=== PATIENT | male | born 1930 | race Caucasian/White ===

== ENCOUNTER 2017-02-13 11:40 | Inpatient (IN) | payer MEDICARE ==
[2017-02-13] MEDS ORDERED: Sodium Chloride 0.9% 1,000 ML IV SCH (13:00)
[2017-02-13] MEDS ORDERED: Furosemide 40 MG/4 ML VIAL IVPUSH ONE (13:12)
--- NOTE | 2017-02-13 13:20 | EDM.PDOC ---
ED HPI GENERAL MEDICAL PROBLEM - General Chief Complaint: General Stated Complaint: TURNED AND FELL Time Seen by Provider: 02/13/17 11:55 Source of Information: Reports: Patient History Limitations: Reports: No Limitations - History of Present Illness INITIAL COMMENTS - FREE TEXT/NARRATIVE: pt arrived with pain in the left hip. He was at [employer] getting books and he turned and fell. He was not able to bear wt on the left leg. He does not take any meds. He did have a coronay bypass about 5-6 years ago. He has not been having further chest pain. He states he has not been short of breath but he is not usually very active. He has had chronic swelling in the ankle area. He states his appetite has been good and he has been having bms. Onset: Today Duration: Minutes:, Other ( Pt fell at [employer]. ) Location: Reports: Lower Extremity, Left Associated Symptoms: Reports: Shortness of Breath, Other (pain in left hip. ) Left Hip Pain Score (Numeric/FACES): 7 - Related Data Allergies Allergy/AdvReac Type Severity Reaction Status Date / Time No Known Allergies Allergy Verified 02/13/17 12:21 Home Meds: Home Meds NK [No Known Home Meds] 02/13/17 [History] Past Medical History Cardiovascular History: Reports: Hypertension - Infectious Disease History Infectious Disease History: Reports: Chicken Pox, Measles, Mumps - Past Surgical History HEENT Surgical History: Reports: Cataract Surgery Cardiovascular Surgical History: Reports: Coronary Artery Bypass Social & Family History - Tobacco Use Smoking Status *Q: Never Smoker - Caffeine Use Caffeine Use: Reports: Soda - Recreational Drug Use Recreational Drug Use: No ED ROS GENERAL - Review of Systems Review Of Systems: See Below Constitutional: Reports: No Symptoms HEENT: Reports: No Symptoms Respiratory: Reports: Shortness of Breath Cardiovascular: Reports: Edema Endocrine: Reports: No Symptoms GI/Abdominal: Reports: No Symptoms : Reports: No Symptoms Musculoskeletal: Reports: Other (pain in the left hip) Skin: Reports: No Symptoms ED EXAM, GENERAL - Physical Exam Exam: See Below Free Text/Narrative:: pt fell at [employer] where he was buying books. He is having pain in the left hip. He has had chronic swelling in the legs. Exam Limited By: No Limitations General Appearance: Alert, Moderate Distress Ears: Normal TMs Nose: Normal Inspection Throat/Mouth: Normal Inspection Head: Atraumatic Neck: Normal Inspection Respiratory/Chest: No Respiratory Distress, Decreased Breath Sounds, Rales Cardiovascular: Regular Rate, Rhythm GI/Abdominal: Soft, Non-Tender (Male) Exam: Deferred Rectal (Males) Exam: Deferred Back Exam: Normal Inspection Extremities: Pedal Edema, Redness, Other ( some open areas on the legs. ) Neurological: Alert, Oriented, Normal Cognition Psychiatric: Normal Affect Course - Vital Signs Last Recorded V/S: Last Vital Signs Temp 36.6 C 02/13/17 11:51 Pulse 69 02/13/17 11:51 Resp 20 02/13/17 11:51 BP 206/127 H 02/13/17 11:51 Pulse Ox 95 02/13/17 11:51 - Orders/Labs/Meds Orders: Active Orders 24 hr Category Date Time Status EKG Documentation Completion [RC] ASDIRECTED Care 02/13/17 13:13 Ordered De Guzman Catheter Insertion [Insert Urinary Catheter] [OM. Care 02/13/17 13:15 Ordered PC] Q24H Urinary Catheter Assessment [RC] ASDIRECTED Care 02/13/17 13:13 Ordered Chest 1V Frontal [CR] Stat Exams 02/13/17 12:18 Taken Echo Ltd [US] Stat Exams 02/13/17 13:21 Ordered Hip Min 2V or 3V w Pelvis Lt [CR] Stat Exams 02/13/17 12:17 Taken CULTURE URINE [RM] Stat Lab 02/13/17 13:14 Uncollected Sodium Chloride 0.9% [Normal Saline] 1,000 ml Med 02/13/17 13:00 Active IV ASDIRECTED EKG 12 Lead [EK] Routine Ther 02/13/17 13:13 Ordered Medication Orders Sodium Chloride (Normal Saline) 1,000 mls @ 100 mls/hr IV ASDIRECTED CECY Labs: Laboratory Tests 02/13/17 02/13/17 02/13/17 Range/Units 12:15 12:15 12:15 WBC 8.2 (4.5-11.0) K/uL RBC 4.57 (4.30-5.90) M/uL Hgb 12.6 (12.0-15.0) g/dL Hct 41.0 (40.0-54.0) % MCV 90 (80-98) fL MCH 28 (27-31) pg MCHC 31 L (32-36) % Plt Count 237 (150-400) K/uL Neut % (Auto) 73 H (36-66) % Lymph % (Auto) 17 L (24-44) % Clare % (Auto) 8 H (2-6) % Eos % (Auto) 1 L (2-4) % Baso % (Auto) 1 (0-1) % Sodium 141 (140-148) mmol/L Potassium 3.2 L (3.6-5.2) mmol/L Chloride 104 (100-108) mmol/L Carbon Dioxide 37 H (21-32) mmol/L Anion Gap 3.2 L (5.0-14.0) mmol/L BUN 11 (7-18) mg/dL Creatinine 1.0 (0.8-1.3) mg/dL Est Cr Clr Drug Dosing 55.43 mL/min Estimated GFR (MDRD) > 60 (>60) Glucose 113 H (74-106) mg/dL Calcium 8.4 L (8.5-10.1) mg/dL Total Bilirubin 0.6 (0.2-1.0) mg/dL AST 9 L (15-37) U/L ALT 7 L (12-78) U/L Alkaline Phosphatase 87 (46-116) U/L Plv-W-Lsljzqrrubb Pept 2455 H (5-450) pg/mL Total Protein 6.9 (6.4-8.2) g/dL Albumin 2.5 L (3.4-5.0) g/dL Globulin 4.4 H (2.3-3.5) g/dL Albumin/Globulin Ratio 0.6 L (1.2-2.2) Urine Color Urine Appearance Urine pH (4.5-8.0) Ur Specific [place] (1.008-1.030) Urine Protein (NEGATIVE) mg/dL Urine Glucose (UA) (NEGATIVE) mg/dL Urine Ketones (NEGATIVE) mg/dL Urine Occult Blood (NEGATIVE) Urine Nitrite (NEGAITVE) Urine Bilirubin (NEGATIVE) Urine Urobilinogen (NORMAL) mg/dL Ur Leukocyte Esterase (NEGATIVE) Urine RBC (0-5) Urine WBC (0-5) Ur Epithelial Cells Amorphous Sediment Urine Bacteria Urine Mucus 02/13/17 Range/Units 12:56 WBC (4.5-11.0) K/uL RBC (4.30-5.90) M/uL Hgb (12.0-15.0) g/dL Hct (40.0-54.0) % MCV (80-98) fL MCH (27-31) pg MCHC (32-36) % Plt Count (150-400) K/uL Neut % (Auto) (36-66) % Lymph % (Auto) (24-44) % Clare % (Auto) (2-6) % Eos % (Auto) (2-4) % Baso % (Auto) (0-1) % Sodium (140-148) mmol/L Potassium (3.6-5.2) mmol/L Chloride (100-108) mmol/L Carbon Dioxide (21-32) mmol/L Anion Gap (5.0-14.0) mmol/L BUN (7-18) mg/dL Creatinine (0.8-1.3) mg/dL Est Cr Clr Drug Dosing mL/min Estimated GFR (MDRD) (>60) Glucose (74-106) mg/dL Calcium (8.5-10.1) mg/dL Total Bilirubin (0.2-1.0) mg/dL AST (15-37) U/L ALT (12-78) U/L Alkaline Phosphatase (46-116) U/L Lta-J-Wbokvfmccmp Pept (5-450) pg/mL Total Protein (6.4-8.2) g/dL Albumin (3.4-5.0) g/dL Globulin (2.3-3.5) g/dL Albumin/Globulin Ratio (1.2-2.2) Urine Color Yellow Urine Appearance Cloudy Urine pH 7.0 (4.5-8.0) Ur Specific [place] 1.005 L (1.008-1.030) Urine Protein 30 H (NEGATIVE) mg/dL Urine Glucose (UA) Normal (NEGATIVE) mg/dL Urine Ketones Negative (NEGATIVE) mg/dL Urine Occult Blood Large (NEGATIVE) Urine Nitrite Negative (NEGAITVE) Urine Bilirubin Negative (NEGATIVE) Urine Urobilinogen Normal (NORMAL) mg/dL Ur Leukocyte Esterase Large (NEGATIVE) Urine RBC 40-50 H (0-5) Urine WBC 75-100 H (0-5) Ur Epithelial Cells Occasional Amorphous Sediment Rare Urine Bacteria Moderate Urine Mucus Rare Meds: Medications Generic Name Dose Route Start Last Admin Trade Name Freq PRN Reason Stop Dose Admin Sodium Chloride 1,000 mls @ 100 mls/hr 02/13/17 13:00 Normal Saline IV ASDIRECTED CECY Discontinued Medications Generic Name Dose Route Start Last Admin Trade Name Freq PRN Reason Stop Dose Admin Furosemide 60 mg 02/13/17 13:12 Lasix IVPUSH 02/13/17 13:13 ONETIME ONE - Re-Assessments/Exams Free Text/Narrative Re-Assessment/Exam: 02/13/17 13:31 pt has evidence of chf on the chest xray, His k is 3.2. His ekg showed a sinus rhythm with pacs. An xray of the hip shows a communted fracture of the hip intratrochateric Departure - Departure Time of Disposition: 13:32 Disposition: Admitted As Inpatient 66 Condition: Fair Clinical Impression: Hip fracture, left, CHF (congestive heart failure), Stasis dermatitis of both legs - Discharge Information Forms: ED Department Discharge Care Plan Goals: admit to Dr Nielson. - My Orders Last 24 Hours: My Active Orders 02/13/17 12:17 Hip Min 2V or 3V w Pelvis Lt [CR] Stat 02/13/17 12:18 Chest 1V Frontal [CR] Stat 02/13/17 13:00 Sodium Chloride 0.9% [Normal Saline] 1,000 ml IV ASDIRECTED 02/13/17 13:13 EKG Documentation Completion [RC] ASDIRECTED Urinary Catheter Assessment [RC] ASDIRECTED EKG 12 Lead [EK] Routine 02/13/17 13:14 CULTURE URINE [RM] Stat 02/13/17 13:15 De Guzman Catheter Insertion [Insert Urinary Catheter] [OM.PC] Q24H 02/13/17 13:21 Echo Ltd [US] Stat - Assessment/Plan Last 24 Hours: My Active Orders 02/13/17 12:17 Hip Min 2V or 3V w Pelvis Lt [CR] Stat 02/13/17 12:18 Chest 1V Frontal [CR] Stat 02/13/17 13:00 Sodium Chloride 0.9% [Normal Saline] 1,000 ml IV ASDIRECTED 02/13/17 13:13 EKG Documentation Completion [RC] ASDIRECTED Urinary Catheter Assessment [RC] ASDIRECTED EKG 12 Lead [EK] Routine 02/13/17 13:14 CULTURE URINE [RM] Stat 02/13/17 13:15 De Guzman Catheter Insertion [Insert Urinary Catheter] [OM.PC] Q24H 02/13/17 13:21 Echo Ltd [US] Stat
--- NOTE | 2017-02-13 13:28 | CR ---
Moderate cardiomegaly. Multiple posterior rib fractures on the right which may be remote. Correlate clinically. Mild interstitial densities within both lungs which may indicate mild vascular congestio n.
--- NOTE | 2017-02-13 13:52 | CR ---
Intertrochanteric fracture left hip with lesser trochanteric fracture fragment. Moderate degenerativ e changes right hip.
--- NOTE | 2017-02-13 14:32 | PCM.HP ---
H&P History of Present Illness - General Date of Service: 02/13/17 Admit Problem/Dx: Admission Diagnosis/Problem Admission Diagnosis/Problem Hip fracture requiring operative repair Source of Information: Patient, Provider History Limitations: Reports: No Limitations - History of Present Illness Initial Comments - Free Text/Narative: Axel returns to the emergency room today with left hip pain and inability to move his left hip. he was at a local store looking at books when he tripped and fell landing on his own excision left side. He reported sharp severe sudden pain in his left hip area. He tried to get up off the floor but was unable to move his leg. The pain does not radiate. He has not taken anything for the pain. Moving makes the pain more severe. He has not had recent difficulties with fevers but has noticed increased urinary frequency. Appetite and energy have been at baseline. He becomes short of breath after approximately one block of ambulation. This is chronic and stable for him. Lower extremity edema has been present for years and is stable. No recent difficulties with chest pain or exertional chest pain. Workup in the emergency room revealed evidence for mild congestive heart failure and a left hip fracture. He'll be admitted for medical management and surgical intervention. Left Hip Pain Score (Numeric/FACES): 7 - Related Data Allergies/Adverse Reactions: Allergies Allergy/AdvReac Type Severity Reaction Status Date / Time No Known Allergies Allergy Verified 02/13/17 12:21 Home Medications: Home Meds NK [No Known Home Meds] 02/13/17 [History] Past Medical History Cardiovascular History: Reports: Hypertension - Infectious Disease History Infectious Disease History: Reports: Chicken Pox, Measles, Mumps - Past Surgical History HEENT Surgical History: Reports: Cataract Surgery Cardiovascular Surgical History: Reports: Coronary Artery Bypass Social & Family History - Family History Cardiac: Denies: CAD - Tobacco Use Smoking Status *Q: Never Smoker - Caffeine Use Caffeine Use: Reports: Soda - Alcohol Use Alcohol Use History: No - Recreational Drug Use Recreational Drug Use: No H&P Review of Systems - Review of Systems: Review Of Systems: See Below Free Text/Narrative: A complete 12 point review of systems was obtained. Pertinent positives and negatives are noted in the history of present illness. All other systems were reviewed and were negative except as noted. Exam - Exam Exam: See Below - Vital Signs Vital Signs: Last Vital Signs Temp 36.6 C 02/13/17 11:51 Pulse 69 02/13/17 11:51 Resp 20 02/13/17 11:51 BP 206/127 H 02/13/17 11:51 Pulse Ox 95 02/13/17 11:51 Weight: 90.718 kg - Exam Quality Assessment: No: Supplemental Oxygen General: Alert, Oriented, Cooperative. No: Mild Distress HEENT: Conjunctiva Clear, Mucosa Moist & [place], Other (hard of hearing). No: Scleral Icterus Neck: Supple, Trachea Midline. No: Lymphadenopathy, Thyromegaly Lungs: Normal Respiratory Effort, Decreased Breath Sounds (mild at bases), Rales (few at bases) Cardiovascular: Regular Rate, Irregular Rhythm, Systolic Murmur GI/Abdominal Exam: Normal Bowel Sounds, Soft, Non-Tender, No Distention, No Mass Back Exam: No: Muscle Spasm, Paraspinal Tenderness Extremities: Pedal Edema (pitting edema with venous stasis changes on lower 2/3 of both legs), Other (left leg shortened and externally rotated) Skin: Warm, Dry. No: Ecchymosis Neuro Extensive - Mental Status: Alert, Oriented x3, Nl Response to Commands Neuro Extensive - Motor, Sensory, Reflexes: CN II-XII Intact. No: Dysarthria, Abnormal Motor, Tremor Psychiatric: Alert, Normal Affect - Patient Data Lab Results Last 24 hrs: Laboratory Results - last 24 hr 02/13/17 02/13/17 02/13/17 Range/Units 12:15 12:15 12:15 WBC 8.2 (4.5-11.0) K/uL RBC 4.57 (4.30-5.90) M/uL Hgb 12.6 (12.0-15.0) g/dL Hct 41.0 (40.0-54.0) % MCV 90 (80-98) fL MCH 28 (27-31) pg MCHC 31 L (32-36) % Plt Count 237 (150-400) K/uL Neut % (Auto) 73 H (36-66) % Lymph % (Auto) 17 L (24-44) % Eddy % (Auto) 8 H (2-6) % Eos % (Auto) 1 L (2-4) % Baso % (Auto) 1 (0-1) % Sodium 141 (140-148) mmol/L Potassium 3.2 L (3.6-5.2) mmol/L Chloride 104 (100-108) mmol/L Carbon Dioxide 37 H (21-32) mmol/L Anion Gap 3.2 L (5.0-14.0) mmol/L BUN 11 (7-18) mg/dL Creatinine 1.0 (0.8-1.3) mg/dL Est Cr Clr Drug Dosing 55.43 mL/min Estimated GFR (MDRD) > 60 (>60) Glucose 113 H (74-106) mg/dL Calcium 8.4 L (8.5-10.1) mg/dL Total Bilirubin 0.6 (0.2-1.0) mg/dL AST 9 L (15-37) U/L ALT 7 L (12-78) U/L Alkaline Phosphatase 87 (46-116) U/L Ppe-M-Uuuyurnlfws Pept 2455 H (5-450) pg/mL Total Protein 6.9 (6.4-8.2) g/dL Albumin 2.5 L (3.4-5.0) g/dL Globulin 4.4 H (2.3-3.5) g/dL Albumin/Globulin Ratio 0.6 L (1.2-2.2) Urine Color Urine Appearance Urine pH (4.5-8.0) Ur Specific [place] (1.008-1.030) Urine Protein (NEGATIVE) mg/dL Urine Glucose (UA) (NEGATIVE) mg/dL Urine Ketones (NEGATIVE) mg/dL Urine Occult Blood (NEGATIVE) Urine Nitrite (NEGAITVE) Urine Bilirubin (NEGATIVE) Urine Urobilinogen (NORMAL) mg/dL Ur Leukocyte Esterase (NEGATIVE) Urine RBC (0-5) Urine WBC (0-5) Ur Epithelial Cells Amorphous Sediment Urine Bacteria Urine Mucus 02/13/17 Range/Units 12:56 WBC (4.5-11.0) K/uL RBC (4.30-5.90) M/uL Hgb (12.0-15.0) g/dL Hct (40.0-54.0) % MCV (80-98) fL MCH (27-31) pg MCHC (32-36) % Plt Count (150-400) K/uL Neut % (Auto) (36-66) % Lymph % (Auto) (24-44) % Eddy % (Auto) (2-6) % Eos % (Auto) (2-4) % Baso % (Auto) (0-1) % Sodium (140-148) mmol/L Potassium (3.6-5.2) mmol/L Chloride (100-108) mmol/L Carbon Dioxide (21-32) mmol/L Anion Gap (5.0-14.0) mmol/L BUN (7-18) mg/dL Creatinine (0.8-1.3) mg/dL Est Cr Clr Drug Dosing mL/min Estimated GFR (MDRD) (>60) Glucose (74-106) mg/dL Calcium (8.5-10.1) mg/dL Total Bilirubin (0.2-1.0) mg/dL AST (15-37) U/L ALT (12-78) U/L Alkaline Phosphatase (46-116) U/L Pfd-O-Andhfgxpkno Pept (5-450) pg/mL Total Protein (6.4-8.2) g/dL Albumin (3.4-5.0) g/dL Globulin (2.3-3.5) g/dL Albumin/Globulin Ratio (1.2-2.2) Urine Color Yellow Urine Appearance Cloudy Urine pH 7.0 (4.5-8.0) Ur Specific [place] 1.005 L (1.008-1.030) Urine Protein 30 H (NEGATIVE) mg/dL Urine Glucose (UA) Normal (NEGATIVE) mg/dL Urine Ketones Negative (NEGATIVE) mg/dL Urine Occult Blood Large (NEGATIVE) Urine Nitrite Negative (NEGAITVE) Urine Bilirubin Negative (NEGATIVE) Urine Urobilinogen Normal (NORMAL) mg/dL Ur Leukocyte Esterase Large (NEGATIVE) Urine RBC 40-50 H (0-5) Urine WBC 75-100 H (0-5) Ur Epithelial Cells Occasional Amorphous Sediment Rare Urine Bacteria Moderate Urine Mucus Rare Result Diagrams: 02/13/17 12:15 02/13/17 12:15 Imaging Impressions Last 24 hrs: CXR - images personally reviewed - mild diffuse interstial changes concerning for CHF. No mass. Heart size is enlarged. Previous sternotomy XR right hip - images also personally reviewed - comminuted subtrochanteric left hip fracure EKG INTERPRETATION EKG Date: 02/13/17 Rhythm: NSR Rate (Beats/Min): 65 [place]: Normal P-Wave: Variable (PAC's) QRS: Normal ST-T: Normal QT: Normal *Q Meaningful Use (ADM) - VTE *Q VTE Criteria *Q: VTE Pharmacological Contraindications *Q: Patient Scheduled Surgery - VTE Risk Assess *Q Each Risk Factor Represents 1 Point: Swollen Legs, Current, Congestive Heart Failure, Less than 1 Month Total Score 1 Point Risk Factors: 2 Each Risk Factor Represents 2 Points: None Total Score 2 Point Risk Factors: 0 Each Risk Factor Represents 3 Points: Age 75 Years or Greater Total Score 3 Point Risk Factors: 3 Each Risk Factor Represents 5 Points: Hip, Pelvis or Leg Fracture, Less than 1 month Total Score 5 Point Risk Factors: 5 Venous Thromboembolism Risk Factor Score *Q: 10 - Stroke *Q Stroke Criteria *Q: - AMI *Q AMI Criteria *Q: - Problem List (1) Hip fracture, left SNOMED Code(s): 976322672 ICD Code: S72.002A - FRACTURE OF UNSP PART OF NECK OF LEFT FEMUR, INIT Status: Acute Current Visit: Yes Qualifiers: Encounter type: initial encounter Fracture type: closed Qualified Code(s) : S72.002A - Fracture of unspecified part of neck of left femur, initial encounter for closed fracture (2) CHF (congestive heart failure) SNOMED Code(s): 48012896 ICD Code: I50.9 - HEART FAILURE, UNSPECIFIED Status: Acute Current Visit : Yes Qualifiers: Congestive heart failure type: combined Congestive heart failure chronicity : chronic Qualified Code(s): I50.42 - Chronic combined systolic (congestive) and diastolic (congestive) heart failure (3) Hypokalemia SNOMED Code(s): 38402086 ICD Code: E87.6 - HYPOKALEMIA Status: Acute Current Visit: Yes Problem List Initiated/Reviewed/Updated: Yes Orders Last 24hrs: Active Orders 24 hr Category Date Time Status Patient Status Manage Transfer [TRANSFER] Routine ADT 02/13/17 14:11 Ordered EKG Documentation Completion [RC] ASDIRECTED Care 02/13/17 13:13 Active De Guzman Catheter Insertion [Insert Urinary Catheter] [OM. Care 02/13/17 13:15 Ordered PC] Q24H Urinary Catheter Assessment [RC] ASDIRECTED Care 02/13/17 13:13 Active Echo Comp wo Cont [US] Routine Exams 02/13/17 13:24 Taken CULTURE URINE [RM] Stat Lab 02/13/17 13:17 Received Sodium Chloride 0.9% [Normal Saline] 1,000 ml Med 02/13/17 13:00 Active IV ASDIRECTED cefTRIAXone [Rocephin] 2 gm Med 02/13/17 14:30 Active Sodium Chloride 0.9% [Normal Saline] 50 ml IV Q24H Resuscitation Status Routine Resus Stat 02/13/17 14:12 Ordered EKG 12 Lead [EK] Routine Ther 02/13/17 13:13 Ordered Medication Orders Sodium Chloride (Normal Saline) 1,000 mls @ 100 mls/hr IV ASDIRECTED CECY Ceftriaxone Sodium 2 gm/ (Sodium Chloride) 50 mls @ 100 mls/hr IV Q24H CECY Assessment/Plan Comment:: Assessment and plan - Closed left hip fracture - traumatic injury with resulting fracture. He will need operative intervention that needs some medical management prior to intervention. Once his blood pressure control has improved and he's had some diuresis he should be medically optimized for surgery. Physical activity is limited but he has not had recent difficulties with chest pain and clinical status has been stable since his coronary artery bypass several years ago. -Consult Dr. Archibald for surgical intervention, anticipate surgery on Monday -Medical management as below -Mechanical DVT prophylaxis -Nonweightbearing left leg Combined systolic and diastolic congestive heart failure - clinically he sounds fairly well compensated but does have some evidence for volume overload and would benefit from at least some diuresis and medication management. Formal echocardiogram read is pending but he appears to have mildly reduced LV function and mild mitral regurgitation. He has received furosemide in the emergency room. -intake and output monitoring -Initiating VIVIENNE inhibitor and beta jannette -Reassess volume status tomorrow -REJI stockings Accelerated hypertension - not on medications at home but has not been doctoring regularly. He has stage II hypertension and will require at least 2 medications. -Start lisinopril 20 mg daily -start low-dose metoprolol -monitor blood pressures and adjust as needed Coronary artery disease - history of 5 vessel bypass approximately 10 years ago. No recent symptoms to suggest ischemic heart disease is active. -Management as above Maintenance issues - - DVT prophylaxis - mechanical - GI prophylaxis - not indicated - Nutrition - low sodium diet - De Guzman catheter - placed in the emergency room with hip fracture and for intake and output monitoring CODE STATUS - full treatment without intubation and without ACLS Admission justification - This patient will be admitted for inpatient services and is medically appropriate meeting medical necessity for inpatient admission as outlined in my documentation. I reasonably expect the patient will require inpatient services that span a period time over 2 midnights. I reasonably expect this patient to be discharged or transferred within 96 hours after admission to the [facility]. Disposition - [facility] [place] [facility] after the hospital stay Primary care physician - none Miguel A Nielson M.D.
[2017-02-13] MEDS: cefTRIAXone 2 GM in Sodium Chloride 0.9% 50 ML IV SCH (15:08)
[2017-02-13] MEDS ORDERED: Ondansetron 4 MG/2 ML SDV IV PRN (16:36)
[2017-02-13] MEDS ORDERED: Ondansetron 4 MG Tab.DIS PO PRN (16:36)
[2017-02-13] MEDS ORDERED: Polyethylene Glycol 3350 Powder 17 GM Packet PO PRN (16:36)
[2017-02-13] MEDS ORDERED: Morphine 2 MG/ML Syringe IVPUSH PRN (16:36)
[2017-02-13] MEDS ORDERED: Potassium Chloride 20 MEQ Tab.ER PO ONE (17:30)
[2017-02-13] MEDS: Lisinopril 20 MG Tab PO SCH (17:35)
[2017-02-13] MEDS: oxyCODONE 5 MG Tab PO PRN (17:38)
[2017-02-13] MEDS: Metoprolol Tartrate 25 MG Tab PO SCH (20:34)
[2017-02-14] MEDS: oxyCODONE 5 MG Tab PO PRN ×4 (00:25→23:06)
[2017-02-14] MEDS: Metoprolol Tartrate 25 MG Tab PO SCH ×2 (08:57→21:50)
[2017-02-14] MEDS: Lisinopril 20 MG Tab PO SCH (08:57)
[2017-02-14] MEDS: Acetaminophen 325 MG Tab PO PRN ×2 (09:01→13:24)
--- NOTE | 2017-02-14 11:33 | PCM.PN ---
- General Info Date of Service: 02/14/17 Functional Status: Reports: Pain Controlled, Tolerating Diet - Review of Systems General: Denies: Fever Pulmonary: Denies: Shortness of Breath Cardiovascular: Denies: Chest Pain Musculoskeletal: Reports: Leg Pain (left hip) Systems Review Comment:: no acute events overnight. Blood pressures have improved with the addition of lisinopril and metoprolol. Hip pain is well controlled as long as he is sitting still but he has moderate pain with activity. No complaints of abdominal pain or nausea. Urine culture is pending at this time. Excellent diuresis yesterday with a single dose of furosemide and he appears to be well compensated today. - Patient Data Vitals - Most Recent: Last Vital Signs Temp 37.3 C 02/14/17 10:40 Pulse 66 02/14/17 10:40 Resp 16 02/14/17 10:40 BP 132/60 02/14/17 10:40 Pulse Ox 92 L 02/14/17 10:40 Weight - Most Recent: 88.6 kg I&O - Last 24 Hours: Intake & Output 02/13/17 02/14/17 02/14/17 22:59 06:59 14:59 Intake Total 1222 738 2232 Output Total 1375 1000 Balance -335 -400 1160 Lab Results Last 24 Hours: Laboratory Results - last 24 hr 02/14/17 02/14/17 Range/Units 04:45 04:45 WBC 11.8 H (4.5-11.0) K/uL RBC 4.22 L (4.30-5.90) M/uL Hgb 12.1 (12.0-15.0) g/dL Hct 37.2 L (40.0-54.0) % MCV 88 (80-98) fL MCH 29 (27-31) pg MCHC 33 (32-36) % Plt Count 238 (150-400) K/uL Sodium 138 L (140-148) mmol/L Potassium 4.8 (3.6-5.2) mmol/L Chloride 101 (100-108) mmol/L Carbon Dioxide 32 (21-32) mmol/L Anion Gap 9.8 (5.0-14.0) mmol/L BUN 13 (7-18) mg/dL Creatinine 1.1 (0.8-1.3) mg/dL Est Cr Clr Drug Dosing 48.85 mL/min Estimated GFR (MDRD) > 60 (>60) Glucose 122 H (74-106) mg/dL Calcium 8.1 L (8.5-10.1) mg/dL Med Orders - Current: Current Medications Acetaminophen (Tylenol) 650 mg PO Q4H PRN PRN Reason: Pain (Mild 1-3)/fever Last Admin: 02/14/17 09:01 Dose: 650 mg Ceftriaxone Sodium 2 gm/ (Sodium Chloride) 50 mls @ 100 mls/hr IV Q24H [facility] Last Admin: 02/13/17 15:08 Dose: 100 mls/hr Lisinopril (Prinivil) 20 mg PO DAILY [facility] Last Admin: 02/14/17 08:57 Dose: 20 mg Metoprolol Tartrate (Lopressor) 12.5 mg PO BID [facility] Last Admin: 02/14/17 08:57 Dose: 12.5 mg Morphine Sulfate (Morphine) 2 - 4 mg IVPUSH Q2H PRN PRN Reason: Pain (severe 7-10) Ondansetron HCl (Zofran Odt) 4 mg PO Q6H PRN PRN Reason: Nausea able to take PO Ondansetron HCl (Zofran) 4 mg IV Q6H PRN PRN Reason: Nausea/Vomiting Oxycodone HCl (Oxycodone) 5 - 10 mg PO Q4H PRN PRN Reason: Pain (moderate 4-6) Last Admin: 02/14/17 09:01 Dose: 10 mg Pneumococcal Polyvalent Vaccine (Pneumovax 23) 0.5 ml IM .ONCE ONE Stop: 02/18/17 09:01 Polyethylene Glycol (Miralax) 17 gm PO DAILY PRN PRN Reason: Constipation Senna/Docusate Sodium (Senna Plus) 1 tab PO BID PRN PRN Reason: Constipation Discontinued Medications Furosemide (Lasix) 60 mg IVPUSH ONETIME ONE Stop: 02/13/17 13:13 Last Admin: 02/13/17 15:06 Dose: 60 mg Sodium Chloride (Normal Saline) 1,000 mls @ 100 mls/hr IV ASDIRECTED [facility] Last Admin: 02/13/17 15:06 Dose: 100 mls/hr Potassium Chloride (Klor-Con M20) 40 meq PO ONETIME ONE Stop: 02/13/17 17:31 Last Admin: 02/13/17 17:35 Dose: 40 meq - Exam Quality Assessment: No: Supplemental Oxygen General: Alert, Oriented, Cooperative, No Acute Distress HEENT: Pupils Equal Neck: Supple Lungs: Clear to Auscultation, Normal Respiratory Effort Cardiovascular: Regular Rate, Irregular Rhythm. No: Murmurs GI/Abdominal Exam: Soft, No Distention Extremities: Pedal Edema (mild bilateral ankle edema) Skin: Warm, Dry Psy/Mental Status: Alert, Normal Affect - Problem List & Annotations (1) Hip fracture, left SNOMED Code(s): 415163739 Code(s): S72.002A - FRACTURE OF UNSP PART OF NECK OF LEFT FEMUR, INIT Status: Acute Current Visit: Yes Qualifiers: Encounter type: initial encounter Fracture type: closed Qualified Code(s) : S72.002A - Fracture of unspecified part of neck of left femur, initial encounter for closed fracture (2) CHF (congestive heart failure) SNOMED Code(s): 35745066 Code(s): I50.9 - HEART FAILURE, UNSPECIFIED Status: Acute Current Visit: Yes Qualifiers: Congestive heart failure type: combined Congestive heart failure chronicity : chronic Qualified Code(s): I50.42 - Chronic combined systolic (congestive) and diastolic (congestive) heart failure (3) Hypokalemia SNOMED Code(s): 15932735 Code(s): E87.6 - HYPOKALEMIA Status: Acute Current Visit: Yes - Problem List Review Problem List Initiated/Reviewed/Updated: Yes - My Orders Last 24 Hours: My Active Orders 02/18/17 09:00 Pneumococcal Polyvalent-23 Vac [Pneumovax 23] 0.5 ml IM .ONCE ONE - Plan Plan:: Assessment and plan - Closed left hip fracture - traumatic injury with resulting fracture. I believe he is medically optimized at this time and is safe for surgery tomorrow with the benefits of surgery outweigh the risks at this point. blood pressure levels have been acceptable and heart failure is well compensated. Left ventricular ejection fraction is only very mildly reduced. -anticipate surgery with Dr. 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 He is not hypoxic. Lower extremity edema has essentially resolved. -intake and output monitoring -continue VIVIENNE inhibitor and beta jannette -Reassess volume status daily -REJI stockings Accelerated hypertension - blood pressure much better after medications initiated yesterday. -continue lisinopril and metoprolol -monitor blood pressures and adjust as needed Coronary artery disease - history of 5 vessel bypass approximately 10 years ago. No recent symptoms to suggest ischemic heart disease is active. -Management as above Maintenance issues - - DVT prophylaxis - mechanical - GI prophylaxis - not indicated - Nutrition - low sodium diet - De Guzman catheter - placed in the emergency room with hip fracture and for intake and output monitoring Disposition - anticipate discharge to the [facility] after the hospital stay Primary care physician - [facility] (formerly [facility]) Miguel A Nielson M.D.
[2017-02-14] MEDS ORDERED: Nystatin Topical Powder 15 GM Bottle TOP SCH (11:45)
[2017-02-14] MEDS: Nystatin Topical Powder 15 GM Bottle TOP SCH ×2 (13:20→21:50)
[2017-02-14] MEDS: cefTRIAXone 2 GM in Sodium Chloride 0.9% 50 ML IV SCH (14:56)
[2017-02-15] MEDS: oxyCODONE 5 MG Tab PO PRN (03:03)
[2017-02-15] MEDS ORDERED: ceFAZolin 2 GM in Premix Bag 1 BAG IV ONE (07:00)
[2017-02-15] MEDS ORDERED: Sodium Chloride 0.9% 300 ML IV ONE (07:00)
[2017-02-15] MEDS: Metoprolol Tartrate 25 MG Tab PO SCH ×3 (07:50→21:14)
[2017-02-15] MEDS ORDERED: Bupivacaine 0.5%/EPINEPHrine 1:200,000 50 ML MDV ONE (08:51)
[2017-02-15] MEDS ORDERED: Povidone-Iodine 10% Soln 118.25 ML Bottle ONE (08:51)
[2017-02-15] MEDS: Nystatin Topical Powder 15 GM Bottle TOP SCH ×2 (09:02→21:14)
[2017-02-15] MEDS ORDERED: Propofol 200 MG/20 ML SDV ONE (09:10)
[2017-02-15] MEDS ORDERED: fentaNYL 100 MCG/2 ML SDV ONE (09:10)
[2017-02-15] MEDS ORDERED: Midazolam 1 MG/ML 2 ML SDV ONE (09:10)
[2017-02-15] MEDS ORDERED: Docusate Sodium 100 MG Cap PO PRN (11:29)
[2017-02-15] MEDS ORDERED: diphenhydrAMINE 50 MG/ML SDV IVPUSH PRN (11:29)
[2017-02-15] MEDS ORDERED: Bisacodyl 5 MG Tab PO PRN (11:29)
[2017-02-15] MEDS ORDERED: Acetaminophen/oxyCODONE 325-5 MG Tab PO PRN (11:29)
[2017-02-15] MEDS ORDERED: Sennosides 8.6 MG Tab PO PRN (11:29)
[2017-02-15] MEDS ORDERED: Zolpidem 5 MG Tab PO PRN (11:29)
[2017-02-15] MEDS ORDERED: Aluminum Hydroxide/Magnesium Hydroxide/Simethicone Susp 30 ML Cup PO PRN (11:29)
[2017-02-15] MEDS ORDERED: Naloxone 0.4 MG/ML SDV IVPUSH PRN (11:29)
[2017-02-15] MEDS ORDERED: Magnesium Hydroxide 400 MG/5 ML Susp 30 ML Cup PO PRN (11:29)
[2017-02-15] MEDS ORDERED: fentaNYL 100 MCG/2 ML SDV IVPUSH ONE (11:51)
[2017-02-15] MEDS: Lisinopril 20 MG Tab PO SCH (12:38)
[2017-02-15] MEDS: Potassium Chloride 20 MEQ, Lidocaine 1% 2 ML in Sodium Chloride 0.9% 100 ML IV SCH ×2 (12:38→14:32)
[2017-02-15] MEDS: Ketorolac 30 MG/ML SDV IVPUSH PRN (12:59)
[2017-02-15] MEDS: Lactated Ringers 1,000 ML IV SCH (14:45)
[2017-02-15] MEDS: ceFAZolin 2 GM in Sodium Chloride 0.9% 50 ML IV SCH (15:56)
--- NOTE | 2017-02-15 16:29 | PCM.PN ---
- General Info Date of Service: 02/15/17 Functional Status: Reports: Pain Controlled, Tolerating Diet - Review of Systems General: Reports: Other Pulmonary: Denies: Shortness of Breath Musculoskeletal: Reports: Leg Pain Systems Review Comment:: No acute events overnight. Blood pressure fairly well controlled yesterday but better this morning. Pain has been well-controlled. He is not having any fevers. Urine culture is growing no bacteria at this time and antibiotics will be discontinued. Surgical intervention plan to complete this morning. - Patient Data Vitals - Most Recent: Last Vital Signs Temp 36.7 C 02/15/17 15:57 Pulse 68 02/15/17 15:57 Resp 16 02/15/17 15:57 BP 104/56 L 02/15/17 15:57 Pulse Ox 99 02/15/17 15:07 Weight - Most Recent: 88.6 kg I&O - Last 24 Hours: Intake & Output 02/15/17 02/15/17 02/15/17 06:59 14:59 22:59 Intake Total 700 712 Output Total 1400 Balance -700 712 Lab Results Last 24 Hours: Laboratory Results - last 24 hr 02/15/17 02/15/17 Range/Units 06:00 06:00 WBC 12.0 H (4.5-11.0) K/uL RBC 3.95 L (4.30-5.90) M/uL Hgb 11.0 L (12.0-15.0) g/dL Hct 34.6 L (40.0-54.0) % MCV 88 (80-98) fL MCH 28 (27-31) pg MCHC 32 (32-36) % Plt Count 241 (150-400) K/uL Sodium 138 L (140-148) mmol/L Potassium 3.4 L (3.6-5.2) mmol/L Chloride 100 (100-108) mmol/L Carbon Dioxide 35 H (21-32) mmol/L Anion Gap 6.4 (5.0-14.0) mmol/L BUN 15 (7-18) mg/dL Creatinine 1.0 (0.8-1.3) mg/dL Est Cr Clr Drug Dosing 53.87 mL/min Estimated GFR (MDRD) > 60 (>60) Glucose 124 H (74-106) mg/dL Calcium 8.1 L (8.5-10.1) mg/dL Med Orders - Current: Current Medications Al Hydroxide/Mg Hydroxide (Mag-Al Plus) 30 ml PO Q4H PRN PRN Reason: Constipation Aspirin (Ecotrin) 325 mg PO BID [facility] Bisacodyl (Dulcolax) 10 mg PO DAILY PRN PRN Reason: Constipation Diazepam (Valium) 5 mg IVPUSH Q6H PRN PRN Reason: Spasms Diphenhydramine HCl (Benadryl) 25 mg IVPUSH Q4H PRN PRN Reason: Itching Docusate Sodium (Colace) 100 mg PO BID PRN PRN Reason: Constipation Lactated Ringer's (Ringers, Lactated) 1,000 mls @ 100 mls/hr IV ASDIRECTED [facility] Last Admin: 02/15/17 14:45 Dose: 100 mls/hr Cefazolin Sodium 2 gm/ Sodium (Chloride) 50 mls @ 100 mls/hr IV Q8H [facility] Stop: 02/16/17 08:29 Last Admin: 02/15/17 15:56 Dose: 100 mls/hr Ketorolac Tromethamine (Toradol) 15 mg IVPUSH Q8H PRN PRN Reason: Pain Stop: 02/20/17 11:29 Last Admin: 02/15/17 12:59 Dose: 15 mg Lisinopril (Prinivil) 20 mg PO DAILY [facility] Last Admin: 02/15/17 12:38 Dose: 20 mg Magnesium Hydroxide (Milk Of Magnesia) 30 ml PO BID PRN PRN Reason: Constipation Metoprolol Tartrate (Lopressor) 12.5 mg PO BID [facility] Last Admin: 02/15/17 08:41 Dose: Not Given Morphine Sulfate (Morphine) 2 - 4 mg IVPUSH Q2H PRN PRN Reason: Pain (severe 7-10) Last Admin: 02/15/17 13:00 Dose: 2 mg Nystatin (Nystop) 0 gm TOP BID [facility] Last Admin: 02/15/17 09:02 Dose: 1 applic Ondansetron HCl (Zofran Odt) 4 mg PO Q6H PRN PRN Reason: Nausea able to take PO Ondansetron HCl (Zofran) 4 mg IV Q6H PRN PRN Reason: Nausea/Vomiting Oxycodone/Acetaminophen (Percocet 325-5 Mg) 2 tab PO Q4H PRN PRN Reason: Pain Last Admin: 02/15/17 14:24 Dose: 2 tab Pneumococcal Polyvalent Vaccine (Pneumovax 23) 0.5 ml IM .ONCE ONE Stop: 02/18/17 09:01 Polyethylene Glycol (Miralax) 17 gm PO DAILY PRN PRN Reason: Constipation Senna (Senna) 8.6 mg PO BID PRN PRN Reason: Constipation Senna/Docusate Sodium (Senna Plus) 1 tab PO BID PRN PRN Reason: Constipation Sodium Chloride (Saline Flush) 10 ml FLUSH DAILY [facility] Tramadol HCl (Ultram) 100 mg PO Q6H PRN PRN Reason: Pain Zolpidem Tartrate (Ambien) 5 mg PO BEDTIME PRN PRN Reason: Sleep Discontinued Medications Acetaminophen (Tylenol) 650 mg PO Q4H PRN PRN Reason: Pain (Mild 1-3)/fever Last Admin: 02/14/17 13:24 Dose: 650 mg Bupivacaine HCl/Epinephrine Bitart (Marcaine 0.5%/Epinephrine 1:200,000) Confirm Administered Dose 50 ml .ROUTE .STK-MED ONE Stop: 02/15/17 08:52 Last Admin: 02/15/17 11:20 Dose: 20 ml Fentanyl (Sublimaze) Confirm Administered Dose 100 mcg .ROUTE .STK-MED ONE Stop: 02/15/17 09:11 Fentanyl (Sublimaze) 50 mcg IVPUSH ONETIME ONE Stop: 02/15/17 11:52 Last Admin: 02/15/17 11:57 Dose: 50 mcg Furosemide (Lasix) 60 mg IVPUSH ONETIME ONE Stop: 02/13/17 13:13 Last Admin: 02/13/17 15:06 Dose: 60 mg Sodium Chloride (Normal Saline) 1,000 mls @ 100 mls/hr IV ASDIRECTED [facility] Last Admin: 02/13/17 15:06 Dose: 100 mls/hr Ceftriaxone Sodium 2 gm/ (Sodium Chloride) 50 mls @ 100 mls/hr IV Q24H [facility] Last Admin: 02/14/17 14:56 Dose: 100 mls/hr Sodium Chloride (Normal Saline) 300 mls @ 999 mls/hr IV .BOLUS ONE Stop: 02/15/17 07:18 Last Admin: 02/15/17 09:01 Dose: 999 mls/hr Cefazolin Sodium/Dextrose 2 gm (/ Premix) 50 mls @ 100 mls/hr IV ONETIME ONE Stop: 02/15/17 07:29 Last Admin: 02/15/17 09:02 Dose: 100 mls/hr Potassium Chloride 20 meq/Lidocaine HCl 2 ml/ Sodium Chloride 112 mls @ 56 mls/ hr IV Q2H [facility] Stop: 02/15/17 13:59 Last Admin: 02/15/17 14:32 Dose: 56 mls/hr Midazolam HCl (Versed 1 Mg/Ml) Confirm Administered Dose 2 mg .ROUTE .STK-MED ONE Stop: 02/15/17 09:11 Naloxone HCl (Narcan) 0.1 mg IVPUSH ONETIME PRN PRN Reason: Oversedation Stop: 02/15/17 11:30 Oxycodone HCl (Oxycodone) 5 - 10 mg PO Q4H PRN PRN Reason: Pain (moderate 4-6) Last Admin: 02/15/17 03:03 Dose: 10 mg Potassium Chloride (Klor-Con M20) 40 meq PO ONETIME ONE Stop: 02/13/17 17:31 Last Admin: 02/13/17 17:35 Dose: 40 meq Povidone Iodine (Betadine 10% Soln) Confirm Administered Dose 1 ml .ROUTE .STK- MED ONE Stop: 02/15/17 08:52 Last Admin: 02/15/17 11:15 Dose: 30 ml Propofol (Diprivan 20 Ml) Confirm Administered Dose 200 mg .ROUTE .STK-MED ONE Stop: 02/15/17 09:11 - Exam Quality Assessment: Supplemental Oxygen General: Alert, Oriented, Cooperative, No Acute Distress Neck: Supple Lungs: Clear to Auscultation, Normal Respiratory Effort Cardiovascular: Regular Rate, Regular Rhythm GI/Abdominal Exam: Soft, No Distention Extremities: No Pedal Edema Skin: Warm, Dry Wound/Incisions: Dressing Dry and Intact Psy/Mental Status: Alert, Normal Affect - Problem List & Annotations (1) Hip fracture, left SNOMED Code(s): 493811880 Code(s): S72.002A - FRACTURE OF UNSP PART OF NECK OF LEFT FEMUR, INIT Status: Acute Current Visit: Yes Qualifiers: Encounter type: initial encounter Fracture type: closed Qualified Code(s) : S72.002A - Fracture of unspecified part of neck of left femur, initial encounter for closed fracture (2) CHF (congestive heart failure) SNOMED Code(s): 46576538 Code(s): I50.9 - HEART FAILURE, UNSPECIFIED Status: Acute Current Visit: Yes Qualifiers: Congestive heart failure type: combined Congestive heart failure chronicity : chronic Qualified Code(s): I50.42 - Chronic combined systolic (congestive) and diastolic (congestive) heart failure (3) Hypokalemia SNOMED Code(s): 75359591 Code(s): E87.6 - HYPOKALEMIA Status: Acute Current Visit: Yes - Problem List Review Problem List Initiated/Reviewed/Updated: Yes - My Orders Last 24 Hours: My Active Orders 02/18/17 09:00 Pneumococcal Polyvalent-23 Vac [Pneumovax 23] 0.5 ml IM .ONCE ONE - Plan Plan:: Assessment and plan - Closed left hip fracture - traumatic injury with resulting fracture. Status post surgical intervention 02/15. Clinically stable since surgery. 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 Only mildly reduced left ventricular function. -intake and output monitoring -continue VIVIENNE inhibitor and beta jannette -Reassess volume status daily -REJI stockings Accelerated hypertension - blood pressure control has improved with medications as below. -continue lisinopril and metoprolol -monitor blood pressures and adjust as needed Coronary artery disease - history of 5 vessel bypass approximately 10 years ago. No recent symptoms to suggest ischemic heart disease is active. -Management as above Maintenance issues - - DVT prophylaxis - mechanical - GI prophylaxis - not indicated - Nutrition - low sodium diet - De Guzman catheter - placed in the emergency room with hip fracture and for intake and output monitoring, hopefully this can be removed tomorrow Disposition - anticipate discharge to the intermediate after the hospital stay Primary care physician - [facility] Miguel A Nielson M.D.
--- NOTE | 2017-02-15 18:01 | OR ---
DATE OF PROCEDURE: 02/15/2017 PREOPERATIVE DIAGNOSIS: Left hip subtrochanteric fracture. POSTOPERATIVE DIAGNOSIS: Left hip subtrochanteric fracture. PROCEDURE: Left hip cephalomedullary nailing. STATION TENDER: FERNANDA Alvarez. ANESTHESIA: Spinal plus conscious sedation. FLUID: Lactated Ringer solution. ESTIMATED BLOOD LOSS: 200 mL. COMPLICATIONS: None. SPECIMEN: None. DISCHARGE DISPOSITION: Stable to PACU. INDICATIONS: Risks and benefits of the procedure were explained to the patient. Informed consent was obtained. DETAILS OF PROCEDURE: The patient was seen by myself and the Anesthesia staff in his hospital room where the operative site was marked. He was brought to the operative suite by the Anesthesia staff where spinal sedation and conscious sedation was administered. He was then placed into a trauma table and stirrups. All extremities were found to be well padded. The traction stirrups were then used for slight reduction of the fracture and under fluoroscopy, the left lower extremity was then prepped and draped in a sterile manner. Time- out was called identifying the correct patient, correct procedure, the correct site, and antibiotics had been in with appropriate period of time. AP fluoroscopy was used to identify a starting point which was just on the posterior third of the greater trochanter. An awl was used to start. I did have to open up the fracture site and then used AP and lateral fluoro in order to pass the guidewire down to the distal femur. We measured a 360 mm nail, so we used a 16 mm entry reamer followed by sequential reaming up to 13.5 mm. We then inserted our nail and then using the same incision that was used for the fracture reduction, we placed our guidewire for the screw into the femoral head. This took a few times to do, but we got the tip apex distance definitely under 2.5 cm on AP and lateral fluoro. We measured a 105 screw. I reamed and then placed the screw, which was 10 mm x 105. We then locked this in place, and then removed our outrigger or guidewires and took proximal final films, AP and lateral. We then focused our attention on the perfect [place] technique to place the distal and oblong screws which were 48 and 44 mm in length. The AP and lateral final films were then taken. We then copiously irrigated with saline. We closed our deep fascia with 0 Vicryl in a running manner followed by 2-0 subcutaneous sutures, followed by skin kaleb, followed by sterile dressing. The patient was then transferred to the hospital bed in the supine position and taken to the PACU in good condition. Mark Archibald DO /[id number]
[2017-02-15] MEDS: Aspirin 325 MG Tab.EC PO SCH (21:14)
[2017-02-16] MEDS: ceFAZolin 2 GM in Sodium Chloride 0.9% 50 ML IV SCH ×2 (00:07→08:28)
[2017-02-16] MEDS ORDERED: Sodium Chloride 0.9% 500 ML IV ONE (00:35)
[2017-02-16] MEDS: Lactated Ringers 1,000 ML IV SCH (01:47)
[2017-02-16] MEDS: Ketorolac 30 MG/ML SDV IVPUSH PRN ×2 (01:51→14:12)
[2017-02-16] MEDS: traMADol 50 MG Tab PO PRN ×3 (06:29→20:56)
--- NOTE | 2017-02-16 06:53 | PCM.SN ---
- Free Text/Narrative Note: time 0100; call from [address] [place] [address]; Mr. Ohara is having low urine output a; decrease urine output p; given IV Normal Saline 500ml over one hour. continue to monitor closely.
[2017-02-16] MEDS: Aspirin 325 MG Tab.EC PO SCH ×2 (08:30→20:42)
[2017-02-16] MEDS: Metoprolol Tartrate 25 MG Tab PO SCH ×2 (08:30→20:51)
[2017-02-16] MEDS: Lisinopril 20 MG Tab PO SCH (08:30)
[2017-02-16] MEDS: Sodium Chloride 0.9% 10 ML Syringe FLUSH SCH (08:31)
[2017-02-16] MEDS: Nystatin Topical Powder 15 GM Bottle TOP SCH ×2 (08:31→20:42)
[2017-02-16] MEDS ORDERED: oxyCODONE 5 MG Tab PO PRN (15:58)
--- NOTE | 2017-02-16 16:00 | PCM.PN ---
- General Info Date of Service: 02/16/17 Functional Status: Reports: Pain Controlled, Tolerating Diet - Review of Systems General: Reports: Weakness Pulmonary: Reports: Shortness of Breath Musculoskeletal: Reports: Leg Pain Systems Review Comment:: No acute events overnight but he did have some mild difficulty with low urine output. This responded well to a single bolus of normal saline. Blood pressures and heart rate have remained stable. No complaints of shortness of breath. Minimal lower extremity edema at this time. Leg pain has been very well controlled unless he is ambulating/moving. He has not had any fevers. Blood pressure has been well-controlled. - Patient Data Vitals - Most Recent: Last Vital Signs Temp 36.2 C 02/16/17 11:40 Pulse 70 02/16/17 11:40 Resp 16 02/16/17 11:40 BP 120/58 L 02/16/17 11:40 Pulse Ox 93 L 02/16/17 12:30 Weight - Most Recent: 94.3 kg I&O - Last 24 Hours: Intake & Output 02/16/17 02/16/17 02/16/17 06:59 14:59 22:59 Intake Total 2350 500 Output Total 244 Balance 2106 500 Lab Results Last 24 Hours: Laboratory Results - last 24 hr 02/16/17 02/16/17 Range/Units 05:40 05:40 WBC 8.4 (4.5-11.0) K/uL RBC 3.30 L (4.30-5.90) M/uL Hgb 9.5 L (12.0-15.0) g/dL Hct 29.9 L (40.0-54.0) % MCV 91 (80-98) fL MCH 29 (27-31) pg MCHC 32 (32-36) % Plt Count 184 (150-400) K/uL Sodium 139 L (140-148) mmol/L Potassium 3.9 (3.6-5.2) mmol/L Chloride 103 (100-108) mmol/L Carbon Dioxide 34 H (21-32) mmol/L Anion Gap 5.9 (5.0-14.0) mmol/L BUN 18 (7-18) mg/dL Creatinine 1.1 (0.8-1.3) mg/dL Est Cr Clr Drug Dosing 48.97 mL/min Estimated GFR (MDRD) > 60 (>60) Glucose 105 (74-106) mg/dL Calcium 7.9 L (8.5-10.1) mg/dL Med Orders - Current: Current Medications Al Hydroxide/Mg Hydroxide (Mag-Al Plus) 30 ml PO Q4H PRN PRN Reason: Constipation Aspirin (Ecotrin) 325 mg PO BID [facility] Last Admin: 02/16/17 08:30 Dose: 325 mg Bisacodyl (Dulcolax) 10 mg PO DAILY PRN PRN Reason: Constipation Diazepam (Valium) 5 mg IVPUSH Q6H PRN PRN Reason: Spasms Diphenhydramine HCl (Benadryl) 25 mg IVPUSH Q4H PRN PRN Reason: Itching Docusate Sodium (Colace) 100 mg PO BID PRN PRN Reason: Constipation Ketorolac Tromethamine (Toradol) 15 mg IVPUSH Q8H PRN PRN Reason: Pain Stop: 02/20/17 11:29 Last Admin: 02/16/17 14:12 Dose: 15 mg Lisinopril (Prinivil) 20 mg PO DAILY [facility] Last Admin: 02/16/17 08:30 Dose: 20 mg Magnesium Hydroxide (Milk Of Magnesia) 30 ml PO BID PRN PRN Reason: Constipation Metoprolol Tartrate (Lopressor) 12.5 mg PO BID [facility] Last Admin: 02/16/17 08:30 Dose: 12.5 mg Morphine Sulfate (Morphine) 2 - 4 mg IVPUSH Q2H PRN PRN Reason: Pain (severe 7-10) Last Admin: 02/15/17 13:00 Dose: 2 mg Nystatin (Nystop) 0 gm TOP BID [facility] Last Admin: 02/16/17 08:31 Dose: 1 applic Ondansetron HCl (Zofran Odt) 4 mg PO Q6H PRN PRN Reason: Nausea able to take PO Ondansetron HCl (Zofran) 4 mg IV Q6H PRN PRN Reason: Nausea/Vomiting Pneumococcal Polyvalent Vaccine (Pneumovax 23) 0.5 ml IM .ONCE ONE Stop: 02/18/17 09:01 Polyethylene Glycol (Miralax) 17 gm PO DAILY PRN PRN Reason: Constipation Senna (Senna) 8.6 mg PO BID PRN PRN Reason: Constipation Senna/Docusate Sodium (Senna Plus) 1 tab PO BID PRN PRN Reason: Constipation Sodium Chloride (Saline Flush) 10 ml FLUSH DAILY [facility] Last Admin: 02/16/17 08:31 Dose: Not Given Tramadol HCl (Ultram) 100 mg PO Q6H PRN PRN Reason: Pain Last Admin: 02/16/17 14:11 Dose: 100 mg Zolpidem Tartrate (Ambien) 5 mg PO BEDTIME PRN PRN Reason: Sleep Discontinued Medications Acetaminophen (Tylenol) 650 mg PO Q4H PRN PRN Reason: Pain (Mild 1-3)/fever Last Admin: 02/14/17 13:24 Dose: 650 mg Bupivacaine HCl/Epinephrine Bitart (Marcaine 0.5%/Epinephrine 1:200,000) Confirm Administered Dose 50 ml .ROUTE .STK-MED ONE Stop: 02/15/17 08:52 Last Admin: 02/15/17 11:20 Dose: 20 ml Fentanyl (Sublimaze) Confirm Administered Dose 100 mcg .ROUTE .STK-MED ONE Stop: 02/15/17 09:11 Fentanyl (Sublimaze) 50 mcg IVPUSH ONETIME ONE Stop: 02/15/17 11:52 Last Admin: 02/15/17 11:57 Dose: 50 mcg Furosemide (Lasix) 60 mg IVPUSH ONETIME ONE Stop: 02/13/17 13:13 Last Admin: 02/13/17 15:06 Dose: 60 mg Sodium Chloride (Normal Saline) 1,000 mls @ 100 mls/hr IV ASDIRECTED [facility] Last Admin: 02/13/17 15:06 Dose: 100 mls/hr Ceftriaxone Sodium 2 gm/ (Sodium Chloride) 50 mls @ 100 mls/hr IV Q24H [facility] Last Admin: 02/14/17 14:56 Dose: 100 mls/hr Sodium Chloride (Normal Saline) 300 mls @ 999 mls/hr IV .BOLUS ONE Stop: 02/15/17 07:18 Last Admin: 02/15/17 09:01 Dose: 999 mls/hr Cefazolin Sodium/Dextrose 2 gm (/ Premix) 50 mls @ 100 mls/hr IV ONETIME ONE Stop: 02/15/17 07:29 Last Admin: 02/15/17 09:02 Dose: 100 mls/hr Potassium Chloride 20 meq/Lidocaine HCl 2 ml/ Sodium Chloride 112 mls @ 56 mls/ hr IV Q2H [facility] Stop: 02/15/17 13:59 Last Admin: 02/15/17 14:32 Dose: 56 mls/hr Lactated Ringer's (Ringers, Lactated) 1,000 mls @ 100 mls/hr IV ASDIRECTED [facility] Last Admin: 02/16/17 01:47 Dose: 100 mls/hr Cefazolin Sodium 2 gm/ Sodium (Chloride) 50 mls @ 100 mls/hr IV Q8H [facility] Stop: 02/16/17 08:29 Last Admin: 02/16/17 08:28 Dose: 100 mls/hr Sodium Chloride (Normal Saline) 500 mls @ 500 mls/hr IV .BOLUS ONE Stop: 02/16/17 01:34 Last Admin: 02/16/17 00:45 Dose: 500 mls/hr Midazolam HCl (Versed 1 Mg/Ml) Confirm Administered Dose 2 mg .ROUTE .STK-MED ONE Stop: 02/15/17 09:11 Naloxone HCl (Narcan) 0.1 mg IVPUSH ONETIME PRN PRN Reason: Oversedation Stop: 02/15/17 11:30 Oxycodone HCl (Oxycodone) 5 - 10 mg PO Q4H PRN PRN Reason: Pain (moderate 4-6) Last Admin: 02/15/17 03:03 Dose: 10 mg Oxycodone/Acetaminophen (Percocet 325-5 Mg) 2 tab PO Q4H PRN PRN Reason: Pain Last Admin: 02/15/17 14:24 Dose: 2 tab Potassium Chloride (Klor-Con M20) 40 meq PO ONETIME ONE Stop: 02/13/17 17:31 Last Admin: 02/13/17 17:35 Dose: 40 meq Povidone Iodine (Betadine 10% Soln) Confirm Administered Dose 1 ml .ROUTE .STK- MED ONE Stop: 02/15/17 08:52 Last Admin: 02/15/17 11:15 Dose: 30 ml Propofol (Diprivan 20 Ml) Confirm Administered Dose 200 mg .ROUTE .STK-MED ONE Stop: 02/15/17 09:11 - Exam Quality Assessment: Supplemental Oxygen General: Alert, Oriented, Cooperative, No Acute Distress Neck: Supple Lungs: Clear to Auscultation, Normal Respiratory Effort Cardiovascular: Regular Rate, Regular Rhythm, Murmurs GI/Abdominal Exam: Soft, No Distention Extremities: Pedal Edema (mild bilateral ankle edema). No: Increased Warmth Skin: Warm, Dry Psy/Mental Status: Alert, Normal Affect - Problem List & Annotations (1) Hip fracture, left SNOMED Code(s): 202350489 Code(s): S72.002A - FRACTURE OF UNSP PART OF NECK OF LEFT FEMUR, INIT Status: Acute Current Visit: Yes Qualifiers: Encounter type: initial encounter Fracture type: closed Qualified Code(s) : S72.002A - Fracture of unspecified part of neck of left femur, initial encounter for closed fracture (2) CHF (congestive heart failure) SNOMED Code(s): 77101923 Code(s): I50.9 - HEART FAILURE, UNSPECIFIED Status: Acute Current Visit: Yes Qualifiers: Congestive heart failure type: combined Congestive heart failure chronicity : chronic Qualified Code(s): I50.42 - Chronic combined systolic (congestive) and diastolic (congestive) heart failure (3) Hypokalemia SNOMED Code(s): 96348399 Code(s): E87.6 - HYPOKALEMIA Status: Acute Current Visit: Yes - Problem List Review Problem List Initiated/Reviewed/Updated: Yes - My Orders Last 24 Hours: My Active Orders 02/16/17 05:04 Air Mattress [Pressure Reduction Mattress] [OM.PC] Routine 02/16/17 14:01 Convert IV to Saline Lock [OM.PC] Routine 02/16/17 15:56 Furosemide [Lasix] 20 mg IVPUSH ONETIME ONE 02/16/17 15:58 oxyCODONE 5 mg PO Q4H PRN 02/16/17 15:59 Acetaminophen [Tylenol] 650 mg PO Q4H PRN 02/18/17 09:00 Pneumococcal Polyvalent-23 Vac [Pneumovax 23] 0.5 ml IM .ONCE ONE - Plan Plan:: Assessment and plan - Closed left hip fracture - traumatic injury with resulting fracture. Status post surgical intervention 02/15. Clinically stable since surgery. 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 Echocardiogram showed mildly reduced left ventricular function. -intake and output monitoring -continue VIVIENNE inhibitor and beta jannette -Small dose of furosemide today -Reassess volume status tomorrow, I anticipate he will need a low dose maintenance diuretic -REJI stockings Accelerated hypertension - blood pressure control has been acceptable with medications as below -continue lisinopril and metoprolol -monitor blood pressures and adjust as needed Coronary artery disease - history of 5 vessel bypass approximately 10 years ago. No recent symptoms to suggest ischemic heart disease is active. -Management as above Maintenance issues - - DVT prophylaxis - twice daily aspirin - GI prophylaxis - not indicated - Nutrition - low sodium diet - De Guzman catheter - placed in the emergency room with hip fracture and for intake and output monitoring, removed today Disposition - anticipate discharge to the alf after the hospital stay Primary care physician - [facility] Miguel A Nielson M.D.
[2017-02-16] MEDS ORDERED: Furosemide 20 MG/2 ML VIAL IV ONE (16:15)
[2017-02-16] MEDS: Acetaminophen 325 MG Tab PO PRN (23:19)
[2017-02-17] MEDS: Acetaminophen 325 MG Tab PO PRN ×2 (08:20→15:07)
[2017-02-17] MEDS: traMADol 50 MG Tab PO PRN ×2 (08:31→15:08)
[2017-02-17] MEDS: Metoprolol Tartrate 25 MG Tab PO SCH (08:31)
[2017-02-17] MEDS: Aspirin 325 MG Tab.EC PO SCH (08:31)
[2017-02-17] MEDS: Lisinopril 20 MG Tab PO SCH (08:32)
[2017-02-17] MEDS: Nystatin Topical Powder 15 GM Bottle TOP SCH (08:33)
--- NOTE | 2017-02-17 09:16 | PCM.PN ---
- General Info Date of Service: 02/16/17 Functional Status: Reports: Pain Controlled, Tolerating Diet - Patient Data Vitals - Most Recent: Last Vital Signs Temp 35.7 C 02/17/17 06:51 Pulse 71 02/17/17 08:31 Resp 16 02/17/17 06:51 BP 120/62 02/17/17 08:32 Pulse Ox 93 L 02/17/17 06:51 Weight - Most Recent: 207 lb 14.334 oz I&O - Last 24 Hours: Intake & Output 02/16/17 02/17/17 02/17/17 22:59 06:59 14:59 Intake Total 620 400 Output Total 950 200 Balance -330 200 Lab Results Last 24 Hours: Laboratory Results - last 24 hr 02/17/17 02/17/17 Range/Units 05:11 05:11 WBC 8.0 (4.5-11.0) K/uL RBC 3.03 L (4.30-5.90) M/uL Hgb 9.0 L (12.0-15.0) g/dL Hct 26.9 L (40.0-54.0) % MCV 89 (80-98) fL MCH 30 (27-31) pg MCHC 34 (32-36) % Plt Count 199 (150-400) K/uL Sodium 137 L (140-148) mmol/L Potassium 3.5 L (3.6-5.2) mmol/L Chloride 102 (100-108) mmol/L Carbon Dioxide 34 H (21-32) mmol/L Anion Gap 4.5 L (5.0-14.0) mmol/L BUN 17 (7-18) mg/dL Creatinine 0.9 (0.8-1.3) mg/dL Est Cr Clr Drug Dosing 59.85 mL/min Estimated GFR (MDRD) > 60 (>60) Glucose 96 (74-106) mg/dL Calcium 7.7 L (8.5-10.1) mg/dL Med Orders - Current: Current Medications Acetaminophen (Tylenol) 650 mg PO Q4H PRN PRN Reason: Pain/Fever Last Admin: 02/17/17 08:20 Dose: 650 mg Al Hydroxide/Mg Hydroxide (Mag-Al Plus) 30 ml PO Q4H PRN PRN Reason: Constipation Aspirin (Ecotrin) 325 mg PO BID [facility] Last Admin: 02/17/17 08:31 Dose: 325 mg Bisacodyl (Dulcolax) 10 mg PO DAILY PRN PRN Reason: Constipation Diazepam (Valium) 5 mg IVPUSH Q6H PRN PRN Reason: Spasms Last Admin: 02/17/17 00:33 Dose: 5 mg Docusate Sodium (Colace) 100 mg PO BID PRN PRN Reason: Constipation Ketorolac Tromethamine (Toradol) 15 mg IVPUSH Q8H PRN PRN Reason: Pain Stop: 02/20/17 11:29 Last Admin: 02/16/17 14:12 Dose: 15 mg Lisinopril (Prinivil) 20 mg PO DAILY [facility] Last Admin: 02/17/17 08:32 Dose: 20 mg Magnesium Hydroxide (Milk Of Magnesia) 30 ml PO BID PRN PRN Reason: Constipation Metoprolol Tartrate (Lopressor) 12.5 mg PO BID [facility] Last Admin: 02/17/17 08:31 Dose: 12.5 mg Morphine Sulfate (Morphine) 2 - 4 mg IVPUSH Q2H PRN PRN Reason: Pain (severe 7-10) Last Admin: 02/15/17 13:00 Dose: 2 mg Nystatin (Nystop) 0 gm TOP BID [facility] Last Admin: 02/17/17 08:33 Dose: 1 applic Ondansetron HCl (Zofran Odt) 4 mg PO Q6H PRN PRN Reason: Nausea able to take PO Ondansetron HCl (Zofran) 4 mg IV Q6H PRN PRN Reason: Nausea/Vomiting Oxycodone HCl (Oxycodone) 5 mg PO Q4H PRN PRN Reason: Pain Last Admin: 02/16/17 23:20 Dose: 5 mg Pneumococcal Polyvalent Vaccine (Pneumovax 23) 0.5 ml IM .ONCE ONE Stop: 02/18/17 09:01 Polyethylene Glycol (Miralax) 17 gm PO DAILY PRN PRN Reason: Constipation Senna (Senna) 8.6 mg PO BID PRN PRN Reason: Constipation Senna/Docusate Sodium (Senna Plus) 1 tab PO BID PRN PRN Reason: Constipation Sodium Chloride (Saline Flush) 10 ml FLUSH DAILY [facility] Last Admin: 02/16/17 08:31 Dose: Not Given Tramadol HCl (Ultram) 100 mg PO Q6H PRN PRN Reason: Pain Last Admin: 02/17/17 08:31 Dose: 100 mg Zolpidem Tartrate (Ambien) 5 mg PO BEDTIME PRN PRN Reason: Sleep Discontinued Medications Acetaminophen (Tylenol) 650 mg PO Q4H PRN PRN Reason: Pain (Mild 1-3)/fever Last Admin: 02/14/17 13:24 Dose: 650 mg Bupivacaine HCl/Epinephrine Bitart (Marcaine 0.5%/Epinephrine 1:200,000) Confirm Administered Dose 50 ml .ROUTE .STK-MED ONE Stop: 02/15/17 08:52 Last Admin: 02/15/17 11:20 Dose: 20 ml Diphenhydramine HCl (Benadryl) 25 mg IVPUSH Q4H PRN PRN Reason: Itching Fentanyl (Sublimaze) Confirm Administered Dose 100 mcg .ROUTE .STK-MED ONE Stop: 02/15/17 09:11 Fentanyl (Sublimaze) 50 mcg IVPUSH ONETIME ONE Stop: 02/15/17 11:52 Last Admin: 02/15/17 11:57 Dose: 50 mcg Furosemide (Lasix) 60 mg IVPUSH ONETIME ONE Stop: 02/13/17 13:13 Last Admin: 02/13/17 15:06 Dose: 60 mg Furosemide (Lasix) 20 mg IV ONETIME ONE Stop: 02/16/17 16:16 Last Admin: 02/16/17 16:20 Dose: 20 mg Sodium Chloride (Normal Saline) 1,000 mls @ 100 mls/hr IV ASDIRECTED [facility] Last Admin: 02/13/17 15:06 Dose: 100 mls/hr Ceftriaxone Sodium 2 gm/ (Sodium Chloride) 50 mls @ 100 mls/hr IV Q24H [facility] Last Admin: 02/14/17 14:56 Dose: 100 mls/hr Sodium Chloride (Normal Saline) 300 mls @ 999 mls/hr IV .BOLUS ONE Stop: 02/15/17 07:18 Last Admin: 02/15/17 09:01 Dose: 999 mls/hr Cefazolin Sodium/Dextrose 2 gm (/ Premix) 50 mls @ 100 mls/hr IV ONETIME ONE Stop: 02/15/17 07:29 Last Admin: 02/15/17 09:02 Dose: 100 mls/hr Potassium Chloride 20 meq/Lidocaine HCl 2 ml/ Sodium Chloride 112 mls @ 56 mls/ hr IV Q2H [facility] Stop: 02/15/17 13:59 Last Admin: 02/15/17 14:32 Dose: 56 mls/hr Lactated Ringer's (Ringers, Lactated) 1,000 mls @ 100 mls/hr IV ASDIRECTED [facility] Last Admin: 02/16/17 01:47 Dose: 100 mls/hr Cefazolin Sodium 2 gm/ Sodium (Chloride) 50 mls @ 100 mls/hr IV Q8H [facility] Stop: 02/16/17 08:29 Last Admin: 02/16/17 08:28 Dose: 100 mls/hr Sodium Chloride (Normal Saline) 500 mls @ 500 mls/hr IV .BOLUS ONE Stop: 02/16/17 01:34 Last Admin: 02/16/17 00:45 Dose: 500 mls/hr Midazolam HCl (Versed 1 Mg/Ml) Confirm Administered Dose 2 mg .ROUTE .STK-MED ONE Stop: 02/15/17 09:11 Naloxone HCl (Narcan) 0.1 mg IVPUSH ONETIME PRN PRN Reason: Oversedation Stop: 02/15/17 11:30 Oxycodone HCl (Oxycodone) 5 - 10 mg PO Q4H PRN PRN Reason: Pain (moderate 4-6) Last Admin: 02/15/17 03:03 Dose: 10 mg Oxycodone/Acetaminophen (Percocet 325-5 Mg) 2 tab PO Q4H PRN PRN Reason: Pain Last Admin: 02/15/17 14:24 Dose: 2 tab Potassium Chloride (Klor-Con M20) 40 meq PO ONETIME ONE Stop: 02/13/17 17:31 Last Admin: 02/13/17 17:35 Dose: 40 meq Povidone Iodine (Betadine 10% Soln) Confirm Administered Dose 1 ml .ROUTE .STK- MED ONE Stop: 02/15/17 08:52 Last Admin: 02/15/17 11:15 Dose: 30 ml Propofol (Diprivan 20 Ml) Confirm Administered Dose 200 mg .ROUTE .STK-MED ONE Stop: 02/15/17 09:11 - Exam General: Alert, Oriented Extremities: Normal Inspection, No Pedal Edema, Normal Capillary Refill Skin: Warm, Dry, Intact Wound/Incisions: Healing Well, Dressing Dry and Intact Neurological: No New Focal Deficit Psy/Mental Status: Alert - Problem List & Annotations (1) Hip fracture, left SNOMED Code(s): 822790661 Code(s): S72.002A - FRACTURE OF UNSP PART OF NECK OF LEFT FEMUR, INIT Status: Acute Current Visit: Yes Qualifiers: Encounter type: initial encounter Fracture type: closed Qualified Code(s) : S72.002A - Fracture of unspecified part of neck of left femur, initial encounter for closed fracture - Problem List Review Problem List Initiated/Reviewed/Updated: Yes - My Orders Last 24 Hours: My Active Orders 02/16/17 09:00 Sodium Chloride 0.9% [Saline Flush] 10 ml FLUSH DAILY - Plan Plan:: Assessment and plan - Closed left hip fracture - traumatic injury with resulting fracture. Patient is status pod 1 and is doing well. Dressing is clean, dry, and intact. We will continue with pain management He will continue with PT/OT.
--- NOTE | 2017-02-17 09:17 | PCM.PN ---
- General Info Date of Service: 02/17/17 Functional Status: Reports: Pain Controlled, Tolerating Diet - Review of Systems General: Reports: No Symptoms - Patient Data Vitals - Most Recent: Last Vital Signs Temp 35.7 C 02/17/17 06:51 Pulse 71 02/17/17 08:31 Resp 16 02/17/17 06:51 BP 120/62 02/17/17 08:32 Pulse Ox 93 L 02/17/17 06:51 Weight - Most Recent: 207 lb 14.334 oz I&O - Last 24 Hours: Intake & Output 02/16/17 02/17/17 02/17/17 22:59 06:59 14:59 Intake Total 620 400 Output Total 950 200 Balance -330 200 Lab Results Last 24 Hours: Laboratory Results - last 24 hr 02/17/17 02/17/17 Range/Units 05:11 05:11 WBC 8.0 (4.5-11.0) K/uL RBC 3.03 L (4.30-5.90) M/uL Hgb 9.0 L (12.0-15.0) g/dL Hct 26.9 L (40.0-54.0) % MCV 89 (80-98) fL MCH 30 (27-31) pg MCHC 34 (32-36) % Plt Count 199 (150-400) K/uL Sodium 137 L (140-148) mmol/L Potassium 3.5 L (3.6-5.2) mmol/L Chloride 102 (100-108) mmol/L Carbon Dioxide 34 H (21-32) mmol/L Anion Gap 4.5 L (5.0-14.0) mmol/L BUN 17 (7-18) mg/dL Creatinine 0.9 (0.8-1.3) mg/dL Est Cr Clr Drug Dosing 59.85 mL/min Estimated GFR (MDRD) > 60 (>60) Glucose 96 (74-106) mg/dL Calcium 7.7 L (8.5-10.1) mg/dL Med Orders - Current: Current Medications Acetaminophen (Tylenol) 650 mg PO Q4H PRN PRN Reason: Pain/Fever Last Admin: 02/17/17 08:20 Dose: 650 mg Al Hydroxide/Mg Hydroxide (Mag-Al Plus) 30 ml PO Q4H PRN PRN Reason: Constipation Aspirin (Ecotrin) 325 mg PO BID [facility] Last Admin: 02/17/17 08:31 Dose: 325 mg Bisacodyl (Dulcolax) 10 mg PO DAILY PRN PRN Reason: Constipation Diazepam (Valium) 5 mg IVPUSH Q6H PRN PRN Reason: Spasms Last Admin: 02/17/17 00:33 Dose: 5 mg Docusate Sodium (Colace) 100 mg PO BID PRN PRN Reason: Constipation Ketorolac Tromethamine (Toradol) 15 mg IVPUSH Q8H PRN PRN Reason: Pain Stop: 02/20/17 11:29 Last Admin: 02/16/17 14:12 Dose: 15 mg Lisinopril (Prinivil) 20 mg PO DAILY [facility] Last Admin: 02/17/17 08:32 Dose: 20 mg Magnesium Hydroxide (Milk Of Magnesia) 30 ml PO BID PRN PRN Reason: Constipation Metoprolol Tartrate (Lopressor) 12.5 mg PO BID [facility] Last Admin: 02/17/17 08:31 Dose: 12.5 mg Morphine Sulfate (Morphine) 2 - 4 mg IVPUSH Q2H PRN PRN Reason: Pain (severe 7-10) Last Admin: 02/15/17 13:00 Dose: 2 mg Nystatin (Nystop) 0 gm TOP BID [facility] Last Admin: 02/17/17 08:33 Dose: 1 applic Ondansetron HCl (Zofran Odt) 4 mg PO Q6H PRN PRN Reason: Nausea able to take PO Ondansetron HCl (Zofran) 4 mg IV Q6H PRN PRN Reason: Nausea/Vomiting Oxycodone HCl (Oxycodone) 5 mg PO Q4H PRN PRN Reason: Pain Last Admin: 02/16/17 23:20 Dose: 5 mg Pneumococcal Polyvalent Vaccine (Pneumovax 23) 0.5 ml IM .ONCE ONE Stop: 02/18/17 09:01 Polyethylene Glycol (Miralax) 17 gm PO DAILY PRN PRN Reason: Constipation Senna (Senna) 8.6 mg PO BID PRN PRN Reason: Constipation Senna/Docusate Sodium (Senna Plus) 1 tab PO BID PRN PRN Reason: Constipation Sodium Chloride (Saline Flush) 10 ml FLUSH DAILY [facility] Last Admin: 02/16/17 08:31 Dose: Not Given Tramadol HCl (Ultram) 100 mg PO Q6H PRN PRN Reason: Pain Last Admin: 02/17/17 08:31 Dose: 100 mg Zolpidem Tartrate (Ambien) 5 mg PO BEDTIME PRN PRN Reason: Sleep Discontinued Medications Acetaminophen (Tylenol) 650 mg PO Q4H PRN PRN Reason: Pain (Mild 1-3)/fever Last Admin: 02/14/17 13:24 Dose: 650 mg Bupivacaine HCl/Epinephrine Bitart (Marcaine 0.5%/Epinephrine 1:200,000) Confirm Administered Dose 50 ml .ROUTE .STK-MED ONE Stop: 02/15/17 08:52 Last Admin: 02/15/17 11:20 Dose: 20 ml Diphenhydramine HCl (Benadryl) 25 mg IVPUSH Q4H PRN PRN Reason: Itching Fentanyl (Sublimaze) Confirm Administered Dose 100 mcg .ROUTE .STK-MED ONE Stop: 02/15/17 09:11 Fentanyl (Sublimaze) 50 mcg IVPUSH ONETIME ONE Stop: 02/15/17 11:52 Last Admin: 02/15/17 11:57 Dose: 50 mcg Furosemide (Lasix) 60 mg IVPUSH ONETIME ONE Stop: 02/13/17 13:13 Last Admin: 02/13/17 15:06 Dose: 60 mg Furosemide (Lasix) 20 mg IV ONETIME ONE Stop: 02/16/17 16:16 Last Admin: 02/16/17 16:20 Dose: 20 mg Sodium Chloride (Normal Saline) 1,000 mls @ 100 mls/hr IV ASDIRECTED [facility] Last Admin: 02/13/17 15:06 Dose: 100 mls/hr Ceftriaxone Sodium 2 gm/ (Sodium Chloride) 50 mls @ 100 mls/hr IV Q24H [facility] Last Admin: 02/14/17 14:56 Dose: 100 mls/hr Sodium Chloride (Normal Saline) 300 mls @ 999 mls/hr IV .BOLUS ONE Stop: 02/15/17 07:18 Last Admin: 02/15/17 09:01 Dose: 999 mls/hr Cefazolin Sodium/Dextrose 2 gm (/ Premix) 50 mls @ 100 mls/hr IV ONETIME ONE Stop: 02/15/17 07:29 Last Admin: 02/15/17 09:02 Dose: 100 mls/hr Potassium Chloride 20 meq/Lidocaine HCl 2 ml/ Sodium Chloride 112 mls @ 56 mls/ hr IV Q2H [facility] Stop: 02/15/17 13:59 Last Admin: 02/15/17 14:32 Dose: 56 mls/hr Lactated Ringer's (Ringers, Lactated) 1,000 mls @ 100 mls/hr IV ASDIRECTED [facility] Last Admin: 02/16/17 01:47 Dose: 100 mls/hr Cefazolin Sodium 2 gm/ Sodium (Chloride) 50 mls @ 100 mls/hr IV Q8H [facility] Stop: 02/16/17 08:29 Last Admin: 02/16/17 08:28 Dose: 100 mls/hr Sodium Chloride (Normal Saline) 500 mls @ 500 mls/hr IV .BOLUS ONE Stop: 02/16/17 01:34 Last Admin: 02/16/17 00:45 Dose: 500 mls/hr Midazolam HCl (Versed 1 Mg/Ml) Confirm Administered Dose 2 mg .ROUTE .STK-MED ONE Stop: 02/15/17 09:11 Naloxone HCl (Narcan) 0.1 mg IVPUSH ONETIME PRN PRN Reason: Oversedation Stop: 02/15/17 11:30 Oxycodone HCl (Oxycodone) 5 - 10 mg PO Q4H PRN PRN Reason: Pain (moderate 4-6) Last Admin: 02/15/17 03:03 Dose: 10 mg Oxycodone/Acetaminophen (Percocet 325-5 Mg) 2 tab PO Q4H PRN PRN Reason: Pain Last Admin: 02/15/17 14:24 Dose: 2 tab Potassium Chloride (Klor-Con M20) 40 meq PO ONETIME ONE Stop: 02/13/17 17:31 Last Admin: 02/13/17 17:35 Dose: 40 meq Povidone Iodine (Betadine 10% Soln) Confirm Administered Dose 1 ml .ROUTE .STK- MED ONE Stop: 02/15/17 08:52 Last Admin: 02/15/17 11:15 Dose: 30 ml Propofol (Diprivan 20 Ml) Confirm Administered Dose 200 mg .ROUTE .STK-MED ONE Stop: 02/15/17 09:11 - Exam General: Alert, Oriented Extremities: Normal Inspection, No Pedal Edema, Normal Capillary Refill Skin: Warm, Dry, Intact Wound/Incisions: Healing Well, Dressing Dry and Intact, No Drainage Neurological: No New Focal Deficit Psy/Mental Status: Alert - Problem List & Annotations (1) Hip fracture, left SNOMED Code(s): 710702011 Code(s): S72.002A - FRACTURE OF UNSP PART OF NECK OF LEFT FEMUR, INIT Status: Acute Current Visit: Yes Qualifiers: Encounter type: initial encounter Fracture type: closed Qualified Code(s) : S72.002A - Fracture of unspecified part of neck of left femur, initial encounter for closed fracture - Problem List Review Problem List Initiated/Reviewed/Updated: Yes - My Orders Last 24 Hours: My Active Orders 02/16/17 09:00 Sodium Chloride 0.9% [Saline Flush] 10 ml FLUSH DAILY - Plan Plan:: Assessment and plan - Closed left hip fracture - traumatic injury with resulting fracture. Patient is status pod 2 and is doing well. Dressing is clean, dry, and intact. We will continue with pain management He will continue with PT/OT.
[2017-02-17 10:32] VITALS: BP 119/57
[2017-02-17] MEDS: Sodium Chloride 0.9% 10 ML Syringe FLUSH SCH (11:50)
--- NOTE | 2017-02-17 12:25 | PCM.DCSUM1 ---
Discharge Summary - Hospital Course Brief History: 87-year-old male with history of coronary artery disease who presented after a fall and was admitted for management of a left hip fracture. - Discharge Data Discharge Date: 02/17/17 Discharge Disposition: DC/Tfer to SNF 03 Condition: Fair - Discharge Diagnosis/Problem(s) (1) Hip fracture, left SNOMED Code(s): 351223709 ICD Code: S72.002A - FRACTURE OF UNSP PART OF NECK OF LEFT FEMUR, INIT Status: Acute Qualifiers: Encounter type: initial encounter Fracture type: closed Qualified Code(s) : S72.002A - Fracture of unspecified part of neck of left femur, initial encounter for closed fracture (2) CHF (congestive heart failure) SNOMED Code(s): 92021881 ICD Code: I50.9 - HEART FAILURE, UNSPECIFIED Status: Acute Qualifiers: Congestive heart failure type: combined Congestive heart failure chronicity : chronic Qualified Code(s): I50.42 - Chronic combined systolic (congestive) and diastolic (congestive) heart failure (3) Hypokalemia SNOMED Code(s): 25097268 ICD Code: E87.6 - HYPOKALEMIA Status: Acute - Patient Summary/Data Operative Procedure(s) Performed: Left hip cephalomedulary nailing with Dr Archibald Consults: Consultations 02/15/17 11:29 OT Evaluation and Treatment [CONS] Routine Please Evaluate and Treat. OT Reason for Consult: Strengthening This query below is only for informational purposes and is not editable. Admission Diagnosis/Problem: Hip fracture requiring operative repair PT Evaluation and Treatment [CONS] Routine Please Evaluate and Treat. PT Reason for Consult: Strengthening This query below is only for informational purposes and is not editable. Admission Diagnosis/Problem: Hip fracture requiring operative repair Hospital Course: Axel presented to the emergency room with left hip pain after he fell while shopping for books. He was evaluated in the emergency room and there was evidence for a left hip fracture with a sub-trochanteric fracture on the left. He was also noted to be significantly hypertensive and there was evidence for congestive heart failure with mild pulmonary edema and significant lower extremity edema. He was given a dose of furosemide and admitted to the hospital for a medical tuneup prior to surgical intervention. An echocardiogram was completed in the emergency room and revealed mildly reduced left ventricular function as well as some mild valvular abnormalities but overall showed good left ventricular function. For his hypertension he was started on a low dose of metoprolol as well as lisinopril. After his initial dose of furosemide he had an excellent diuresis with resolution of his lower extremity edema. Pulmonary edema also resolved and he did not require supplemental oxygen after his initial dose of furosemide. The day after admission we did not have to further titrate medications and had good blood pressure control. On the second day after admission he had an uneventful cephalo-medullary nailing of his left hip fracture. Postoperatively he had some mild difficulty with low urine output and received fluid challenges. Otherwise he has been stable with well- controlled blood pressures. He did develop some mild edema and received 1 additional dose of furosemide postoperatively but has not required a maintenance dosing. he has done well with physical therapy and his vital signs have been stable. I believe he is safe for outpatient management. He would benefit from [facility]acute [facility] a [facility] with his home situation and living alone. I think that he will improve fairly quickly with subacute rehabilitation. He is going home with lisinopril and metoprolol to help manage his blood pressure and he should be good medications with his mild congestive heart failure and history of coronary artery disease. He will be on a twice daily aspirin for the next month for DVT prophylaxis. I placed referrals for both physical and occupational therapy. He'll be [facility] today. - Patient Instructions Diet: Heart Healthy Diet Activity: As Tolerated Driving: Do Not Drive Showering/Bathing: May Shower Notify Provider of: Fever, Increased Pain, Nausea and/or Vomiting Other/Special Instructions: 1. You were in the hospital for management of a left hip fracture that resulted after a fall. Your hip has been surgically repaired by Dr. Archibald. You can bear weight on your leg as tolerated. I recommend scheduled Tylenol as well as as needed oxycodone for pain control. 2. At the time of admission you had a significant elevation of your blood pressure. This has improved with the use of lisinopril and metoprolol and I recommend that we continue these after hospital discharge. There was also some evidence for congestive heart failure. This has responded very well to a single dose of furosemide. At this point I don't believe that you need a maintenance diuretic. Your echocardiogram showed that your ejection fraction is mildly reduced. 3. CODE STATUS - DO NOT RESUSCITATE and DO NOT INTUBATE. 4. Heart healthy diet. 5. Referral to physical therapy and occupational therapy for strengthening. 6. Please seek medical attention if you develops fever greater than 101, have worsening of your hip pain or you develop sudden shortness of breath or chest pain. - Discharge Plan Prescriptions/Med Rec: Acetaminophen 1,000 mg PO TID #90 tablet Aspirin [Ecotrin] 325 mg PO BID #60 tab.ec Carbamide Peroxide [Debrox 6.5% Otic Soln] 4 drop EARLF DAILY #1 bottle Docusate Sodium/Sennosides [Senna Plus] 1 tab PO BID PRN #60 tablet PRN Reason: Constipation Lisinopril [Prinivil] 20 mg PO DAILY #30 tablet Melatonin 5 mg PO BEDTIME #30 tablet Metoprolol Succinate 25 mg PO DAILY #30 tab.er.24h oxyCODONE 5 mg PO Q4H PRN #60 tablet PRN Reason: Pain Home Medications: Home Meds Acetaminophen 1,000 mg PO TID #90 tablet 02/17/17 [Rx] Aspirin [Ecotrin] 325 mg PO BID #60 tab.ec 02/17/17 [Rx] Carbamide Peroxide [Debrox 6.5% Otic Soln] 4 drop EARLF DAILY #1 bottle [Rx] Docusate Sodium/Sennosides [Senna Plus] 1 tab PO BID PRN #60 tablet 02/17/17 [Rx ] Lisinopril [Prinivil] 20 mg PO DAILY #30 tablet 02/17/17 [Rx] Melatonin 5 mg PO BEDTIME #30 tablet 02/17/17 [Rx] Metoprolol Succinate 25 mg PO DAILY #30 tab.er.24h 02/17/17 [Rx] oxyCODONE 5 mg PO Q4H PRN #60 tablet 02/17/17 [Rx] Patient Handouts: Open Reduction and Internal Fixation for Hip Fracture, Care After, Lisinopril tablets, Metoprolol extended-release tablets Forms: ED Department Discharge Referrals: PCP,None [Primary Care Provider] - (f/u with your regular doctor after you are released from the [facility]) - Discharge Summary/Plan Comment DC Time >30 min.: Yes (45 - new penitentiary discharge) - Patient Data Vitals - Most Recent: Last Vital Signs Temp 35.6 C 02/17/17 10:30 Pulse 71 02/17/17 08:31 Resp 16 02/17/17 10:30 BP 119/57 L 02/17/17 10:30 Pulse Ox 97 02/17/17 10:30 Weight - Most Recent: 94.3 kg I&O - Last 24 hours: Intake & Output 02/16/17 02/17/17 02/17/17 22:59 06:59 14:59 Intake Total 620 400 360 Output Total 950 200 500 Balance -330 200 -140 Lab Results - Last 24 hrs: Laboratory Results - last 24 hr 02/17/17 02/17/17 Range/Units 05:11 05:11 WBC 8.0 (4.5-11.0) K/uL RBC 3.03 L (4.30-5.90) M/uL Hgb 9.0 L (12.0-15.0) g/dL Hct 26.9 L (40.0-54.0) % MCV 89 (80-98) fL MCH 30 (27-31) pg MCHC 34 (32-36) % Plt Count 199 (150-400) K/uL Sodium 137 L (140-148) mmol/L Potassium 3.5 L (3.6-5.2) mmol/L Chloride 102 (100-108) mmol/L Carbon Dioxide 34 H (21-32) mmol/L Anion Gap 4.5 L (5.0-14.0) mmol/L BUN 17 (7-18) mg/dL Creatinine 0.9 (0.8-1.3) mg/dL Est Cr Clr Drug Dosing 59.85 mL/min Estimated GFR (MDRD) > 60 (>60) Glucose 96 (74-106) mg/dL Calcium 7.7 L (8.5-10.1) mg/dL Med Orders - Current: Current Medications Acetaminophen (Tylenol) 650 mg PO Q4H PRN PRN Reason: Pain/Fever Last Admin: 02/17/17 08:20 Dose: 650 mg Al Hydroxide/Mg Hydroxide (Mag-Al Plus) 30 ml PO Q4H PRN PRN Reason: Constipation Aspirin (Ecotrin) 325 mg PO BID CECY Last Admin: 02/17/17 08:31 Dose: 325 mg Bisacodyl (Dulcolax) 10 mg PO DAILY PRN PRN Reason: Constipation Diazepam (Valium) 5 mg IVPUSH Q6H PRN PRN Reason: Spasms Last Admin: 02/17/17 00:33 Dose: 5 mg Docusate Sodium (Colace) 100 mg PO BID PRN PRN Reason: Constipation Ketorolac Tromethamine (Toradol) 15 mg IVPUSH Q8H PRN PRN Reason: Pain Stop: 02/20/17 11:29 Last Admin: 02/16/17 14:12 Dose: 15 mg Lisinopril (Prinivil) 20 mg PO DAILY [facility] Last Admin: 02/17/17 08:32 Dose: 20 mg Magnesium Hydroxide (Milk Of Magnesia) 30 ml PO BID PRN PRN Reason: Constipation Metoprolol Tartrate (Lopressor) 12.5 mg PO BID [facility] Last Admin: 02/17/17 08:31 Dose: 12.5 mg Morphine Sulfate (Morphine) 2 - 4 mg IVPUSH Q2H PRN PRN Reason: Pain (severe 7-10) Last Admin: 02/15/17 13:00 Dose: 2 mg Nystatin (Nystop) 0 gm TOP BID [facility] Last Admin: 02/17/17 08:33 Dose: 1 applic Ondansetron HCl (Zofran Odt) 4 mg PO Q6H PRN PRN Reason: Nausea able to take PO Ondansetron HCl (Zofran) 4 mg IV Q6H PRN PRN Reason: Nausea/Vomiting Oxycodone HCl (Oxycodone) 5 mg PO Q4H PRN PRN Reason: Pain Last Admin: 02/16/17 23:20 Dose: 5 mg Pneumococcal Polyvalent Vaccine (Pneumovax 23) 0.5 ml IM .ONCE ONE Stop: 02/18/17 09:01 Polyethylene Glycol (Miralax) 17 gm PO DAILY PRN PRN Reason: Constipation Senna (Senna) 8.6 mg PO BID PRN PRN Reason: Constipation Senna/Docusate Sodium (Senna Plus) 1 tab PO BID PRN PRN Reason: Constipation Sodium Chloride (Saline Flush) 10 ml FLUSH DAILY [facility] Last Admin: 02/17/17 11:50 Dose: 10 ml Tramadol HCl (Ultram) 100 mg PO Q6H PRN PRN Reason: Pain Last Admin: 02/17/17 08:31 Dose: 100 mg Discontinued Medications Acetaminophen (Tylenol) 650 mg PO Q4H PRN PRN Reason: Pain (Mild 1-3)/fever Last Admin: 02/14/17 13:24 Dose: 650 mg Bupivacaine HCl/Epinephrine Bitart (Marcaine 0.5%/Epinephrine 1:200,000) Confirm Administered Dose 50 ml .ROUTE .STK-MED ONE Stop: 02/15/17 08:52 Last Admin: 02/15/17 11:20 Dose: 20 ml Diphenhydramine HCl (Benadryl) 25 mg IVPUSH Q4H PRN PRN Reason: Itching Fentanyl (Sublimaze) Confirm Administered Dose 100 mcg .ROUTE .STK-MED ONE Stop: 02/15/17 09:11 Fentanyl (Sublimaze) 50 mcg IVPUSH ONETIME ONE Stop: 02/15/17 11:52 Last Admin: 02/15/17 11:57 Dose: 50 mcg Furosemide (Lasix) 60 mg IVPUSH ONETIME ONE Stop: 02/13/17 13:13 Last Admin: 02/13/17 15:06 Dose: 60 mg Furosemide (Lasix) 20 mg IV ONETIME ONE Stop: 02/16/17 16:16 Last Admin: 02/16/17 16:20 Dose: 20 mg Sodium Chloride (Normal Saline) 1,000 mls @ 100 mls/hr IV ASDIRECTED [facility] Last Admin: 02/13/17 15:06 Dose: 100 mls/hr Ceftriaxone Sodium 2 gm/ (Sodium Chloride) 50 mls @ 100 mls/hr IV Q24H [facility] Last Admin: 02/14/17 14:56 Dose: 100 mls/hr Sodium Chloride (Normal Saline) 300 mls @ 999 mls/hr IV .BOLUS ONE Stop: 02/15/17 07:18 Last Admin: 02/15/17 09:01 Dose: 999 mls/hr Cefazolin Sodium/Dextrose 2 gm (/ Premix) 50 mls @ 100 mls/hr IV ONETIME ONE Stop: 02/15/17 07:29 Last Admin: 02/15/17 09:02 Dose: 100 mls/hr Potassium Chloride 20 meq/Lidocaine HCl 2 ml/ Sodium Chloride 112 mls @ 56 mls/ hr IV Q2H [facility] Stop: 02/15/17 13:59 Last Admin: 02/15/17 14:32 Dose: 56 mls/hr Lactated Ringer's (Ringers, Lactated) 1,000 mls @ 100 mls/hr IV ASDIRECTED [facility] Last Admin: 02/16/17 01:47 Dose: 100 mls/hr Cefazolin Sodium 2 gm/ Sodium (Chloride) 50 mls @ 100 mls/hr IV Q8H [facility] Stop: 02/16/17 08:29 Last Admin: 02/16/17 08:28 Dose: 100 mls/hr Sodium Chloride (Normal Saline) 500 mls @ 500 mls/hr IV .BOLUS ONE Stop: 02/16/17 01:34 Last Admin: 02/16/17 00:45 Dose: 500 mls/hr Midazolam HCl (Versed 1 Mg/Ml) Confirm Administered Dose 2 mg .ROUTE .STK-MED ONE Stop: 02/15/17 09:11 Naloxone HCl (Narcan) 0.1 mg IVPUSH ONETIME PRN PRN Reason: Oversedation Stop: 02/15/17 11:30 Oxycodone HCl (Oxycodone) 5 - 10 mg PO Q4H PRN PRN Reason: Pain (moderate 4-6) Last Admin: 02/15/17 03:03 Dose: 10 mg Oxycodone/Acetaminophen (Percocet 325-5 Mg) 2 tab PO Q4H PRN PRN Reason: Pain Last Admin: 02/15/17 14:24 Dose: 2 tab Potassium Chloride (Klor-Con M20) 40 meq PO ONETIME ONE Stop: 02/13/17 17:31 Last Admin: 02/13/17 17:35 Dose: 40 meq Povidone Iodine (Betadine 10% Soln) Confirm Administered Dose 1 ml .ROUTE .STK- MED ONE Stop: 02/15/17 08:52 Last Admin: 02/15/17 11:15 Dose: 30 ml Propofol (Diprivan 20 Ml) Confirm Administered Dose 200 mg .ROUTE .STK-MED ONE Stop: 02/15/17 09:11 Zolpidem Tartrate (Ambien) 5 mg PO BEDTIME PRN PRN Reason: Sleep *Q Meaningful Use (DIS) - VTE *Q VTE Criteria *Q: VTE Pharmacological Contraindications *Q: Patient Scheduled Surgery - Stroke *Q Stroke Criteria *Q: - AMI *Q AMI Criteria *Q:
[2017-02-18] MEDS ORDERED: Pneumococcal Polyvalent-23 Vaccine 0.5 ML SDV IM ONE (09:00)
== END 2017-02-17 15:40 | DRG 481 ==
LOC: JP.ED 11:40 → JP.MS 16:07
PROVIDERS: ADMIT Internal Medicine; ATTEND Internal Medicine
PROC: 0QS706Z Reposition Left Upper Femur with Intramedullary Internal Fixation Device, Open Approach (ICD-10-PCS; principal; 2017-02-13)
DX: S72.145A Nondisplaced intertrochanteric fracture of left femur, initial encounter for closed fracture (principal); I50.42 Chronic combined systolic (congestive) and diastolic (congestive) heart failure; E87.6 Hypokalemia; W01.0XXA Fall on same level from slipping, tripping and stumbling without subsequent striking against object, initial encounter; Y92.512 Supermarket, store or market as the place of occurrence of the external cause; I25.10 Atherosclerotic heart disease of native coronary artery without angina pectoris; Z95.1 Presence of aortocoronary bypass graft; I11.0 Hypertensive heart disease with heart failure; R35.0 Frequency of micturition; Z66 Do not resuscitate
CPT/HCPCS: 36415; 51702; 71010 ×2; 73502 ×2; 80053; 81001; 83880; 85025; 87086; 93005; 93010; 93306; 96361; 96365; 96375; 99285; J0696; J1940; J7040; J7050; 76000; 80048; 85027; 94762; 97110-GP; 97162-GP; 97165-GO; 97530-GP; 99284; A9270-GY; C1713; J0690; J1885; J2250; J2270; J2704; J3010; J3360; J3480; J7030; J7120

== ENCOUNTER 2017-02-28 11:56 | Inpatient (IN) | payer MEDICARE ==
[2017-02-28] MEDS ORDERED: Naloxone 0.4 MG/ML SDV IVPUSH ONE (12:36)
[2017-02-28] MEDS ORDERED: Furosemide 40 MG/4 ML VIAL IVPUSH ONE ×2 (12:46→18:56)
--- NOTE | 2017-02-28 12:52 | EDM.PDOC ---
ED HPI GENERAL MEDICAL PROBLEM - General Chief Complaint: General Stated Complaint: SOB VIA AMBULANCE Time Seen by Provider: 02/28/17 12:47 Source of Information: Reports: Patient, EMS Notes Reviewed, [facility] Records History Limitations: Reports: No Limitations - History of Present Illness INITIAL COMMENTS - FREE TEXT/NARRATIVE: pt had become increasingly obtunded today. He has gained 7 lbs. He has alot of edema in both legs. He is on oxycodone/ Pt was not responding when he left the shelter. Onset: Today, Gradual Duration: Hour(s): Associated Symptoms: Reports: Cough, Shortness of Breath, Other ( increased leg edema. ) - Related Data Allergies Allergy/AdvReac Type Severity Reaction Status Date / Time No Known Allergies Allergy Verified 02/13/17 12:21 Home Meds: Home Meds Acetaminophen 1,000 mg PO TID #90 tablet 02/17/17 [Rx] Aspirin [Ecotrin] 325 mg PO BID #60 tab.ec 02/17/17 [Rx] Carbamide Peroxide [Debrox 6.5% Otic Soln] 4 drop EARLF DAILY #1 bottle [Rx] Docusate Sodium/Sennosides [Senna Plus] 1 tab PO BID PRN #60 tablet 02/17/17 [Rx ] Lisinopril [Prinivil] 20 mg PO DAILY #30 tablet 02/17/17 [Rx] Melatonin 5 mg PO BEDTIME #30 tablet 02/17/17 [Rx] Metoprolol Succinate 25 mg PO DAILY #30 tab.er.24h 02/17/17 [Rx] oxyCODONE 5 mg PO Q4H PRN #60 tablet 02/17/17 [Rx] Past Medical History HEENT History: Reports: Hard of Hearing Cardiovascular History: Reports: Bypass, Heart Failure, Hypertension Musculoskeletal History: Reports: Fracture Dermatologic History: Reports: Other (See Below) Other Dermatologic History: 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 - Infectious Disease History Infectious Disease History: Reports: Chicken Pox, Measles, Mumps - Past Surgical History HEENT Surgical History: Reports: Cataract Surgery Cardiovascular Surgical History: Reports: Coronary Artery Bypass Musculoskeletal Surgical History: Reports: Joint Replacement Dermatological Surgical History: Reports: None Social & Family History - Tobacco Use Smoking Status *Q: Never Smoker Second Hand Smoke Exposure: No - Caffeine Use Caffeine Use: Reports: Soda - Recreational Drug Use Recreational Drug Use: No ED ROS GENERAL - Review of Systems Review Of Systems: See Below Constitutional: Reports: No Symptoms HEENT: Reports: No Symptoms Respiratory: Reports: Shortness of Breath Cardiovascular: Reports: No Symptoms Endocrine: Reports: No Symptoms GI/Abdominal: Reports: No Symptoms : Reports: No Symptoms Musculoskeletal: Reports: No Symptoms Skin: Reports: No Symptoms ED EXAM, GENERAL - Physical Exam Exam: See Below Free Text/Narrative:: pt had become increasedly less reponsive. He seemed sob and his o2 sats were down. he has gained 7 lbs in the last few days. Exam Limited By: Altered Mental Status General Appearance: Alert, Obtunded, Mild Distress Ears: Normal TMs Nose: Normal Inspection Throat/Mouth: Normal Inspection Head: Atraumatic Neck: Normal Inspection Respiratory/Chest: Decreased Breath Sounds Cardiovascular: Regular Rate, Rhythm GI/Abdominal: Soft, Non-Tender (Male) Exam: Other ( bladder was markedly distended above the umbilus) Rectal (Males) Exam: Deferred Back Exam: Normal Inspection Extremities: Pedal Edema, Other (pt has marked bilateral edema. He has an incision on the left where he had his hip pinned. ) Psychiatric: Other (not responding well) Skin Exam: Pallor Course - Vital Signs Last Recorded V/S: Last Vital Signs Temp 36.5 C 02/28/17 12:21 Pulse 81 02/28/17 12:21 Resp 18 02/28/17 12:21 BP 151/78 H 02/28/17 12:59 Pulse Ox 98 02/28/17 12:21 - Orders/Labs/Meds Orders: Active Orders 24 hr Category Date Time Status EKG Documentation Completion [RC] ASDIRECTED Care 02/28/17 12:04 Active Polk Catheter Insertion [Insert Urinary Catheter] [OM. Care 02/28/17 12:15 Ordered PC] Q24H Urinary Catheter Assessment [RC] ASDIRECTED Care 02/28/17 12:05 Active Chest 1V Frontal [CR] Stat Exams 02/28/17 12:20 Ordered PATIENT RETYPE [BBK] Stat Lab 02/28/17 12:22 Results RED BLOOD CELLS LP [BBK] Stat Lab 02/28/17 12:22 Results TYPE AND SCREEN [BBK] Stat Lab 02/28/17 12:22 Results EKG 12 Lead [EK] Routine Ther 02/28/17 12:04 Ordered Labs: Laboratory Tests 02/28/17 02/28/17 02/28/17 Range/Units 12:03 12:04 12:04 WBC 12.6 H (4.5-11.0) K/uL RBC 2.16 L (4.30-5.90) M/uL Hgb 6.3 L* D (12.0-15.0) g/dL Hct 20.7 L (40.0-54.0) % MCV 96 (80-98) fL MCH 29 (27-31) pg MCHC 30 L (32-36) % Plt Count 557 H (150-400) K/uL Neut % (Auto) 85 H (36-66) % Lymph % (Auto) 10 L (24-44) % [place] % (Auto) 5 (2-6) % Eos % (Auto) 0 L (2-4) % Baso % (Auto) 0 (0-1) % Puncture Site Lt brachial ABG pH 7.407 (7.350-7.450) ABG pCO2 51.8 H (35.0-42.0) mmHg ABG pO2 110.0 H (75.0-100.0) mmHg ABG HCO3 32.0 H (22.0-26.0) mmol/L ABG Total CO2 31.1 H (23.0-27.0) mmol/L ABG O2 Saturation 98.7 H (95.0-98.0) % ABG O2 Content 8.6 L (15.0-23.0) %vol ABG Base Excess 7.1 mm/L ABG Hemoglobin 6.3 L (13.5-18.0) g/dL ABG Oxyhemoglobin 94.1 % ABG Carboxyhemoglobin 3.9 H (0.0-1.6) % ABG Methemoglobin 0.8 % Anastacio Test Not performed O2 Delivery Device Nasal cannula Oxygen Flow Rate 2 L Sodium (140-148) mmol/L Potassium (3.6-5.2) mmol/L Chloride (100-108) mmol/L Carbon Dioxide (21-32) mmol/L Anion Gap (5.0-14.0) mmol/L BUN (7-18) mg/dL Creatinine (0.8-1.3) mg/dL Est Cr Clr Drug Dosing mL/min Estimated GFR (MDRD) (>60) Glucose (74-106) mg/dL Calcium (8.5-10.1) mg/dL Total Bilirubin (0.2-1.0) mg/dL AST (15-37) U/L ALT (12-78) U/L Alkaline Phosphatase (46-116) U/L Troponin I 0.046 (0.000-0.056) ng/mL [id number]-[id number] Pept (5-450) pg/mL Total Protein (6.4-8.2) g/dL Albumin (3.4-5.0) g/dL Globulin (2.3-3.5) g/dL Albumin/Globulin Ratio (1.2-2.2) Urine Color Urine Appearance Urine pH (4.5-8.0) Ur Specific [place] (1.008-1.030) Urine Protein (NEGATIVE) mg/dL Urine Glucose (UA) (NEGATIVE) mg/dL Urine Ketones (NEGATIVE) mg/dL Urine Occult Blood (NEGATIVE) Urine Nitrite (NEGAITVE) Urine Bilirubin (NEGATIVE) Urine Urobilinogen (NORMAL) mg/dL Ur Leukocyte Esterase (NEGATIVE) Urine RBC (0-5) Urine WBC (0-5) Ur Epithelial Cells Amorphous Sediment Urine Bacteria Urine Mucus Blood Type Gel Antibody Screen Crossmatch 02/28/17 02/28/17 02/28/17 Range/Units 12:04 12:21 12:22 WBC (4.5-11.0) K/uL RBC (4.30-5.90) M/uL Hgb (12.0-15.0) g/dL Hct (40.0-54.0) % MCV (80-98) fL MCH (27-31) pg MCHC (32-36) % Plt Count (150-400) K/uL Neut % (Auto) (36-66) % Lymph % (Auto) (24-44) % [place] % (Auto) (2-6) % Eos % (Auto) (2-4) % Baso % (Auto) (0-1) % Puncture Site ABG pH (7.350-7.450) ABG pCO2 (35.0-42.0) mmHg ABG pO2 (75.0-100.0) mmHg ABG HCO3 (22.0-26.0) mmol/L ABG Total CO2 (23.0-27.0) mmol/L ABG O2 Saturation (95.0-98.0) % ABG O2 Content (15.0-23.0) %vol ABG Base Excess mm/L ABG Hemoglobin (13.5-18.0) g/dL ABG Oxyhemoglobin % ABG Carboxyhemoglobin (0.0-1.6) % ABG Methemoglobin % Anastacio Test O2 Delivery Device Oxygen Flow Rate L Sodium 144 (140-148) mmol/L Potassium 3.9 (3.6-5.2) mmol/L Chloride 108 (100-108) mmol/L Carbon Dioxide 36 H (21-32) mmol/L Anion Gap 3.9 L (5.0-14.0) mmol/L BUN 53 H D (7-18) mg/dL Creatinine 0.9 (0.8-1.3) mg/dL Est Cr Clr Drug Dosing 59.71 mL/min Estimated GFR (MDRD) > 60 (>60) Glucose 118 H (74-106) mg/dL Calcium 8.0 L (8.5-10.1) mg/dL Total Bilirubin 0.4 (0.2-1.0) mg/dL AST 15 (15-37) U/L ALT 12 (12-78) U/L Alkaline Phosphatase 82 (46-116) U/L Troponin I (0.000-0.056) ng/mL Ynm-R-Glyovbkwpwr Pept (5-450) pg/mL Total Protein 6.0 L (6.4-8.2) g/dL Albumin 2.2 L (3.4-5.0) g/dL Globulin 3.8 H (2.3-3.5) g/dL Albumin/Globulin Ratio 0.6 L (1.2-2.2) Urine Color Yellow Urine Appearance Clear Urine pH 6.0 (4.5-8.0) Ur Specific [place] 1.010 (1.008-1.030) Urine Protein Negative (NEGATIVE) mg/dL Urine Glucose (UA) Normal (NEGATIVE) mg/dL Urine Ketones Negative (NEGATIVE) mg/dL Urine Occult Blood Negative (NEGATIVE) Urine Nitrite Negative (NEGAITVE) Urine Bilirubin Negative (NEGATIVE) Urine Urobilinogen Normal (NORMAL) mg/dL Ur Leukocyte Esterase Negative (NEGATIVE) Urine RBC 0-5 (0-5) Urine WBC 0-5 (0-5) Ur Epithelial Cells Not seen Amorphous Sediment Not seen Urine Bacteria Not seen Urine Mucus Not seen Blood Type O POSITIVE Gel Antibody Screen Negative Crossmatch See Detail 02/28/17 Range/Units 12:23 WBC (4.5-11.0) K/uL RBC (4.30-5.90) M/uL Hgb (12.0-15.0) g/dL Hct (40.0-54.0) % MCV (80-98) fL MCH (27-31) pg MCHC (32-36) % Plt Count (150-400) K/uL Neut % (Auto) (36-66) % Lymph % (Auto) (24-44) % [place] % (Auto) (2-6) % Eos % (Auto) (2-4) % Baso % (Auto) (0-1) % Puncture Site ABG pH (7.350-7.450) ABG pCO2 (35.0-42.0) mmHg ABG pO2 (75.0-100.0) mmHg ABG HCO3 (22.0-26.0) mmol/L ABG Total CO2 (23.0-27.0) mmol/L ABG O2 Saturation (95.0-98.0) % ABG O2 Content (15.0-23.0) %vol ABG Base Excess mm/L ABG Hemoglobin (13.5-18.0) g/dL ABG Oxyhemoglobin % ABG Carboxyhemoglobin (0.0-1.6) % ABG Methemoglobin % Anastacio Test O2 Delivery Device Oxygen Flow Rate L Sodium (140-148) mmol/L Potassium (3.6-5.2) mmol/L Chloride (100-108) mmol/L Carbon Dioxide (21-32) mmol/L Anion Gap (5.0-14.0) mmol/L BUN (7-18) mg/dL Creatinine (0.8-1.3) mg/dL Est Cr Clr Drug Dosing mL/min Estimated GFR (MDRD) (>60) Glucose (74-106) mg/dL Calcium (8.5-10.1) mg/dL Total Bilirubin (0.2-1.0) mg/dL AST (15-37) U/L ALT (12-78) U/L Alkaline Phosphatase (46-116) U/L Troponin I (0.000-0.056) ng/mL Vsy-P-Hxbfmusadwb Pept 7297 H (5-450) pg/mL Total Protein (6.4-8.2) g/dL Albumin (3.4-5.0) g/dL Globulin (2.3-3.5) g/dL Albumin/Globulin Ratio (1.2-2.2) Urine Color Urine Appearance Urine pH (4.5-8.0) Ur Specific [place] (1.008-1.030) Urine Protein (NEGATIVE) mg/dL Urine Glucose (UA) (NEGATIVE) mg/dL Urine Ketones (NEGATIVE) mg/dL Urine Occult Blood (NEGATIVE) Urine Nitrite (NEGAITVE) Urine Bilirubin (NEGATIVE) Urine Urobilinogen (NORMAL) mg/dL Ur Leukocyte Esterase (NEGATIVE) Urine RBC (0-5) Urine WBC (0-5) Ur Epithelial Cells Amorphous Sediment Urine Bacteria Urine Mucus Blood Type Gel Antibody Screen Crossmatch Meds: Medications Discontinued Medications Generic Name Dose Route Start Last Admin Trade Name Freq PRN Reason Stop Dose Admin Furosemide 60 mg 02/28/17 12:46 02/28/17 12:59 Lasix IVPUSH 02/28/17 12:47 60 mg ONETIME ONE Administration Naloxone HCl 0.4 mg 02/28/17 12:36 02/28/17 12:56 Narcan IVPUSH 02/28/17 12:37 0.4 mg ONETIME ONE Administration - Re-Assessments/Exams Free Text/Narrative Re-Assessment/Exam: 02/28/17 12:59 hg was in the 6 range. His co2 on the blood gases was 51. His bladder was markedly distended and a polk was placed with over 2000 cc. His chest xray show some mild congestion. He does not have a fever. His wound looks good. Departure - Departure Time of Disposition: 13:01 Disposition: Admitted As Inpatient 66 Condition: Fair Clinical Impression: Fluid overload, Anemia, Opiates and related narcotics causing adverse effect in therapeutic use, Urinary retention - Discharge Information Referrals: PCP,None [Primary Care Provider] - Forms: ED Department Discharge Care Plan Goals: admit to Dr morales - My Orders Last 24 Hours: My Active Orders 02/28/17 12:04 EKG Documentation Completion [RC] ASDIRECTED EKG 12 Lead [EK] Routine 02/28/17 12:05 Urinary Catheter Assessment [RC] ASDIRECTED 02/28/17 12:15 Polk Catheter Insertion [Insert Urinary Catheter] [OM.PC] Q24H 02/28/17 12:20 Chest 1V Frontal [CR] Stat 02/28/17 12:22 PATIENT RETYPE [BBK] Stat RED BLOOD CELLS LP [BBK] Stat TYPE AND SCREEN [BBK] Stat - Assessment/Plan Last 24 Hours: My Active Orders 02/28/17 12:04 EKG Documentation Completion [RC] ASDIRECTED EKG 12 Lead [EK] Routine 02/28/17 12:05 Urinary Catheter Assessment [RC] ASDIRECTED 02/28/17 12:15 Polk Catheter Insertion [Insert Urinary Catheter] [OM.PC] Q24H 02/28/17 12:20 Chest 1V Frontal [CR] Stat 02/28/17 12:22 PATIENT RETYPE [BBK] Stat RED BLOOD CELLS LP [BBK] Stat TYPE AND SCREEN [BBK] Stat
--- NOTE | 2017-02-28 13:45 | PCM.HP ---
H&P History of Present Illness - General Date of Service: 02/28/17 Admit Problem/Dx: Admission Diagnosis/Problem Admission Diagnosis/Problem CHF, Congestive heart failure Source of Information: Provider. No: Patient History Limitations: Reports: Altered Mental Status (obtunded) - History of Present Illness Initial Comments - Free Text/Narative: Axel presents to the emergency room today from the [facility] in [place] after they noticed he was more lethargic and appeared to be short of breath. He is obtunded at this time and unable to provide any history. History is gathered from the emergency room team. They report that the penitentiary has noticed a progressive decline in his mental status and increase in his work of breathing over the past 24 hours. They have not noticed any fevers. They have noticed that his weight is up approximately 8 pounds. Since arrival to the emergency room testing has revealed arterial blood gases with a normal pH but elevated PCO2 at 51. Electrolytes and renal function are acceptable. He did require noninvasive ventilation to help maintain oxygen saturation. He seems to be tolerating this well but remains essentially unresponsive. He did have a traumatic hip fracture that required surgical intervention approximately 2 weeks ago and has been at the [facility]it[facility]iary for the past 10 days. Hemoglobin also noted to be 6.9. He had significant urinary retention and required a De Guzman catheter to be placed. - Related Data Allergies/Adverse Reactions: Allergies Allergy/AdvReac Type Severity Reaction Status Date / Time No Known Allergies Allergy Verified 02/28/17 13:22 Home Medications: Home Meds Aspirin [Ecotrin] 325 mg PO BID #60 tab.ec 02/17/17 [Rx] Carbamide Peroxide [Debrox 6.5% Otic Soln] 4 drop EARLF DAILY #1 bottle [Rx] Docusate Sodium/Sennosides [Senna Plus] 1 tab PO BID PRN #60 tablet 02/17/17 [Rx ] Lisinopril [Prinivil] 20 mg PO DAILY #30 tablet 02/17/17 [Rx] Melatonin 5 mg PO BEDTIME #30 tablet 02/17/17 [Rx] Metoprolol Succinate 25 mg PO DAILY #30 tab.er.24h 02/17/17 [Rx] oxyCODONE 5 mg PO Q4H PRN #60 tablet 02/17/17 [Rx] Acetaminophen 1,000 mg PO TID 02/28/17 [History] Furosemide [Lasix] 20 mg PO DAILY 02/28/17 [History] Past Medical History HEENT History: Reports: Hard of Hearing Cardiovascular History: Reports: Bypass, Heart Failure, Hypertension Musculoskeletal History: Reports: Fracture Dermatologic History: Reports: Other (See Below) Other Dermatologic History: 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 - Infectious Disease History Infectious Disease History: Reports: Chicken Pox, Measles, Mumps - Past Surgical History HEENT Surgical History: Reports: Cataract Surgery Cardiovascular Surgical History: Reports: Coronary Artery Bypass Musculoskeletal Surgical History: Reports: Joint Replacement Dermatological Surgical History: Reports: None Social & Family History - Family History Family Medical History: Unobtainable (Patient obtunded) - Tobacco Use Smoking Status *Q: Never Smoker Second Hand Smoke Exposure: No - Caffeine Use Caffeine Use: Reports: Soda - Alcohol Use Alcohol Use History: No - Recreational Drug Use Recreational Drug Use: No H&P Review of Systems - Review of Systems: Review Of Systems: Unable To Obtain (Patient obtunded) Exam - Exam Exam: See Below - Vital Signs Vital Signs: Last Vital Signs Temp 37.2 C 02/28/17 13:14 Pulse 72 02/28/17 13:14 Resp 18 02/28/17 13:14 BP 140/64 02/28/17 13:14 Pulse Ox 97 02/28/17 13:14 Weight: 97.522 kg - Exam Quality Assessment: Supplemental Oxygen, Urinary Catheter General: Obtunded. No: Alert, Oriented, Cooperative, Mild Distress HEENT: No: Mucosa Moist & [place] (dry), Scleral Icterus Neck: Supple, Trachea Midline Lungs: Normal Respiratory Effort, Decreased Breath Sounds (Both bases), Rales ( Left lung base and right midlung) Cardiovascular: Regular Rate, Regular Rhythm, Systolic Murmur GI/Abdominal Exam: Soft, Non-Tender, No Distention Back Exam: No: Full Range of Motion, Muscle Spasm Extremities: Other (Massive pitting edema of both lower legs, left greater than right.). No: Increased Warmth, Redness Skin: Warm, Dry, Cool, Ecchymosis (Large left posterior thigh down to below the knee) Neuro Extensive - Mental Status: Slow Response to Commands. No: Alert, Oriented x3 Neuro Extensive - Motor, Sensory, Reflexes: No: Facial Palsy (R), Facial palsy ( L), Tremor Psychiatric: Other (Lethargic). No: Alert - Patient Data Lab Results Last 24 hrs: Laboratory Results - last 24 hr 02/28/17 02/28/17 02/28/17 Range/Units 12:03 12:04 12:04 WBC 12.6 H (4.5-11.0) K/uL RBC 2.16 L (4.30-5.90) M/uL Hgb 6.3 L* D (12.0-15.0) g/dL Hct 20.7 L (40.0-54.0) % MCV 96 (80-98) fL MCH 29 (27-31) pg MCHC 30 L (32-36) % Plt Count 557 H (150-400) K/uL Neut % (Auto) 85 H (36-66) % Lymph % (Auto) 10 L (24-44) % [place] % (Auto) 5 (2-6) % Eos % (Auto) 0 L (2-4) % Baso % (Auto) 0 (0-1) % Puncture Site Lt brachial ABG pH 7.407 (7.350-7.450) ABG pCO2 51.8 H (35.0-42.0) mmHg ABG pO2 110.0 H (75.0-100.0) mmHg ABG HCO3 32.0 H (22.0-26.0) mmol/L ABG Total CO2 31.1 H (23.0-27.0) mmol/L ABG O2 Saturation 98.7 H (95.0-98.0) % ABG O2 Content 8.6 L (15.0-23.0) %vol ABG Base Excess 7.1 mm/L ABG Hemoglobin 6.3 L (13.5-18.0) g/dL ABG Oxyhemoglobin 94.1 % ABG Carboxyhemoglobin 3.9 H (0.0-1.6) % ABG Methemoglobin 0.8 % Anastacio Test Not performed O2 Delivery Device Nasal cannula Oxygen Flow Rate 2 L Sodium (140-148) mmol/L Potassium (3.6-5.2) mmol/L Chloride (100-108) mmol/L Carbon Dioxide (21-32) mmol/L Anion Gap (5.0-14.0) mmol/L BUN (7-18) mg/dL Creatinine (0.8-1.3) mg/dL Est Cr Clr Drug Dosing mL/min Estimated GFR (MDRD) (>60) Glucose (74-106) mg/dL Calcium (8.5-10.1) mg/dL Total Bilirubin (0.2-1.0) mg/dL AST (15-37) U/L ALT (12-78) U/L Alkaline Phosphatase (46-116) U/L Troponin I 0.046 (0.000-0.056) ng/mL Jle-L-Dwkqpnrhlcg Pept (5-450) pg/mL Total Protein (6.4-8.2) g/dL Albumin (3.4-5.0) g/dL Globulin (2.3-3.5) g/dL Albumin/Globulin Ratio (1.2-2.2) Urine Color Urine Appearance Urine pH (4.5-8.0) Ur Specific [place] (1.008-1.030) Urine Protein (NEGATIVE) mg/dL Urine Glucose (UA) (NEGATIVE) mg/dL Urine Ketones (NEGATIVE) mg/dL Urine Occult Blood (NEGATIVE) Urine Nitrite (NEGAITVE) Urine Bilirubin (NEGATIVE) Urine Urobilinogen (NORMAL) mg/dL Ur Leukocyte Esterase (NEGATIVE) Urine RBC (0-5) Urine WBC (0-5) Ur Epithelial Cells Amorphous Sediment Urine Bacteria Urine Mucus Blood Type Gel Antibody Screen Crossmatch 02/28/17 02/28/17 02/28/17 Range/Units 12:04 12:21 12:22 WBC (4.5-11.0) K/uL RBC (4.30-5.90) M/uL Hgb (12.0-15.0) g/dL Hct (40.0-54.0) % MCV (80-98) fL MCH (27-31) pg MCHC (32-36) % Plt Count (150-400) K/uL Neut % (Auto) (36-66) % Lymph % (Auto) (24-44) % [place] % (Auto) (2-6) % Eos % (Auto) (2-4) % Baso % (Auto) (0-1) % Puncture Site ABG pH (7.350-7.450) ABG pCO2 (35.0-42.0) mmHg ABG pO2 (75.0-100.0) mmHg ABG HCO3 (22.0-26.0) mmol/L ABG Total CO2 (23.0-27.0) mmol/L ABG O2 Saturation (95.0-98.0) % ABG O2 Content (15.0-23.0) %vol ABG Base Excess mm/L ABG Hemoglobin (13.5-18.0) g/dL ABG Oxyhemoglobin % ABG Carboxyhemoglobin (0.0-1.6) % ABG Methemoglobin % Anastacio Test O2 Delivery Device Oxygen Flow Rate L Sodium 144 (140-148) mmol/L Potassium 3.9 (3.6-5.2) mmol/L Chloride 108 (100-108) mmol/L Carbon Dioxide 36 H (21-32) mmol/L Anion Gap 3.9 L (5.0-14.0) mmol/L BUN 53 H D (7-18) mg/dL Creatinine 0.9 (0.8-1.3) mg/dL Est Cr Clr Drug Dosing 59.71 mL/min Estimated GFR (MDRD) > 60 (>60) Glucose 118 H (74-106) mg/dL Calcium 8.0 L (8.5-10.1) mg/dL Total Bilirubin 0.4 (0.2-1.0) mg/dL AST 15 (15-37) U/L ALT 12 (12-78) U/L Alkaline Phosphatase 82 (46-116) U/L Troponin I (0.000-0.056) ng/mL Vof-G-Ynavxkktboh Pept (5-450) pg/mL Total Protein 6.0 L (6.4-8.2) g/dL Albumin 2.2 L (3.4-5.0) g/dL Globulin 3.8 H (2.3-3.5) g/dL Albumin/Globulin Ratio 0.6 L (1.2-2.2) Urine Color Yellow Urine Appearance Clear Urine pH 6.0 (4.5-8.0) Ur Specific [place] 1.010 (1.008-1.030) Urine Protein Negative (NEGATIVE) mg/dL Urine Glucose (UA) Normal (NEGATIVE) mg/dL Urine Ketones Negative (NEGATIVE) mg/dL Urine Occult Blood Negative (NEGATIVE) Urine Nitrite Negative (NEGAITVE) Urine Bilirubin Negative (NEGATIVE) Urine Urobilinogen Normal (NORMAL) mg/dL Ur Leukocyte Esterase Negative (NEGATIVE) Urine RBC 0-5 (0-5) Urine WBC 0-5 (0-5) Ur Epithelial Cells Not seen Amorphous Sediment Not seen Urine Bacteria Not seen Urine Mucus Not seen Blood Type O POSITIVE Gel Antibody Screen Negative Crossmatch See Detail 02/28/17 Range/Units 12:23 WBC (4.5-11.0) K/uL RBC (4.30-5.90) M/uL Hgb (12.0-15.0) g/dL Hct (40.0-54.0) % MCV (80-98) fL MCH (27-31) pg MCHC (32-36) % Plt Count (150-400) K/uL Neut % (Auto) (36-66) % Lymph % (Auto) (24-44) % [place] % (Auto) (2-6) % Eos % (Auto) (2-4) % Baso % (Auto) (0-1) % Puncture Site ABG pH (7.350-7.450) ABG pCO2 (35.0-42.0) mmHg ABG pO2 (75.0-100.0) mmHg ABG HCO3 (22.0-26.0) mmol/L ABG Total CO2 (23.0-27.0) mmol/L ABG O2 Saturation (95.0-98.0) % ABG O2 Content (15.0-23.0) %vol ABG Base Excess mm/L ABG Hemoglobin (13.5-18.0) g/dL ABG Oxyhemoglobin % ABG Carboxyhemoglobin (0.0-1.6) % ABG Methemoglobin % Anastacio Test O2 Delivery Device Oxygen Flow Rate L Sodium (140-148) mmol/L Potassium (3.6-5.2) mmol/L Chloride (100-108) mmol/L Carbon Dioxide (21-32) mmol/L Anion Gap (5.0-14.0) mmol/L BUN (7-18) mg/dL Creatinine (0.8-1.3) mg/dL Est Cr Clr Drug Dosing mL/min Estimated GFR (MDRD) (>60) Glucose (74-106) mg/dL Calcium (8.5-10.1) mg/dL Total Bilirubin (0.2-1.0) mg/dL AST (15-37) U/L ALT (12-78) U/L Alkaline Phosphatase (46-116) U/L Troponin I (0.000-0.056) ng/mL Woa-X-Jgbgbzqelke Pept 7297 H (5-450) pg/mL Total Protein (6.4-8.2) g/dL Albumin (3.4-5.0) g/dL Globulin (2.3-3.5) g/dL Albumin/Globulin Ratio (1.2-2.2) Urine Color Urine Appearance Urine pH (4.5-8.0) Ur Specific [place] (1.008-1.030) Urine Protein (NEGATIVE) mg/dL Urine Glucose (UA) (NEGATIVE) mg/dL Urine Ketones (NEGATIVE) mg/dL Urine Occult Blood (NEGATIVE) Urine Nitrite (NEGAITVE) Urine Bilirubin (NEGATIVE) Urine Urobilinogen (NORMAL) mg/dL Ur Leukocyte Esterase (NEGATIVE) Urine RBC (0-5) Urine WBC (0-5) Ur Epithelial Cells Amorphous Sediment Urine Bacteria Urine Mucus Blood Type Gel Antibody Screen Crossmatch Result Diagrams: 02/28/17 12:04 02/28/17 12:04 Imaging Impressions Last 24 hrs: Chest x-ray - images personally reviewed - *Q Meaningful Use (ADM) - VTE *Q VTE Criteria *Q: VTE Pharmacological Contraindications *Q: Risk of Bleeding (Large left thigh hematoma) - VTE Risk Assess *Q Each Risk Factor Represents 1 Point: History of Prior Major Surgery, Swollen Legs, Current, Obesity (BMI greater than 30), Congestive Heart Failure, Less than 1 Month Total Score 1 Point Risk Factors: 4 Each Risk Factor Represents 2 Points: None Total Score 2 Point Risk Factors: 0 Each Risk Factor Represents 3 Points: Age 75 Years or Greater Total Score 3 Point Risk Factors: 3 Each Risk Factor Represents 5 Points: Hip, Pelvis or Leg Fracture, Less than 1 month Total Score 5 Point Risk Factors: 5 Venous Thromboembolism Risk Factor Score *Q: 12 - Stroke *Q Stroke Criteria *Q: - AMI *Q AMI Criteria *Q: - Problem List (1) Systolic congestive heart failure SNOMED Code(s): 870350099 ICD Code: I50.20 - UNSPECIFIED SYSTOLIC (CONGESTIVE) HEART FAILURE Status: Acute Current Visit: Yes Qualifiers: Congestive heart failure chronicity: acute Qualified Code(s): I50.21 - Acute systolic (congestive) heart failure (2) Acute respiratory failure with hypoxia and hypercapnia SNOMED Code(s): 67604984, 682991940 ICD Code: J96.01 - ACUTE RESPIRATORY FAILURE WITH HYPOXIA; J96.02 - ACUTE RESPIRATORY FAILURE WITH HYPERCAPNIA Status: Acute Current Visit: Yes (3) Acute blood loss anemia SNOMED Code(s): 749087826 ICD Code: D62 - ACUTE POSTHEMORRHAGIC ANEMIA Status: Acute Current Visit : Yes (4) Hematoma of left thigh SNOMED Code(s): 746002303 ICD Code: S70.12XA - CONTUSION OF LEFT THIGH, INITIAL ENCOUNTER Status: Acute Current Visit: Yes Qualifiers: Encounter type: initial encounter Qualified Code(s): S70.12XA - Contusion of left thigh, initial encounter Problem List Initiated/Reviewed/Updated: Yes Orders Last 24hrs: Active Orders 24 hr Category Date Time Status Patient Status Manage Transfer [TRANSFER] Routine ADT 02/28/17 13:33 Ordered EKG Documentation Completion [RC] ASDIRECTED Care 02/28/17 12:04 Active De Guzman Catheter Insertion [Insert Urinary Catheter] [OM. Care 02/28/17 12:15 Ordered PC] Q24H Urinary Catheter Assessment [RC] ASDIRECTED Care 02/28/17 12:05 Active Chest 1V Frontal [CR] Stat Exams 02/28/17 12:20 Ordered PATIENT RETYPE [BBK] Stat Lab 02/28/17 12:22 Results RED BLOOD CELLS LP [BBK] Stat Lab 02/28/17 12:22 Results TYPE AND SCREEN [BBK] Stat Lab 02/28/17 12:22 Results Resuscitation Status Routine Resus Stat 02/28/17 13:35 Ordered EKG 12 Lead [EK] Routine Ther 02/28/17 12:04 Ordered Assessment/Plan Comment:: Assessment and plan - Acute systolic congestive heart failure - no history of systolic heart failure with acute on subacute respiratory decline per report. Obvious evidence for heart failure on examination. He was not on a diuretic up until the past couple of days. He has received furosemide in the emergency room. Complicated by respiratory failure as below. -Reassess volume status this evening -Cardiac monitoring -Daily weights -Intake and output monitoring -Restart beta jannette and VIVIENNE inhibitor once he is awake able to take pills -IV beta jannette if he is unable to take pills later in the day Acute respiratory failure with hypoxia and hypercapnia - secondary to congestive heart failure. He is currently requiring noninvasive ventilation to maintain saturations. -Continue noninvasive ventilation -Diuresis as above -Nebulizers as needed Left thigh hematoma with acute blood loss anemia - status post surgical fixation for hip fracture about 2 weeks ago. Hemoglobin now less than 7 and very large hematoma. -Transfuse 2 units of packed red blood cells -Hold twice daily aspirin Acute urinary retention - significant bladder distention on arrival. No history of urinary retention but given advanced age most likely cause of the urinary retention would be BPH. -Continue De Guzman catheter -Start tamsulosin when he is able to take medications Coronary artery disease - remote history of coronary artery disease. No active symptoms. Initial troponin is normal. -Restart medical management as soon as possible Maintenance issues - - DVT prophylaxis - mechanical with large hematoma and anemia - GI prophylaxis - PPI - Nutrition - nothing by mouth for now - De Guzman catheter - placed in the emergency room CODE STATUS - DNR/DNI per POLST Admission justification - This patient will be admitted for inpatient services and is medically appropriate meeting medical necessity for inpatient admission as outlined in my documentation. I reasonably expect the patient will require inpatient services that span a period time over 2 midnights. I reasonably expect this patient to be discharged or transferred within 96 hours [facility]. Disposition - anticipate [facility] the [facility] after the hospital stay Primary care physician - [facility] ([facility] Miguel A Nielson M.D.
[2017-02-28] MEDS ORDERED: Acetaminophen 650 MG Supp RECTAL PRN (14:21)
[2017-02-28] MEDS ORDERED: Ondansetron 4 MG Tab.DIS PO PRN (14:21)
[2017-02-28] MEDS ORDERED: Albuterol 0.083% 2.5 MG/3 ML Neb Soln NEB PRN (14:21)
[2017-02-28] MEDS ORDERED: Ondansetron 4 MG/2 ML SDV IV PRN (14:21)
[2017-02-28] MEDS ORDERED: Pantoprazole 40 MG Vial IV ONE (15:00)
[2017-03-01] MEDS ORDERED: Potassium Chloride 20 MEQ Tab.ER PO ONE (08:07)
--- NOTE | 2017-03-01 08:39 | PCM.PN ---
- General Info Date of Service: 03/01/17 Functional Status: Reports: Pain Controlled. Denies: Tolerating Diet, Ambulating - Review of Systems General: Reports: Weakness Neurological: Reports: Confusion Systems Review Comment:: No acute events overnight. Patient was more alert and interactive and did have the noninvasive ventilation off for a while. This morning he is still very lethargic and able to answer short questions before falling right back to sleep. He does not report any pain such as chest pain or hip pain. Vital signs have been stable. He has not had any fevers. Excellent diuresis overnight. - Patient Data Vitals - Most Recent: Last Vital Signs Temp 37.4 C 03/01/17 03:37 Pulse 94 03/01/17 08:00 Resp 14 03/01/17 08:00 BP 146/54 H 03/01/17 08:00 Pulse Ox 97 03/01/17 08:00 Weight - Most Recent: 93.894 kg I&O - Last 24 Hours: Intake & Output 02/28/17 03/01/17 03/01/17 22:59 06:59 14:59 Intake Total 307 390 Output Total 2350 2800 450 Balance -2743 -1220 -450 Lab Results Last 24 Hours: Laboratory Results - last 24 hr 02/28/17 02/28/17 02/28/17 Range/Units 14:21 17:00 17:00 WBC (4.5-11.0) K/uL RBC (4.30-5.90) M/uL Hgb (12.0-15.0) g/dL Hct (40.0-54.0) % MCV (80-98) fL MCH (27-31) pg MCHC (32-36) % Plt Count (150-400) K/uL Puncture Site Lt brachial ABG pH 7.443 (7.350-7.450) ABG pCO2 49.0 H (35.0-42.0) mmHg ABG pO2 136.0 H (75.0-100.0) mmHg ABG HCO3 32.9 H (22.0-26.0) mmol/L ABG Total CO2 31.8 H (23.0-27.0) mmol/L ABG O2 Saturation 99.7 H (95.0-98.0) % ABG O2 Content 9.0 L (15.0-23.0) %vol ABG Base Excess 8.4 mm/L ABG Hemoglobin 6.5 L (13.5-18.0) g/dL ABG Oxyhemoglobin 94.8 % ABG Carboxyhemoglobin 4.5 H (0.0-1.6) % ABG Methemoglobin 0.4 % Anastacio Test Not performed O2 Delivery Device Bipap Oxygen Flow Rate L Sodium (140-148) mmol/L Potassium (3.6-5.2) mmol/L Chloride (100-108) mmol/L Carbon Dioxide (21-32) mmol/L Anion Gap (5.0-14.0) mmol/L BUN (7-18) mg/dL Creatinine (0.8-1.3) mg/dL Est Cr Clr Drug Dosing mL/min Estimated GFR (MDRD) (>60) Glucose (74-106) mg/dL Calcium (8.5-10.1) mg/dL Magnesium 2.1 (1.8-2.4) mg/dL Troponin I 0.051 (0.000-0.056) ng/mL 03/01/17 03/01/17 Range/Units 05:44 05:44 WBC 14.3 H (4.5-11.0) K/uL RBC 2.85 L (4.30-5.90) M/uL Hgb 8.3 L D (12.0-15.0) g/dL Hct 27.1 L (40.0-54.0) % MCV 95 (80-98) fL MCH 29 (27-31) pg MCHC 31 L (32-36) % Plt Count 477 H (150-400) K/uL Puncture Site ABG pH (7.350-7.450) ABG pCO2 (35.0-42.0) mmHg ABG pO2 (75.0-100.0) mmHg ABG HCO3 (22.0-26.0) mmol/L ABG Total CO2 (23.0-27.0) mmol/L ABG O2 Saturation (95.0-98.0) % ABG O2 Content (15.0-23.0) %vol ABG Base Excess mm/L ABG Hemoglobin (13.5-18.0) g/dL ABG Oxyhemoglobin % ABG Carboxyhemoglobin (0.0-1.6) % ABG Methemoglobin % Anastacio Test O2 Delivery Device Oxygen Flow Rate L Sodium 148 (140-148) mmol/L Potassium 3.4 L (3.6-5.2) mmol/L Chloride 107 (100-108) mmol/L Carbon Dioxide 41 H (21-32) mmol/L Anion Gap 3.4 L (5.0-14.0) mmol/L BUN 47 H (7-18) mg/dL Creatinine 1.1 (0.8-1.3) mg/dL Est Cr Clr Drug Dosing 48.85 mL/min Estimated GFR (MDRD) > 60 (>60) Glucose 113 H (74-106) mg/dL Calcium 7.8 L (8.5-10.1) mg/dL Magnesium (1.8-2.4) mg/dL Troponin I (0.000-0.056) ng/mL Med Orders - Current: Current Medications Acetaminophen (Tylenol) 650 mg PO Q4H PRN PRN Reason: Pain (Mild 1-3)/fever Acetaminophen (Tylenol) 650 mg RECTAL Q4H PRN PRN Reason: Mild pain/fever Albuterol (Proventil Neb Soln) 2.5 mg NEB Q4H PRN PRN Reason: Shortness Of Breath/wheezing Furosemide (Lasix) 40 mg IVPUSH ONETIME ONE Stop: 03/01/17 08:37 Ondansetron HCl (Zofran Odt) 4 mg PO Q6H PRN PRN Reason: Nausea able to take PO Ondansetron HCl (Zofran) 4 mg IV Q6H PRN PRN Reason: Nausea/Vomiting Discontinued Medications Furosemide (Lasix) 60 mg IVPUSH ONETIME ONE Stop: 02/28/17 12:47 Last Admin: 02/28/17 12:59 Dose: 60 mg Furosemide (Lasix) 60 mg IVPUSH ONETIME ONE Stop: 02/28/17 18:57 Last Admin: 02/28/17 19:14 Dose: 60 mg Naloxone HCl (Narcan) 0.4 mg IVPUSH ONETIME ONE Stop: 02/28/17 12:37 Last Admin: 02/28/17 12:56 Dose: 0.4 mg Pantoprazole Sodium (Protonix Iv) 40 mg IV ONETIME ONE Stop: 02/28/17 15:01 Last Admin: 02/28/17 16:05 Dose: 40 mg Potassium Chloride (Klor-Con M20) 40 meq PO ONETIME ONE Stop: 03/01/17 08:08 - Exam Quality Assessment: Supplemental Oxygen, Urine Catheter General: No Acute Distress, Lethargic. No: Alert HEENT: Pupils Equal Neck: Supple Lungs: Normal Respiratory Effort, Decreased Breath Sounds (both bases), Rales ( both bases) Cardiovascular: Regular Rate, Irregular Rhythm. No: Murmurs GI/Abdominal Exam: Soft, Non-Tender, No Distention Extremities: Pedal Edema (pitting edema both legs to the waist, L>R). No: Increased Warmth Skin: Warm, Dry Psy/Mental Status: Other (lethargic). No: Alert - Problem List & Annotations (1) Systolic congestive heart failure SNOMED Code(s): 325903567 Code(s): I50.20 - UNSPECIFIED SYSTOLIC (CONGESTIVE) HEART FAILURE Status: Acute Current Visit: Yes Qualifiers: Congestive heart failure chronicity: acute Qualified Code(s): I50.21 - Acute systolic (congestive) heart failure (2) Acute respiratory failure with hypoxia and hypercapnia SNOMED Code(s): 80751608, 251894412 Code(s): J96.01 - ACUTE RESPIRATORY FAILURE WITH HYPOXIA; J96.02 - ACUTE RESPIRATORY FAILURE WITH HYPERCAPNIA Status: Acute Current Visit: Yes (3) Acute blood loss anemia SNOMED Code(s): 908909675 Code(s): D62 - ACUTE POSTHEMORRHAGIC ANEMIA Status: Acute Current Visit: Yes (4) Hematoma of left thigh SNOMED Code(s): 794936562 Code(s): S70.12XA - CONTUSION OF LEFT THIGH, INITIAL ENCOUNTER Status: Acute Current Visit: Yes Qualifiers: Encounter type: initial encounter Qualified Code(s): S70.12XA - Contusion of left thigh, initial encounter - Problem List Review Problem List Initiated/Reviewed/Updated: Yes - My Orders Last 24 Hours: My Active Orders 02/28/17 13:35 Resuscitation Status Routine 02/28/17 14:21 Patient Status [ADT] Routine BIPAP Adult [RT BiPAP/CPAP] [RC] ASDIRECTED Bedrest Bedside Commode [RC] ASDIRECTED Cardiac Monitoring [RC] Q6H Height and Weight [RC] DAILY Intake and Output [RC] QSHIFT Notify Provider Vital Signs [RC] ASDIRECTED Oxygen Therapy [RC] PRN Pulse Oximetry [RC] CONTINUOUS RT Aerosol Therapy [RC] ASDIRECTED VTE/DVT Education [RC] Per Unit Routine Vital Signs [RC] Q2HR Acetaminophen [Tylenol] 650 mg PO Q4H PRN Acetaminophen [Tylenol] 650 mg RECTAL Q4H PRN Albuterol [Proventil Neb Soln] 2.5 mg NEB Q4H PRN Ondansetron [Zofran ODT] 4 mg PO Q6H PRN Ondansetron [Zofran] 4 mg IV Q6H PRN Antiembolic Hose [OM.PC] Per Unit Routine Transfuse Red Blood Cells [COMM] Routine VTE Pharmacological Contraindications [AST] Per Unit Routine 02/28/17 Lunch Nothing per Oral Now Diet [DIET] 03/01/17 08:36 Furosemide [Lasix] 40 mg IVPUSH ONETIME ONE 03/01/17 08:45 Potassium Chloride 20 MEQ,Lidocaine 1% 2 ML IN 100ML NS @ 50 MLS/HR Potassium Chloride 20 meq Lidocaine 1% [Xylocaine 1%] 2 ml Sodium Chloride 0.9% [Normal Saline] 100 ml IV Q2H 03/01/17 12:00 ABG [BLOOD GAS ARTERIAL] [BG] Timed 03/01/17 17:00 HEMOGLOBIN [HEME] Timed POTASSIUM,K [CHEM] Timed 03/02/17 05:00 BASIC METABOLIC PANEL,BMP [CHEM] Timed CBC W/O DIFF,HEMOGRAM [HEME] Timed (1) - Plan Plan:: Assessment and plan - Acute systolic congestive heart failure - history of systolic heart failure with acute on subacute respiratory decline per report. Excellent diuresis overnight and clinically is looking a little better today but still somnolent. Repeat blood gases later this morning revealed worsening CO2 retention. His weight is down about 6 pounds. -Furosemide this morning -Reassess volume status again this evening -Cardiac monitoring -Daily weights -Intake and output monitoring -Restart beta jannette and VIVIENNE inhibitor once he is awake able to take pills -IV beta jannette if he is unable to take pills and heart rate is rising Acute respiratory failure with hypoxia and hypercapnia - secondary to congestive heart failure. Clinically was a little bit better overnight and this morning but PCO2 did rise after he had been off of his noninvasive ventilation for a while. I still believe his somnolence is related to the hypercapnia but plan to rule out intracranial pathology as well. -Continue noninvasive ventilation -Diuresis as above -Nebulizers as needed -Head CT Left thigh hematoma with acute blood loss anemia - status post surgical fixation for hip fracture about 2 weeks ago. Hemoglobin has responded nicely to transfusion. -Hemoglobin in the morning -Hold twice daily aspirin Acute urinary retention - significant bladder distention on arrival. No history of urinary retention but given advanced age most likely cause of the urinary retention would be BPH. -Continue De Guzman catheter -Start tamsulosin when he is able to take medications Coronary artery disease - remote history of coronary artery disease. No active symptoms. Initial troponin is normal. -Restart medical management as soon as possible Maintenance issues - - DVT prophylaxis - mechanical with large hematoma and anemia - GI prophylaxis - PPI - Nutrition - nothing by mouth for now - De Guzman catheter - placed in the emergency room, needs to remain in place for strict intake and output monitoring Disposition - anticipate [facility] to [facility] after the hospital stay Miguel A Nielson M.D.
--- NOTE | 2017-03-01 08:45 | CR ---
Chest 1V Frontal INDICATION: sob COMPARISON: 02/13/2017 FINDINGS: Single AP chest. Cardiomegaly and sternotomy wires. Previous vascular congestion has improved. Small left pleural effusion or pleural thickening on the left unchanged. No new infiltrates. Old right clavicle fracture. IMPRESSION: Mild vascular congestion and probable mild CHF though improvement since 02/13/2017.
[2017-03-01] MEDS ORDERED: Furosemide 40 MG/4 ML VIAL IVPUSH ONE (09:00)
[2017-03-01] MEDS: Potassium Chloride 20 MEQ, Lidocaine 1% 2 ML in Sodium Chloride 0.9% 100 ML IV SCH ×2 (09:59→12:37)
--- NOTE | 2017-03-01 13:07 | CR ---
Hip Min 2V or 3V Lt INDICATION: hip pain and swelling COMPARISON: 02/13/2017 view of the pelvis FINDINGS: 4 views. Previous intertrochanteric comminuted fracture left hip now showing ORIF. Alignment anatomic. Skin s taples.
--- NOTE | 2017-03-01 13:41 | CT ---
Head wo Cont INDICATION: fall, confusion TECHNIQUE: CT images of the head obtained without IV contrast. DLP: 861 mGycm COMPARISON: None FINDINGS: No acute intracranial abnormality. No hemorrhage, edema or mass effect. Mild atrophy and chronic small vessel ischemic disease. The ventricles are normal size. Skull intact. Visualized paranasal sinuses clear. IMPRESSION: Nothing acute. Atrophy and chronic small vessel ischemic disease.
--- NOTE | 2017-03-02 09:15 | PCM.PN ---
- General Info Date of Service: 03/02/17 Functional Status: Reports: Pain Controlled, Urinating - Review of Systems General: Reports: Weakness Pulmonary: Reports: Shortness of Breath Musculoskeletal: Reports: Leg Pain (left hip) Neurological: Reports: Confusion Systems Review Comment:: no acute events overnight. He is more alert and interactive today and does not fall asleep immediately during our conversation. Oxygenation has been stable with continued supplemental oxygen requirement. He complains of some left thigh pain but no complaints of chest pain. He does not feel short of breath. He has been running low-grade fevers. Hemoglobin has dropped from yesterday with no obvious source of bleeding. Vital signs have otherwise been stable. - Patient Data Vitals - Most Recent: Last Vital Signs Temp 37.7 C 03/02/17 08:00 Pulse 95 03/02/17 05:46 Resp 23 H 03/02/17 08:00 BP 134/45 L 03/02/17 08:00 Pulse Ox 97 03/02/17 08:02 Weight - Most Recent: 93.894 kg I&O - Last 24 Hours: Intake & Output 03/01/17 03/02/17 03/02/17 22:59 06:59 14:59 Intake Total 780 700 Output Total 450 800 Balance 330 -100 Lab Results Last 24 Hours: Laboratory Results - last 24 hr 03/01/17 03/01/17 03/01/17 Range/Units 12:00 17:00 17:00 WBC (4.5-11.0) K/uL RBC (4.30-5.90) M/uL Hgb 8.3 L (12.0-15.0) g/dL Hct (40.0-54.0) % MCV (80-98) fL MCH (27-31) pg MCHC (32-36) % Plt Count (150-400) K/uL Puncture Site Lt brachial ABG pH 7.439 (7.350-7.450) ABG pCO2 57.1 H (35.0-42.0) mmHg ABG pO2 111.0 H (75.0-100.0) mmHg ABG HCO3 38.1 H (22.0-26.0) mmol/L ABG Total CO2 35.8 H (23.0-27.0) mmol/L ABG O2 Saturation 98.8 H (95.0-98.0) % ABG O2 Content 11.5 L (15.0-23.0) %vol ABG Base Excess 12.5 mm/L ABG Hemoglobin 8.5 L (13.5-18.0) g/dL ABG Oxyhemoglobin 95.0 % ABG Carboxyhemoglobin 3.2 H (0.0-1.6) % ABG Methemoglobin 0.6 % Anastacio Test Not performed O2 Delivery Device Nasal cannula Oxygen Flow Rate 2 L Sodium (140-148) mmol/L Potassium 3.6 (3.6-5.2) mmol/L Chloride (100-108) mmol/L Carbon Dioxide (21-32) mmol/L Anion Gap (5.0-14.0) mmol/L BUN (7-18) mg/dL Creatinine (0.8-1.3) mg/dL Est Cr Clr Drug Dosing mL/min Estimated GFR (MDRD) (>60) Glucose (74-106) mg/dL Calcium (8.5-10.1) mg/dL 03/02/17 03/02/17 Range/Units 04:38 04:38 WBC 12.9 H (4.5-11.0) K/uL RBC 2.59 L (4.30-5.90) M/uL Hgb 7.7 L (12.0-15.0) g/dL Hct 25.6 L (40.0-54.0) % MCV 99 H (80-98) fL MCH 30 (27-31) pg MCHC 30 L (32-36) % Plt Count 417 H (150-400) K/uL Puncture Site ABG pH (7.350-7.450) ABG pCO2 (35.0-42.0) mmHg ABG pO2 (75.0-100.0) mmHg ABG HCO3 (22.0-26.0) mmol/L ABG Total CO2 (23.0-27.0) mmol/L ABG O2 Saturation (95.0-98.0) % ABG O2 Content (15.0-23.0) %vol ABG Base Excess mm/L ABG Hemoglobin (13.5-18.0) g/dL ABG Oxyhemoglobin % ABG Carboxyhemoglobin (0.0-1.6) % ABG Methemoglobin % Anastacio Test O2 Delivery Device Oxygen Flow Rate L Sodium 147 (140-148) mmol/L Potassium 3.6 (3.6-5.2) mmol/L Chloride 107 (100-108) mmol/L Carbon Dioxide 41 H (21-32) mmol/L Anion Gap 2.6 L (5.0-14.0) mmol/L BUN 37 H (7-18) mg/dL Creatinine 1.1 (0.8-1.3) mg/dL Est Cr Clr Drug Dosing 48.97 mL/min Estimated GFR (MDRD) > 60 (>60) Glucose 98 (74-106) mg/dL Calcium 7.8 L (8.5-10.1) mg/dL Med Orders - Current: Current Medications Acetaminophen (Tylenol) 650 mg PO Q4H PRN PRN Reason: Pain (Mild 1-3)/fever Acetaminophen (Tylenol) 650 mg RECTAL Q4H PRN PRN Reason: Mild pain/fever Albuterol (Proventil Neb Soln) 2.5 mg NEB Q4H PRN PRN Reason: Shortness Of Breath/wheezing Ondansetron HCl (Zofran Odt) 4 mg PO Q6H PRN PRN Reason: Nausea able to take PO Ondansetron HCl (Zofran) 4 mg IV Q6H PRN PRN Reason: Nausea/Vomiting Discontinued Medications Furosemide (Lasix) 60 mg IVPUSH ONETIME ONE Stop: 02/28/17 12:47 Last Admin: 02/28/17 12:59 Dose: 60 mg Furosemide (Lasix) 60 mg IVPUSH ONETIME ONE Stop: 02/28/17 18:57 Last Admin: 02/28/17 19:14 Dose: 60 mg Furosemide (Lasix) 40 mg IVPUSH ONETIME ONE Stop: 03/01/17 09:01 Last Admin: 03/01/17 08:46 Dose: 40 mg Potassium Chloride 20 meq/Lidocaine HCl 2 ml/ Sodium Chloride 112 mls @ 55 mls/ hr IV Q2H CECY Stop: 03/01/17 13:29 Last Admin: 03/01/17 12:37 Dose: 55 mls/hr Naloxone HCl (Narcan) 0.4 mg IVPUSH ONETIME ONE Stop: 02/28/17 12:37 Last Admin: 02/28/17 12:56 Dose: 0.4 mg Pantoprazole Sodium (Protonix Iv) 40 mg IV ONETIME ONE Stop: 02/28/17 15:01 Last Admin: 02/28/17 16:05 Dose: 40 mg Potassium Chloride (Klor-Con M20) 40 meq PO ONETIME ONE Stop: 03/01/17 08:08 - Exam Quality Assessment: Supplemental Oxygen General: Alert, Oriented, Cooperative, No Acute Distress Neck: Supple Lungs: Clear to Auscultation, Normal Respiratory Effort, Decreased Breath Sounds (both bases, left more than right ) Cardiovascular: Regular Rate, Regular Rhythm, No Murmurs GI/Abdominal Exam: Normal Bowel Sounds, Soft, Non-Tender, No Distention Extremities: Pedal Edema (bilateral lower leg swelling but improving. significant swelling left thigh). No: Increased Warmth Skin: Warm, Moist, Ecchymosis (left thigh) Wound/Incisions: Healing Well, No Drainage Psy/Mental Status: Alert, Other (lethargic ) - Problem List & Annotations (1) Systolic congestive heart failure SNOMED Code(s): 649839841 Code(s): I50.20 - UNSPECIFIED SYSTOLIC (CONGESTIVE) HEART FAILURE Status: Acute Current Visit: Yes Qualifiers: Congestive heart failure chronicity: acute Qualified Code(s): I50.21 - Acute systolic (congestive) heart failure (2) Acute respiratory failure with hypoxia and hypercapnia SNOMED Code(s): 84072855, 837123889 Code(s): J96.01 - ACUTE RESPIRATORY FAILURE WITH HYPOXIA; J96.02 - ACUTE RESPIRATORY FAILURE WITH HYPERCAPNIA Status: Acute Current Visit: Yes (3) Acute blood loss anemia SNOMED Code(s): 912087582 Code(s): D62 - ACUTE POSTHEMORRHAGIC ANEMIA Status: Acute Current Visit: Yes (4) Hematoma of left thigh SNOMED Code(s): 568665834 Code(s): S70.12XA - CONTUSION OF LEFT THIGH, INITIAL ENCOUNTER Status: Acute Current Visit: Yes Qualifiers: Encounter type: initial encounter Qualified Code(s): S70.12XA - Contusion of left thigh, initial encounter - Problem List Review Problem List Initiated/Reviewed/Updated: Yes - My Orders Last 24 Hours: My Active Orders 03/02/17 09:10 CXR [Chest 1V Frontal] [CR] Routine UA W/MICROSCOPIC [URIN] Routine 03/02/17 09:11 RED BLOOD CELLS LP [BBK] Routine Furosemide [Lasix] 40 mg IVPUSH ONETIME ONE Transfuse Red Blood Cells [COMM] Routine 03/02/17 09:15 Potassium Chloride 20 MEQ,Lidocaine 1% 2 ML IN 100ML NS @ 50 MLS/HR Potassium Chloride 20 meq Lidocaine 1% [Xylocaine 1%] 2 ml Sodium Chloride 0.9% [Normal Saline] 100 ml IV Q2H 03/02/17 Lunch Clear Liquid Diet [DIET] 03/03/17 05:00 BASIC METABOLIC PANEL,BMP [CHEM] Timed BLOOD GAS ARTERIAL [BG] Timed CBC W/O DIFF,HEMOGRAM [HEME] Timed (1) - Plan Plan:: Assessment and plan - Acute systolic congestive heart failure - history of systolic heart failure with acute on subacute respiratory decline per report. diuresis has been excellent and edema is improving. Oxygenation seems a little better today and he is more alert and interactive. -Furosemide this morning -Reassess volume status again this afternoon after blood transfusion -Cardiac monitoring -Daily weights -Intake and output monitoring -Restart beta jannette tomorrow Acute respiratory failure with hypoxia and hypercapnia - secondary to congestive heart failure. he is more alert and interactive today and oxygenation seems to be slowly improving. -Continue noninvasive ventilation as needed -Diuresis as above -Nebulizers as needed Left thigh hematoma with acute blood loss anemia - status post surgical fixation for hip fracture about 2 weeks ago. Hemoglobin responded to transfusion but has dipped again and hemoglobin is less than 8. -Transfuse 1 unit today -Hemoglobin in the morning -restart aspirin once daily tomorrow Acute urinary retention - significant bladder distention on arrival. No history of urinary retention but given advanced age most likely cause of the urinary retention would be BPH. -Continue De Guzman catheter -Start tamsulosin in the morning Coronary artery disease - remote history of coronary artery disease. No active symptoms. -Restart medical management Maintenance issues - - DVT prophylaxis - mechanical with large hematoma and anemia - GI prophylaxis - PPI - Nutrition - clear liquids - De Guzman catheter - placed in the emergency room, needs to remain in place for strict intake and output monitoring Disposition - anticipate discharge back to the [facility] after the hospital stay Miguel A Nielson M.D.
[2017-03-02] MEDS ORDERED: Furosemide 40 MG/4 ML VIAL IVPUSH ONE (09:30)
--- NOTE | 2017-03-02 09:52 | CR ---
Chest 1V Frontal INDICATION: hypoxia COMPARISON: 02/28/2017 FINDINGS: Single AP chest. Mild cardiomegaly unchanged. Sternotomy wires. Haziness at the left bas e may represent pleural fluid layering posteriorly or possibly developing infiltrate. Continued impr ovement in mild CHF. Known rib fractures on the right and old right clavicle fracture. IMPRESSION: 1. Increasing left pleural effusion versus developing infiltrate at the left lung base. 2. Continued improvement in mild CHF.
[2017-03-02] MEDS: Potassium Chloride 20 MEQ, Lidocaine 1% 2 ML in Sodium Chloride 0.9% 100 ML IV SCH ×2 (12:22→14:38)
[2017-03-02] MEDS: cefTRIAXone 2 GM in Sodium Chloride 0.9% 50 ML IV SCH (16:54)
[2017-03-02] MEDS: Azithromycin 500 MG in Sodium Chloride 0.9% 250 ML IV SCH (17:40)
[2017-03-03] MEDS: Metoprolol Succinate 25 MG Tab.ER PO SCH (08:52)
[2017-03-03] MEDS: Tamsulosin 0.4 MG Cap.ER PO SCH (08:52)
[2017-03-03] MEDS ORDERED: Aspirin 325 MG Tab.EC PO SCH (09:00)
--- NOTE | 2017-03-03 10:13 | PCM.PN ---
- General Info Date of Service: 03/03/17 Functional Status: Reports: Pain Controlled - Review of Systems General: Reports: Weakness Pulmonary: Denies: Shortness of Breath Neurological: Reports: Confusion Systems Review Comment:: No acute events overnight. He did not use his noninvasive ventilation and he is sleepy this morning. He will answer some questions but quickly falls back to sleep. He says that he is not having pain. He says that he does not feel short of breath. He continues to have low-grade temperature elevations. Tolerating current antibiotics. Good diuresis again yesterday. PCO2 is more elevated today than it has been. - Patient Data Vitals - Most Recent: Last Vital Signs Temp 35.5 C 03/03/17 08:00 Pulse 87 03/03/17 08:52 Resp 28 H 03/03/17 08:00 BP 148/50 H 03/03/17 08:52 Pulse Ox 97 03/03/17 08:00 Weight - Most Recent: 93.894 kg I&O - Last 24 Hours: Intake & Output 03/02/17 03/03/17 03/03/17 22:59 06:59 14:59 Intake Total 1380 160 Output Total 1050 75 Balance 330 85 Lab Results Last 24 Hours: Laboratory Results - last 24 hr 03/03/17 03/03/17 03/03/17 Range/Units 05:00 05:26 05:26 WBC 10.4 (4.5-11.0) K/uL RBC 2.82 L (4.30-5.90) M/uL Hgb 8.3 L (12.0-15.0) g/dL Hct 27.7 L (40.0-54.0) % MCV 98 (80-98) fL MCH 29 (27-31) pg MCHC 30 L (32-36) % Plt Count 355 (150-400) K/uL Puncture Site Lt brachial ABG pH 7.405 (7.350-7.450) ABG pCO2 64.1 H (35.0-42.0) mmHg ABG pO2 130.0 H (75.0-100.0) mmHg ABG HCO3 39.4 H (22.0-26.0) mmol/L ABG Total CO2 37.3 H (23.0-27.0) mmol/L ABG O2 Saturation 99.4 H (95.0-98.0) % ABG O2 Content 11.5 L (15.0-23.0) %vol ABG Base Excess 13.2 mm/L ABG Hemoglobin 8.4 L (13.5-18.0) g/dL ABG Oxyhemoglobin 95.7 % ABG Carboxyhemoglobin 3.0 H (0.0-1.6) % ABG Methemoglobin 0.7 % Anastacio Test Not performed O2 Delivery Device Nasal cannula Oxygen Flow Rate 2 L Sodium 142 (140-148) mmol/L Potassium 3.8 (3.6-5.2) mmol/L Chloride 104 (100-108) mmol/L Carbon Dioxide 40 H (21-32) mmol/L Anion Gap 1.8 L (5.0-14.0) mmol/L BUN 27 H (7-18) mg/dL Creatinine 0.9 (0.8-1.3) mg/dL Est Cr Clr Drug Dosing 59.85 mL/min Estimated GFR (MDRD) > 60 (>60) Glucose 91 (74-106) mg/dL Calcium 8.0 L (8.5-10.1) mg/dL Med Orders - Current: Current Medications Acetaminophen (Tylenol) 650 mg PO Q4H PRN PRN Reason: Pain (Mild 1-3)/fever Acetaminophen (Tylenol) 650 mg RECTAL Q4H PRN PRN Reason: Mild pain/fever Albuterol (Proventil Neb Soln) 2.5 mg NEB Q4H PRN PRN Reason: Shortness Of Breath/wheezing Aspirin (Ecotrin) 325 mg PO DAILY [facility] Last Admin: 03/03/17 08:52 Dose: 325 mg Azithromycin 500 mg/ Sodium (Chloride) 250 mls @ 250 mls/hr IV Q24H [facility] Last Admin: 03/02/17 17:40 Dose: 250 mls/hr Ceftriaxone Sodium 2 gm/ (Sodium Chloride) 50 mls @ 100 mls/hr IV Q24H [facility] Last Admin: 03/02/17 16:54 Dose: 100 mls/hr Metoprolol Succinate (Toprol Xl) 25 mg PO DAILY [facility] Last Admin: 03/03/17 08:52 Dose: 25 mg Ondansetron HCl (Zofran Odt) 4 mg PO Q6H PRN PRN Reason: Nausea able to take PO Ondansetron HCl (Zofran) 4 mg IV Q6H PRN PRN Reason: Nausea/Vomiting Tamsulosin HCl (Flomax) 0.4 mg PO PCBREAKFAST [facility] Last Admin: 03/03/17 08:52 Dose: 0.4 mg Discontinued Medications Furosemide (Lasix) 60 mg IVPUSH ONETIME ONE Stop: 02/28/17 12:47 Last Admin: 02/28/17 12:59 Dose: 60 mg Furosemide (Lasix) 60 mg IVPUSH ONETIME ONE Stop: 02/28/17 18:57 Last Admin: 02/28/17 19:14 Dose: 60 mg Furosemide (Lasix) 40 mg IVPUSH ONETIME ONE Stop: 03/01/17 09:01 Last Admin: 03/01/17 08:46 Dose: 40 mg Furosemide (Lasix) 40 mg IVPUSH ONETIME ONE Stop: 03/02/17 09:31 Last Admin: 03/02/17 09:27 Dose: 40 mg Potassium Chloride 20 meq/Lidocaine HCl 2 ml/ Sodium Chloride 112 mls @ 55 mls/ hr IV Q2H [facility] Stop: 03/01/17 13:29 Last Admin: 03/01/17 12:37 Dose: 55 mls/hr Potassium Chloride 20 meq/Lidocaine HCl 2 ml/ Sodium Chloride 112 mls @ 56 mls/ hr IV Q2H [facility] Stop: 03/02/17 13:59 Last Admin: 03/02/17 14:38 Dose: 56 mls/hr Naloxone HCl (Narcan) 0.4 mg IVPUSH ONETIME ONE Stop: 02/28/17 12:37 Last Admin: 02/28/17 12:56 Dose: 0.4 mg Pantoprazole Sodium (Protonix Iv) 40 mg IV ONETIME ONE Stop: 02/28/17 15:01 Last Admin: 02/28/17 16:05 Dose: 40 mg Potassium Chloride (Klor-Con M20) 40 meq PO ONETIME ONE Stop: 03/01/17 08:08 Last Admin: 03/02/17 12:47 Dose: Not Given - Exam Quality Assessment: Supplemental Oxygen, Urine Catheter General: Alert, Cooperative, No Acute Distress, Lethargic Neck: Supple Lungs: Normal Respiratory Effort, Decreased Breath Sounds (left lung base). No : Wheezing Cardiovascular: Regular Rate, Regular Rhythm GI/Abdominal Exam: Normal Bowel Sounds, Soft, Non-Tender, No Distention Extremities: Pedal Edema (mild bilateral ankle edema). No: Increased Warmth Skin: Warm, Dry, Ecchymosis (left thigh ) Psy/Mental Status: Alert, Other (lethargic) - Problem List & Annotations (1) Systolic congestive heart failure SNOMED Code(s): 617681444 Code(s): I50.20 - UNSPECIFIED SYSTOLIC (CONGESTIVE) HEART FAILURE Status: Acute Current Visit: Yes Qualifiers: Congestive heart failure chronicity: acute Qualified Code(s): I50.21 - Acute systolic (congestive) heart failure (2) Acute respiratory failure with hypoxia and hypercapnia SNOMED Code(s): 89652386, 390475971 Code(s): J96.01 - ACUTE RESPIRATORY FAILURE WITH HYPOXIA; J96.02 - ACUTE RESPIRATORY FAILURE WITH HYPERCAPNIA Status: Acute Current Visit: Yes (3) Acute blood loss anemia SNOMED Code(s): 517204182 Code(s): D62 - ACUTE POSTHEMORRHAGIC ANEMIA Status: Acute Current Visit: Yes (4) Hematoma of left thigh SNOMED Code(s): 907215909 Code(s): S70.12XA - CONTUSION OF LEFT THIGH, INITIAL ENCOUNTER Status: Acute Current Visit: Yes Qualifiers: Encounter type: initial encounter Qualified Code(s): S70.12XA - Contusion of left thigh, initial encounter - Problem List Review Problem List Initiated/Reviewed/Updated: Yes - My Orders Last 24 Hours: My Active Orders 03/02/17 16:30 cefTRIAXone [Rocephin] 2 gm Sodium Chloride 0.9% [Normal Saline] 50 ml IV Q24H 03/02/17 17:00 Azithromycin [Zithromax] 500 mg Sodium Chloride 0.9% [Normal Saline] 250 ml IV Q24H 03/02/17 Lunch Clear Liquid Diet [DIET] 03/03/17 09:00 Aspirin [Ecotrin] 325 mg PO DAILY Metoprolol Succinate [Toprol XL] 25 mg PO DAILY Tamsulosin [Flomax] 0.4 mg PO PCBREAKFAST 03/03/17 10:15 Furosemide [Lasix] 40 mg PO DAILY 03/04/17 05:00 BASIC METABOLIC PANEL,BMP [CHEM] Timed CBC W/O DIFF,HEMOGRAM [HEME] Timed (1) - Plan Plan:: Assessment and plan - Acute systolic congestive heart failure - history of systolic heart failure with acute on subacute respiratory decline per report. Ongoing improvement with diuresis but still has some evidence for volume overload though it is mild. Still retaining CO2 when he does not use noninvasive ventilation. Clinically looking better. -Furosemide this morning -Noninvasive ventilation at night -Cardiac monitoring -Daily weights -Intake and output monitoring -Restart beta jannette Acute respiratory failure with hypoxia and hypercapnia - secondary to congestive heart failure and possible pneumonia. More sleepy today with increased PCO2. -Continue antibiotics -Continue noninvasive ventilation as needed -Diuresis as above -Nebulizers as needed Left thigh hematoma with acute blood loss anemia - status post surgical fixation for hip fracture about 2 weeks ago. Hemoglobin responded to transfusion again. -Hemoglobin in the morning -Continue aspirin once daily tomorrow Acute urinary retention - significant bladder distention on arrival. No history of urinary retention but given advanced age most likely cause of the urinary retention would be BPH. -Continue De Guzman catheter -Start tamsulosin Coronary artery disease - remote history of coronary artery disease. No active symptoms. -Restart medical management Maintenance issues - - DVT prophylaxis - mechanical with large hematoma and anemia - GI prophylaxis - PPI - Nutrition - clear liquids - De Guzman catheter - placed in the emergency room, needs to remain in place for strict intake and output monitoring Disposition - anticipate discharge back to the halfway after the hospital stay Miguel A Nielson M.D.
[2017-03-03] MEDS: Furosemide 40 MG Tab PO SCH (11:33)
[2017-03-03] MEDS: cefTRIAXone 2 GM in Sodium Chloride 0.9% 50 ML IV SCH (15:56)
[2017-03-03] MEDS: Azithromycin 500 MG in Sodium Chloride 0.9% 250 ML IV SCH (16:32)
[2017-03-03] MEDS: Pantoprazole 40 MG Vial IVPUSH SCH (18:53)
[2017-03-03] MEDS ORDERED: Melatonin 3 MG Tab PO SCH ×2 (21:00→21:33)
[2017-03-03] MEDS: Melatonin 3 MG Tab PO SCH (21:30)
[2017-03-04] MEDS ORDERED: Haloperidol Lactate 5 MG/ML SDV IVPUSH PRN (02:43)
[2017-03-04] MEDS: Pantoprazole 40 MG Vial IVPUSH SCH ×2 (06:36→20:28)
[2017-03-04] MEDS ORDERED: Potassium Chloride 20 MEQ Tab.ER PO ONE (09:00)
[2017-03-04] MEDS: Furosemide 40 MG Tab PO SCH (09:34)
[2017-03-04] MEDS: Tamsulosin 0.4 MG Cap.ER PO SCH (09:34)
[2017-03-04] MEDS: Metoprolol Succinate 25 MG Tab.ER PO SCH (09:34)
[2017-03-04] MEDS: Lisinopril 20 MG Tab PO SCH (09:34)
--- NOTE | 2017-03-04 09:40 | PCM.PN ---
- General Info Date of Service: 03/04/17 Functional Status: Reports: Pain Controlled, Tolerating Diet - Review of Systems General: Reports: Weakness Pulmonary: Denies: Shortness of Breath Musculoskeletal: Denies: Leg Pain Systems Review Comment:: No acute events overnight. Patient is feeling better today and clinically looks better. He was able to wear the BiPAP mask until about 3 AM. He is more alert and interactive. Appetite seems to be picking up. He requires a fair amount of assistance to get out of bed but is moving a little better today. Hemoglobin has been stable. No recurrence of melena. - Patient Data Vitals - Most Recent: Last Vital Signs Temp 36.4 C 03/04/17 08:00 Pulse 75 03/04/17 09:34 Resp 25 H 03/04/17 08:00 BP 159/61 H 03/04/17 09:34 Pulse Ox 98 03/04/17 08:00 Weight - Most Recent: 93.894 kg I&O - Last 24 Hours: Intake & Output 03/03/17 03/04/17 03/04/17 22:59 06:59 14:59 Intake Total 1740 Output Total 1350 425 Balance 390 -425 Lab Results Last 24 Hours: Laboratory Results - last 24 hr 03/03/17 03/04/17 03/04/17 Range/Units 19:00 05:24 05:24 WBC 8.9 (4.5-11.0) K/uL RBC 2.87 L (4.30-5.90) M/uL Hgb 8.1 L 8.6 L (12.0-15.0) g/dL Hct 28.4 L (40.0-54.0) % MCV 99 H (80-98) fL MCH 30 (27-31) pg MCHC 30 L (32-36) % Plt Count 298 (150-400) K/uL Sodium 144 (140-148) mmol/L Potassium 3.5 L (3.6-5.2) mmol/L Chloride 100 (100-108) mmol/L Carbon Dioxide 41 H (21-32) mmol/L Anion Gap 6.5 (5.0-14.0) mmol/L BUN 24 H (7-18) mg/dL Creatinine 0.9 (0.8-1.3) mg/dL Est Cr Clr Drug Dosing 59.85 mL/min Estimated GFR (MDRD) > 60 (>60) Glucose 103 (74-106) mg/dL Calcium 8.0 L (8.5-10.1) mg/dL Jose Alfredo Results Last 24 Hours: Microbiology 03/03/17 18:10 Stool Occult Blood (JOSE ALFREDO) - Final Stool / Feces Med Orders - Current: Current Medications Acetaminophen (Tylenol) 650 mg PO Q4H PRN PRN Reason: Pain (Mild 1-3)/fever Acetaminophen (Tylenol) 650 mg RECTAL Q4H PRN PRN Reason: Mild pain/fever Albuterol (Proventil Neb Soln) 2.5 mg NEB Q4H PRN PRN Reason: Shortness Of Breath/wheezing Furosemide (Lasix) 40 mg PO DAILY [facility] Last Admin: 03/04/17 09:34 Dose: 40 mg Haloperidol Lactate (Haldol) 2 mg IVPUSH Q8H PRN PRN Reason: Agitation Last Admin: 03/04/17 02:58 Dose: 2 mg Azithromycin 500 mg/ Sodium (Chloride) 250 mls @ 250 mls/hr IV Q24H [facility] Last Admin: 03/03/17 16:32 Dose: 250 mls/hr Ceftriaxone Sodium 2 gm/ (Sodium Chloride) 50 mls @ 100 mls/hr IV Q24H [facility] Last Admin: 03/03/17 15:56 Dose: 100 mls/hr Lisinopril (Prinivil) 20 mg PO DAILY [facility] Last Admin: 03/04/17 09:34 Dose: 20 mg Melatonin (Melatonin) 9 mg PO BEDTIME [facility] Last Admin: 03/03/17 21:30 Dose: 9 mg Metoprolol Succinate (Toprol Xl) 25 mg PO DAILY [facility] Last Admin: 03/04/17 09:34 Dose: 25 mg Ondansetron HCl (Zofran Odt) 4 mg PO Q6H PRN PRN Reason: Nausea able to take PO Ondansetron HCl (Zofran) 4 mg IV Q6H PRN PRN Reason: Nausea/Vomiting Pantoprazole Sodium (Protonix Iv) 40 mg IVPUSH Q12H [facility] Tamsulosin HCl (Flomax) 0.4 mg PO PCBREAKFAST [facility] Last Admin: 03/04/17 09:34 Dose: 0.4 mg Discontinued Medications Aspirin (Ecotrin) 325 mg PO DAILY [facility] Last Admin: 03/03/17 08:52 Dose: 325 mg Furosemide (Lasix) 60 mg IVPUSH ONETIME ONE Stop: 02/28/17 12:47 Last Admin: 02/28/17 12:59 Dose: 60 mg Furosemide (Lasix) 60 mg IVPUSH ONETIME ONE Stop: 02/28/17 18:57 Last Admin: 02/28/17 19:14 Dose: 60 mg Furosemide (Lasix) 40 mg IVPUSH ONETIME ONE Stop: 03/01/17 09:01 Last Admin: 03/01/17 08:46 Dose: 40 mg Furosemide (Lasix) 40 mg IVPUSH ONETIME ONE Stop: 03/02/17 09:31 Last Admin: 03/02/17 09:27 Dose: 40 mg Potassium Chloride 20 meq/Lidocaine HCl 2 ml/ Sodium Chloride 112 mls @ 55 mls/ hr IV Q2H [facility] Stop: 03/01/17 13:29 Last Admin: 03/01/17 12:37 Dose: 55 mls/hr Potassium Chloride 20 meq/Lidocaine HCl 2 ml/ Sodium Chloride 112 mls @ 56 mls/ hr IV Q2H [facility] Stop: 03/02/17 13:59 Last Admin: 03/02/17 14:38 Dose: 56 mls/hr Melatonin (Melatonin) 6 mg PO BEDTIME [facility] Melatonin (Melatonin) 9 mg PO BEDTIME [facility] Naloxone HCl (Narcan) 0.4 mg IVPUSH ONETIME ONE Stop: 02/28/17 12:37 Last Admin: 02/28/17 12:56 Dose: 0.4 mg Pantoprazole Sodium (Protonix Iv) 40 mg IV ONETIME ONE Stop: 02/28/17 15:01 Last Admin: 02/28/17 16:05 Dose: 40 mg Pantoprazole Sodium (Protonix Iv) 40 mg IVPUSH Q12H [facility] Last Admin: 03/04/17 06:36 Dose: 40 mg Potassium Chloride (Klor-Con M20) 40 meq PO ONETIME ONE Stop: 03/01/17 08:08 Last Admin: 03/02/17 12:47 Dose: Not Given Potassium Chloride (Klor-Con M20) 40 meq PO ONETIME ONE Stop: 03/04/17 09:01 Last Admin: 03/04/17 09:34 Dose: 40 meq - Exam Quality Assessment: Supplemental Oxygen, Urine Catheter General: Alert, Oriented, Cooperative, No Acute Distress Neck: Supple Lungs: Clear to Auscultation, Normal Respiratory Effort, Decreased Breath Sounds (left lung base) Cardiovascular: Regular Rate, Regular Rhythm GI/Abdominal Exam: Soft, Non-Tender, No Distention Extremities: Pedal Edema (mild bilateral lower leg edema). No: Increased Warmth Skin: Warm, Dry Psy/Mental Status: Alert, Normal Affect - Problem List & Annotations (1) Systolic congestive heart failure SNOMED Code(s): 681686482 Code(s): I50.20 - UNSPECIFIED SYSTOLIC (CONGESTIVE) HEART FAILURE Status: Acute Current Visit: Yes Qualifiers: Congestive heart failure chronicity: acute Qualified Code(s): I50.21 - Acute systolic (congestive) heart failure (2) Acute respiratory failure with hypoxia and hypercapnia SNOMED Code(s): 05913054, 019658535 Code(s): J96.01 - ACUTE RESPIRATORY FAILURE WITH HYPOXIA; J96.02 - ACUTE RESPIRATORY FAILURE WITH HYPERCAPNIA Status: Acute Current Visit: Yes (3) Acute blood loss anemia SNOMED Code(s): 625224783 Code(s): D62 - ACUTE POSTHEMORRHAGIC ANEMIA Status: Acute Current Visit: Yes (4) Hematoma of left thigh SNOMED Code(s): 863188178 Code(s): S70.12XA - CONTUSION OF LEFT THIGH, INITIAL ENCOUNTER Status: Acute Current Visit: Yes Qualifiers: Encounter type: initial encounter Qualified Code(s): S70.12XA - Contusion of left thigh, initial encounter - Problem List Review Problem List Initiated/Reviewed/Updated: Yes - My Orders Last 24 Hours: My Active Orders 03/03/17 09:00 Metoprolol Succinate [Toprol XL] 25 mg PO DAILY Tamsulosin [Flomax] 0.4 mg PO PCBREAKFAST 03/03/17 10:15 Furosemide [Lasix] 40 mg PO DAILY 03/03/17 21:00 Melatonin 9 mg PO BEDTIME 03/03/17 Dinner 2 Gram Sodium Diet [DIET] 03/04/17 02:43 Haloperidol Lactate [Haldol] 2 mg IVPUSH Q8H PRN 03/04/17 07:00 PT Evaluation and Treatment [CONS] Routine 03/04/17 09:00 Lisinopril [Prinivil] 20 mg PO DAILY 03/04/17 21:00 Pantoprazole [ProTONIX IV] 40 mg IVPUSH Q12H 03/05/17 05:00 BASIC METABOLIC PANEL,BMP [CHEM] Timed CBC W/O DIFF,HEMOGRAM [HEME] Timed (1) - Plan Plan:: Assessment and plan - Acute systolic congestive heart failure - history of systolic heart failure with acute on subacute respiratory decline per report. Volume status seems to be nearing optimization. Tolerated transition to oral medications. Less dependence on noninvasive ventilation. -Furosemide daily -Noninvasive ventilation at night -Cardiac monitoring -Daily weights -Intake and output monitoring -Continue beta jannette and VIVIENNE inhibitor Acute respiratory failure with hypoxia and hypercapnia - secondary to congestive heart failure and possible pneumonia. clinically improving. -Continue antibiotics -Continue noninvasive ventilation as needed -Diuresis as above -Nebulizers as needed Left thigh hematoma with acute blood loss anemia - status post surgical fixation for hip fracture about 2 weeks ago. Hemoglobin stable. He did have an episode of melena yesterday that probably contributed to his anemia but his hemoglobin has been stable. -Hemoglobin in the morning -Hold aspirin for a few days Acute urinary retention - significant bladder distention on arrival. No history of urinary retention but given advanced age most likely cause of the urinary retention would be BPH. -Continue De Guzman catheter today, consider trial of voiding tomorrow -Start tamsulosin Coronary artery disease - remote history of coronary artery disease. No active symptoms. - continue medical management Maintenance issues - - DVT prophylaxis - mechanical with large hematoma and melena - GI prophylaxis - PPI - Nutrition - clear liquids - De Guzman catheter - placed in the emergency room, needs to remain in place for strict intake and output monitoring Disposition - anticipate discharge to the long-term after the hospital stay. Discharge to long-term in [place], [place] is planned for early next week. Miguel A Nielson M.D.
[2017-03-04] MEDS: cefTRIAXone 2 GM in Sodium Chloride 0.9% 50 ML IV SCH (16:11)
[2017-03-04] MEDS: Azithromycin 500 MG in Sodium Chloride 0.9% 250 ML IV SCH (16:52)
[2017-03-04] MEDS: Melatonin 3 MG Tab PO SCH (20:28)
[2017-03-05] MEDS: Acetaminophen 325 MG Tab PO PRN (03:13)
[2017-03-05] MEDS ORDERED: Magnesium Hydroxide 400 MG/5 ML Susp 30 ML Cup PO PRN (09:08)
[2017-03-05] MEDS ORDERED: Polyethylene Glycol 3350 Powder 17 GM Packet PO PRN (09:08)
--- NOTE | 2017-03-05 09:08 | PCM.PN ---
- General Info Date of Service: 03/05/17 Functional Status: Reports: Pain Controlled, Tolerating Diet - Review of Systems General: Reports: Weakness Pulmonary: Denies: Shortness of Breath Cardiovascular: Reports: Edema (mild) Systems Review Comment:: No acute events overnight. Mental status continues to improve and he did not require noninvasive ventilation overnight. Mild cough. Hypoxia seems to be slowly improving. He is very weak and requires significant assistance to get from the bed to the chair. Appetite has been good. Hemoglobin has been stable. 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 - Patient Data Vitals - Most Recent: Last Vital Signs Temp 35.4 C 03/05/17 08:00 Pulse 75 03/04/17 09:34 Resp 21 H 03/05/17 08:00 BP 133/52 L 03/05/17 08:00 Pulse Ox 92 L 03/05/17 08:00 Weight - Most Recent: 93.894 kg I&O - Last 24 Hours: Intake & Output 03/04/17 03/05/17 03/05/17 22:59 06:59 14:59 Intake Total 1040 500 Output Total 400 625 Balance 640 -125 Lab Results Last 24 Hours: Laboratory Results - last 24 hr 03/05/17 03/05/17 Range/Units 05:36 05:36 WBC 8.2 (4.5-11.0) K/uL RBC 2.88 L (4.30-5.90) M/uL Hgb 8.7 L (12.0-15.0) g/dL Hct 28.7 L (40.0-54.0) % MCV 100 H (80-98) fL MCH 30 (27-31) pg MCHC 30 L (32-36) % Plt Count 273 (150-400) K/uL Sodium 144 (140-148) mmol/L Potassium 3.3 L (3.6-5.2) mmol/L Chloride 102 (100-108) mmol/L Carbon Dioxide 41 H (21-32) mmol/L Anion Gap 4.3 L (5.0-14.0) mmol/L BUN 19 H (7-18) mg/dL Creatinine 0.8 (0.8-1.3) mg/dL Est Cr Clr Drug Dosing 67.34 mL/min Estimated GFR (MDRD) > 60 (>60) Glucose 116 H (74-106) mg/dL Calcium 8.2 L (8.5-10.1) mg/dL Med Orders - Current: Current Medications Acetaminophen (Tylenol) 650 mg PO Q4H PRN PRN Reason: Pain (Mild 1-3)/fever Last Admin: 03/05/17 03:13 Dose: 650 mg Acetaminophen (Tylenol) 650 mg RECTAL Q4H PRN PRN Reason: Mild pain/fever Albuterol (Proventil Neb Soln) 2.5 mg NEB Q4H PRN PRN Reason: Shortness Of Breath/wheezing Azithromycin (Zithromax) 500 mg PO QPM [facility] Cefdinir (Omnicef) 300 mg PO BID [facility] Furosemide (Lasix) 40 mg PO DAILY [facility] Last Admin: 03/04/17 09:34 Dose: 40 mg Haloperidol Lactate (Haldol) 2 mg IVPUSH Q8H PRN PRN Reason: Agitation Last Admin: 03/04/17 02:58 Dose: 2 mg Lisinopril (Prinivil) 20 mg PO DAILY [facility] Last Admin: 03/04/17 09:34 Dose: 20 mg Melatonin (Melatonin) 9 mg PO BEDTIME [facility] Last Admin: 03/04/17 20:28 Dose: 9 mg Metoprolol Succinate (Toprol Xl) 25 mg PO DAILY [facility] Last Admin: 03/04/17 09:34 Dose: 25 mg Ondansetron HCl (Zofran Odt) 4 mg PO Q6H PRN PRN Reason: Nausea able to take PO Ondansetron HCl (Zofran) 4 mg IV Q6H PRN PRN Reason: Nausea/Vomiting Pantoprazole Sodium (Protonix) 40 mg PO BIDAC [facility] Potassium Chloride (Klor-Con M20) 40 meq PO BID [facility] Stop: 03/05/17 21:01 Tamsulosin HCl (Flomax) 0.4 mg PO PCBREAKFAST [facility] Last Admin: 03/04/17 09:34 Dose: 0.4 mg Discontinued Medications Aspirin (Ecotrin) 325 mg PO DAILY [facility] Last Admin: 03/03/17 08:52 Dose: 325 mg Furosemide (Lasix) 60 mg IVPUSH ONETIME ONE Stop: 02/28/17 12:47 Last Admin: 02/28/17 12:59 Dose: 60 mg Furosemide (Lasix) 60 mg IVPUSH ONETIME ONE Stop: 02/28/17 18:57 Last Admin: 02/28/17 19:14 Dose: 60 mg Furosemide (Lasix) 40 mg IVPUSH ONETIME ONE Stop: 03/01/17 09:01 Last Admin: 03/01/17 08:46 Dose: 40 mg Furosemide (Lasix) 40 mg IVPUSH ONETIME ONE Stop: 03/02/17 09:31 Last Admin: 03/02/17 09:27 Dose: 40 mg Potassium Chloride 20 meq/Lidocaine HCl 2 ml/ Sodium Chloride 112 mls @ 55 mls/ hr IV Q2H [facility] Stop: 03/01/17 13:29 Last Admin: 03/01/17 12:37 Dose: 55 mls/hr Potassium Chloride 20 meq/Lidocaine HCl 2 ml/ Sodium Chloride 112 mls @ 56 mls/ hr IV Q2H [facility] Stop: 03/02/17 13:59 Last Admin: 03/02/17 14:38 Dose: 56 mls/hr Azithromycin 500 mg/ Sodium (Chloride) 250 mls @ 250 mls/hr IV Q24H [facility] Last Admin: 03/04/17 16:52 Dose: 250 mls/hr Ceftriaxone Sodium 2 gm/ (Sodium Chloride) 50 mls @ 100 mls/hr IV Q24H [facility] Last Admin: 03/04/17 16:11 Dose: 100 mls/hr Melatonin (Melatonin) 6 mg PO BEDTIME [facility] Melatonin (Melatonin) 9 mg PO BEDTIME [facility] Naloxone HCl (Narcan) 0.4 mg IVPUSH ONETIME ONE Stop: 02/28/17 12:37 Last Admin: 02/28/17 12:56 Dose: 0.4 mg Pantoprazole Sodium (Protonix Iv) 40 mg IV ONETIME ONE Stop: 02/28/17 15:01 Last Admin: 02/28/17 16:05 Dose: 40 mg Pantoprazole Sodium (Protonix Iv) 40 mg IVPUSH Q12H [facility] Last Admin: 03/04/17 06:36 Dose: 40 mg Pantoprazole Sodium (Protonix Iv) 40 mg IVPUSH Q12H [facility] Last Admin: 03/04/17 20:28 Dose: 40 mg Potassium Chloride (Klor-Con M20) 40 meq PO ONETIME ONE Stop: 03/01/17 08:08 Last Admin: 03/02/17 12:47 Dose: Not Given Potassium Chloride (Klor-Con M20) 40 meq PO ONETIME ONE Stop: 03/04/17 09:01 Last Admin: 03/04/17 09:34 Dose: 40 meq - Exam Quality Assessment: Supplemental Oxygen, Urine Catheter General: Alert, Oriented, Cooperative, No Acute Distress Neck: Supple Lungs: Clear to Auscultation, Normal Respiratory Effort, Decreased Breath Sounds (mild left lung base) Cardiovascular: Regular Rate, Regular Rhythm, Murmurs GI/Abdominal Exam: Soft, Non-Tender, No Distention Extremities: Pedal Edema (mild ankle edema). No: Increased Warmth Skin: Warm, Dry Psy/Mental Status: Alert, Normal Affect - Problem List & Annotations (1) Systolic congestive heart failure SNOMED Code(s): 506156239 Code(s): I50.20 - UNSPECIFIED SYSTOLIC (CONGESTIVE) HEART FAILURE Status: Acute Current Visit: Yes Qualifiers: Congestive heart failure chronicity: acute Qualified Code(s): I50.21 - Acute systolic (congestive) heart failure (2) Acute respiratory failure with hypoxia and hypercapnia SNOMED Code(s): 65202236, 799833729 Code(s): J96.01 - ACUTE RESPIRATORY FAILURE WITH HYPOXIA; J96.02 - ACUTE RESPIRATORY FAILURE WITH HYPERCAPNIA Status: Acute Current Visit: Yes (3) Acute blood loss anemia SNOMED Code(s): 037108543 Code(s): D62 - ACUTE POSTHEMORRHAGIC ANEMIA Status: Acute Current Visit: Yes (4) Hematoma of left thigh SNOMED Code(s): 184315612 Code(s): S70.12XA - CONTUSION OF LEFT THIGH, INITIAL ENCOUNTER Status: Acute Current Visit: Yes Qualifiers: Encounter type: initial encounter Qualified Code(s): S70.12XA - Contusion of left thigh, initial encounter - Problem List Review Problem List Initiated/Reviewed/Updated: Yes - My Orders Last 24 Hours: My Active Orders 03/04/17 09:00 Lisinopril [Prinivil] 20 mg PO DAILY 03/05/17 09:00 Potassium Chloride [Klor-Con M20] 40 meq PO BID 03/05/17 09:05 Transfer Patient (Change bed) [ADT] Routine Discontinue Telemetry Monitoring [Cardiac Monitoring Discontinue] [RC] Click to Edit 03/05/17 16:30 Pantoprazole [ProTONIX] 40 mg PO BIDAC 03/05/17 17:00 Azithromycin [Zithromax] 500 mg PO QPM 03/05/17 21:00 Cefdinir [Omnicef] 300 mg PO BID 03/06/17 05:00 BASIC METABOLIC PANEL,BMP [CHEM] Timed CBC W/O DIFF,HEMOGRAM [HEME] Timed (1) 03/06/17 07:00 DC De Guzman Catheter [Urinary Catheter Removal] [RC] Per Unit Routine - Plan Plan:: Assessment and plan - Acute systolic congestive heart failure - history of systolic heart failure. Volume status is stable and he is close to euvolemic at this time. Hypoxia continues to improve and he is not dependent on noninvasive ventilation area -Furosemide daily -Supplement oxygen -Daily weights -Intake and output monitoring -Continue beta jannette and VIVIENNE inhibitor Acute respiratory failure with hypoxia and hypercapnia - secondary to congestive heart failure and pneumonia. Ongoing clinical improvement with decreasing hypoxia. -Continue antibiotics -Diuresis as above -Nebulizers as needed Left thigh hematoma with acute blood loss anemia - status post surgical fixation for hip fracture about 2 weeks ago. Hematoma and bruising are improving. Deshaun will need to come out this week, had been scheduled for removal on 03/09. -Hemoglobin in the morning -Hold aspirin for a few days Melena - 2 episodes but hemoglobin has been stable. No heartburn symptoms or epigastric pain. Aspirin on hold. -Twice daily proton pump inhibitor -Continue to hold aspirin Acute urinary retention - significant bladder distention on arrival. No history of urinary retention but given advanced age most likely cause of the urinary retention would be BPH. -Continue De Guzman catheter today, planning to remove tomorrow -Continue tamsulosin Coronary artery disease - remote history of coronary artery disease. No active symptoms. - continue medical management Maintenance issues - - DVT prophylaxis - mechanical with large hematoma and melena - GI prophylaxis - twice daily PPI - Nutrition - regular diet - De Guzman catheter - placed in the emergency room, needs to remain in place for strict intake and output monitoring, will remove tomorrow Disposition - anticipate discharge to the [facility] after the hospital stay. Discharge to [facility] in [place], [place] is planned for early next week, probably Monday if he remains stable Miguel A Nielson M.D.
[2017-03-05] MEDS: Tamsulosin 0.4 MG Cap.ER PO SCH (09:39)
[2017-03-05] MEDS: Potassium Chloride 20 MEQ Tab.ER PO SCH ×2 (09:39→20:05)
[2017-03-05] MEDS: Lisinopril 20 MG Tab PO SCH (09:39)
[2017-03-05] MEDS: Furosemide 40 MG Tab PO SCH (09:39)
[2017-03-05] MEDS: Metoprolol Succinate 25 MG Tab.ER PO SCH (09:40)
[2017-03-05] MEDS: Pantoprazole 40 MG Tab.CR PO SCH ×2 (10:25→16:58)
[2017-03-05] MEDS: Pantoprazole 40 MG Vial IVPUSH SCH (14:35)
[2017-03-05] MEDS: Azithromycin 250 MG Tab PO SCH (16:58)
[2017-03-05] MEDS: Cefdinir 300 MG Cap PO SCH (20:05)
[2017-03-05] MEDS: Melatonin 3 MG Tab PO SCH (20:05)
[2017-03-06] MEDS: Acetaminophen 325 MG Tab PO PRN (00:52)
[2017-03-06] MEDS: Pantoprazole 40 MG Tab.CR PO SCH ×2 (08:12→16:50)
[2017-03-06] MEDS: Cefdinir 300 MG Cap PO SCH ×2 (09:13→20:35)
[2017-03-06] MEDS: Tamsulosin 0.4 MG Cap.ER PO SCH (09:13)
[2017-03-06] MEDS: Furosemide 40 MG Tab PO SCH (09:13)
[2017-03-06] MEDS: Metoprolol Succinate 25 MG Tab.ER PO SCH (09:13)
[2017-03-06] MEDS: Lisinopril 20 MG Tab PO SCH (09:13)
[2017-03-06] MEDS: Azithromycin 250 MG Tab PO SCH (16:50)
--- NOTE | 2017-03-06 17:41 | PCM.PN ---
- General Info Date of Service: 03/06/17 Functional Status: Reports: Pain Controlled, Tolerating Diet - Review of Systems General: Reports: Weakness. Denies: Fever, Chills Pulmonary: Reports: No Symptoms Cardiovascular: Reports: No Symptoms Gastrointestinal: Reports: No Symptoms Musculoskeletal: Reports: Leg Pain, Joint Pain Psychiatric: Denies: Confusion, Agitation Systems Review Comment:: Mr. Ohara has improved significantly over the past few days. He is currently on room air with no further respiratory compromise. Vital signs have been stable and he has remained afebrile. Hemoglobin stable with no further evidence of active bleeding. He's had 2 episodes of relatively small melenic stools, none over the past 24 hours. He is currently treated with proton pump inhibitor therapy twice daily, EGD is not been performed because of his significant respiratory compromise. Plan is for discharge to half-way tomorrow morning. - Patient Data Vitals - Most Recent: Last Vital Signs Temp 98.1 F 03/06/17 16:32 Pulse 76 03/06/17 16:32 Resp 20 03/06/17 16:32 BP 115/46 L 03/06/17 16:32 Pulse Ox 90 L 03/06/17 16:32 Weight - Most Recent: 198 lb 6.656 oz I&O - Last 24 Hours: Intake & Output 03/06/17 03/06/17 03/06/17 06:59 14:59 22:59 Intake Total 1080 Output Total 400 575 Balance -400 505 Lab Results Last 24 Hours: Laboratory Results - last 24 hr 03/06/17 03/06/17 Range/Units 05:00 05:00 WBC 6.7 (4.5-11.0) K/uL RBC 2.94 L (4.30-5.90) M/uL Hgb 8.8 L (12.0-15.0) g/dL Hct 29.1 L (40.0-54.0) % MCV 99 H (80-98) fL MCH 30 (27-31) pg MCHC 30 L (32-36) % Plt Count 296 (150-400) K/uL Sodium 144 (140-148) mmol/L Potassium 3.8 (3.6-5.2) mmol/L Chloride 105 (100-108) mmol/L Carbon Dioxide 41 H (21-32) mmol/L Anion Gap 1.8 L (5.0-14.0) mmol/L BUN 17 (7-18) mg/dL Creatinine 0.8 (0.8-1.3) mg/dL Est Cr Clr Drug Dosing 67.17 mL/min Estimated GFR (MDRD) > 60 (>60) Glucose 103 (74-106) mg/dL Calcium 8.2 L (8.5-10.1) mg/dL Med Orders - Current: Current Medications Acetaminophen (Tylenol) 650 mg PO Q4H PRN PRN Reason: Pain (Mild 1-3)/fever Last Admin: 03/06/17 00:52 Dose: 650 mg Acetaminophen (Tylenol) 650 mg RECTAL Q4H PRN PRN Reason: Mild pain/fever Albuterol (Proventil Neb Soln) 2.5 mg NEB Q4H PRN PRN Reason: Shortness Of Breath/wheezing Azithromycin (Zithromax) 500 mg PO QPM [facility] Last Admin: 03/06/17 16:50 Dose: 500 mg Cefdinir (Omnicef) 300 mg PO BID [facility] Last Admin: 03/06/17 09:13 Dose: 300 mg Furosemide (Lasix) 40 mg PO DAILY [facility] Last Admin: 03/06/17 09:13 Dose: 40 mg Haloperidol Lactate (Haldol) 2 mg IVPUSH Q8H PRN PRN Reason: Agitation Last Admin: 03/04/17 02:58 Dose: 2 mg Lisinopril (Prinivil) 20 mg PO DAILY [facility] Last Admin: 03/06/17 09:13 Dose: 20 mg Magnesium Hydroxide (Milk Of Magnesia) 30 ml PO BID PRN PRN Reason: Constipation Melatonin (Melatonin) 9 mg PO BEDTIME [facility] Last Admin: 03/05/17 20:05 Dose: 9 mg Metoprolol Succinate (Toprol Xl) 25 mg PO DAILY [facility] Last Admin: 03/06/17 09:13 Dose: 25 mg Ondansetron HCl (Zofran Odt) 4 mg PO Q6H PRN PRN Reason: Nausea able to take PO Ondansetron HCl (Zofran) 4 mg IV Q6H PRN PRN Reason: Nausea/Vomiting Pantoprazole Sodium (Protonix) 40 mg PO BIDAC [facility] Last Admin: 03/06/17 16:50 Dose: 40 mg Polyethylene Glycol (Miralax) 17 gm PO DAILY PRN PRN Reason: Constipation Tamsulosin HCl (Flomax) 0.4 mg PO PCBREAKFAST [facility] Last Admin: 03/06/17 09:13 Dose: 0.4 mg Discontinued Medications Aspirin (Ecotrin) 325 mg PO DAILY [facility] Last Admin: 03/03/17 08:52 Dose: 325 mg Furosemide (Lasix) 60 mg IVPUSH ONETIME ONE Stop: 02/28/17 12:47 Last Admin: 02/28/17 12:59 Dose: 60 mg Furosemide (Lasix) 60 mg IVPUSH ONETIME ONE Stop: 02/28/17 18:57 Last Admin: 02/28/17 19:14 Dose: 60 mg Furosemide (Lasix) 40 mg IVPUSH ONETIME ONE Stop: 03/01/17 09:01 Last Admin: 03/01/17 08:46 Dose: 40 mg Furosemide (Lasix) 40 mg IVPUSH ONETIME ONE Stop: 03/02/17 09:31 Last Admin: 03/02/17 09:27 Dose: 40 mg Potassium Chloride 20 meq/Lidocaine HCl 2 ml/ Sodium Chloride 112 mls @ 55 mls/ hr IV Q2H [facility] Stop: 03/01/17 13:29 Last Admin: 03/01/17 12:37 Dose: 55 mls/hr Potassium Chloride 20 meq/Lidocaine HCl 2 ml/ Sodium Chloride 112 mls @ 56 mls/ hr IV Q2H [facility] Stop: 03/02/17 13:59 Last Admin: 03/02/17 14:38 Dose: 56 mls/hr Azithromycin 500 mg/ Sodium (Chloride) 250 mls @ 250 mls/hr IV Q24H [facility] Last Admin: 03/04/17 16:52 Dose: 250 mls/hr Ceftriaxone Sodium 2 gm/ (Sodium Chloride) 50 mls @ 100 mls/hr IV Q24H [facility] Last Admin: 03/04/17 16:11 Dose: 100 mls/hr Melatonin (Melatonin) 6 mg PO BEDTIME [facility] Melatonin (Melatonin) 9 mg PO BEDTIME [facility] Naloxone HCl (Narcan) 0.4 mg IVPUSH ONETIME ONE Stop: 02/28/17 12:37 Last Admin: 02/28/17 12:56 Dose: 0.4 mg Pantoprazole Sodium (Protonix Iv) 40 mg IV ONETIME ONE Stop: 02/28/17 15:01 Last Admin: 02/28/17 16:05 Dose: 40 mg Pantoprazole Sodium (Protonix Iv) 40 mg IVPUSH Q12H [facility] Last Admin: 03/04/17 06:36 Dose: 40 mg Pantoprazole Sodium (Protonix Iv) 40 mg IVPUSH Q12H [facility] Last Admin: 03/05/17 14:35 Dose: Not Given Potassium Chloride (Klor-Con M20) 40 meq PO ONETIME ONE Stop: 03/01/17 08:08 Last Admin: 03/02/17 12:47 Dose: Not Given Potassium Chloride (Klor-Con M20) 40 meq PO ONETIME ONE Stop: 03/04/17 09:01 Last Admin: 03/04/17 09:34 Dose: 40 meq Potassium Chloride (Klor-Con M20) 40 meq PO BID [facility] Stop: 03/05/17 21:01 Last Admin: 03/05/17 20:05 Dose: 40 meq - Exam Quality Assessment: Urine Catheter, DVT Prophylaxis. No: Supplemental Oxygen General: Alert, Oriented, Cooperative, No Acute Distress Lungs: Clear to Auscultation, Normal Respiratory Effort Cardiovascular: Regular Rate, Regular Rhythm, No Murmurs GI/Abdominal Exam: Normal Bowel Sounds, Soft, Non-Tender, No Distention Extremities: Normal Inspection, No Pedal Edema Skin: Warm, Dry, Intact - Problem List Review Problem List Initiated/Reviewed/Updated: Yes - My Orders Last 24 Hours: My Active Orders 03/06/17 14:17 Peripheral IV Discontinue [OM.PC] Routine 03/06/17 17:36 Remove De Guzman Catheter [Urinary Catheter Removal] [RC] Per Unit Routine - Plan Plan:: Assessment and plan - Acute systolic congestive heart failure - history of systolic heart failure. Volume status is stable and he is close to euvolemic at this time. Hypoxia has resolved, he is now on room air -Furosemide daily -Supplement oxygen -Daily weights -Intake and output monitoring -Continue beta jannette and VIVIENNE inhibitor Acute respiratory failure with hypoxia and hypercapnia - significantly improved over the past few days with current management -Continue antibiotics -Diuresis as above -Nebulizers as needed Left thigh hematoma with acute blood loss anemia - status post surgical fixation for hip fracture about 2 weeks ago. Hematoma and bruising are improving. Deshaun will need to come out this week, had been scheduled for removal on 03/09. -Hold aspirin for a few days Melena - 2 episodes but hemoglobin has been stable. No heartburn symptoms or epigastric pain. No further evidence of active bleeding, EGD has been held to this point because of respiratory compromise. Would need to consider discopathy evaluation if there is any further evidence of active bleeding. -Twice daily proton pump inhibitor -Continue to hold aspirin Acute urinary retention - significant bladder distention on arrival. No history of urinary retention but given advanced age most likely cause of the urinary retention would be BPH. -Discontinue De Guzman catheter today -Continue tamsulosin Coronary artery disease - remote history of coronary artery disease. No active symptoms. - continue medical management Maintenance issues - - DVT prophylaxis - mechanical with large hematoma and melena - GI prophylaxis - twice daily PPI - Nutrition - regular diet - De Guzman catheter - placed in the emergency room, needs to remain in place for strict intake and output monitoring, will remove tomorrow Disposition - anticipate discharge to the half-way after the hospital stay. Discharge to half-way in [place], [place] is planned for early next week, probably Monday if he remains stable
--- NOTE | 2017-03-06 18:06 | PCM.DCSUM1 ---
Discharge Summary - Hospital Course Brief History: Mr. Ohara is an 87-year-old gentleman who had experienced a left hip fracture and undergoing surgical repair. He was readmitted with significant respiratory compromise secondary to congestive heart failure with fluid overload. - Discharge Data Discharge Date: 03/07/17 Discharge Disposition: DC/Tfer to SNF 03 Condition: Good - Discharge Diagnosis/Problem(s) (1) Pneumonia SNOMED Code(s): 870828067 ICD Code: J18.9 - PNEUMONIA, UNSPECIFIED ORGANISM Status: Acute Current Visit: Yes (2) Urinary retention SNOMED Code(s): 570849805 ICD Code: R33.9 - RETENTION OF URINE, UNSPECIFIED Status: Acute Current Visit: Yes (3) Acute blood loss anemia SNOMED Code(s): 232676818 ICD Code: D62 - ACUTE POSTHEMORRHAGIC ANEMIA Status: Acute Current Visit : Yes (4) Acute respiratory failure with hypoxia and hypercapnia SNOMED Code(s): 84428977, 324144049 ICD Code: J96.01 - ACUTE RESPIRATORY FAILURE WITH HYPOXIA; J96.02 - ACUTE RESPIRATORY FAILURE WITH HYPERCAPNIA Status: Acute Current Visit: Yes (5) Hematoma of left thigh SNOMED Code(s): 849717325 ICD Code: S70.12XA - CONTUSION OF LEFT THIGH, INITIAL ENCOUNTER Status: Acute Current Visit: Yes Qualifiers: Encounter type: initial encounter Qualified Code(s): S70.12XA - Contusion of left thigh, initial encounter (6) Hip fracture, left SNOMED Code(s): 057002373 ICD Code: S72.002A - FRACTURE OF UNSP PART OF NECK OF LEFT FEMUR, INIT Status: Acute Current Visit: No Qualifiers: Encounter type: initial encounter Fracture type: closed Qualified Code(s) : S72.002A - Fracture of unspecified part of neck of left femur, initial encounter for closed fracture (7) CHF (congestive heart failure) SNOMED Code(s): 72793971 ICD Code: I50.9 - HEART FAILURE, UNSPECIFIED Status: Chronic Current Visit: No Qualifiers: Congestive heart failure type: combined Congestive heart failure chronicity : chronic Qualified Code(s): I50.42 - Chronic combined systolic (congestive) and diastolic (congestive) heart failure - Patient Summary/Data Consults: Consultations 03/04/17 07:00 PT Evaluation and Treatment [CONS] Routine Please Evaluate and Treat. PT Reason for Consult: Strengthening This query below is only for informational purposes and is not editable. Admission Diagnosis/Problem: CHF, Congestive heart failure Hospital Course: Mr. Ohara is an 87-year-old gentleman who unfortunately fell and experienced a left hip fracture. He was hospitalized at this facility and underwent surgical repair and then was discharged to the alf. He developed significant respiratory compromise and was brought into the emergency department for further evaluation. Chest x-ray on admission suggested pulmonary edema secondary to congestive heart failure, he was treated with IV diuretic therapy but continued to experience some respiratory compromise with hypoxia and hypercapnia. On further evaluation was felt to have underlying pneumonia and was started on IV antibiotics, following this he did experience good improvement in his respiratory status and by the time of discharge had adequate oxygenation and oxygen saturations on room air. He also experienced delirium with mild agitation this was thought to be secondary to the underlying infection as well as hypoxia. Prior to discharge his mentation had improved significantly with no further evidence of delirium or agitation. Hemoglobin was low when he was noted to have a significant hematoma in his left thigh likely related to the hip fracture and surgery. He was transfused one unit of red blood cells and following this his hemoglobin remained within stable range. During the hospital stay he did have 2 episodes of melenic-appearing stool, stool Hemoccult was found to be positive. This was felt to be likely secondary to some inflammation the stomach related to recent stress of his significant illness and surgery. EGD was not performed because of his respiratory compromise and he was treated with proton pump inhibitor therapy twice daily. There was no further evidence of bleeding over the last few days of his hospital stay. Hemoglobin remained stable despite these episodes and it was not felt that the bleeding was significant. He will be discharged home on additional 5 days of oral antibiotic therapy for pneumonia as well as oral diuretic therapy on a daily basis. On admission he did have significant urinary retention and a De Guzman catheter was placed, this was felt to be secondary to benign prostatic hypertrophy. He was started on Flomax 0.4 mg daily and the De Guzman catheter was removed prior to discharge. Activity will be as tolerated and he should receive daily physical therapy and occupational therapy while at the alf. Because of his congestive heart failure will be on a 2 g sodium diet. Follow-up with primary care should be as needed and he should have an appointment with orthopedic surgery in 2 weeks for follow-up of his surgical repair of hip fracture. Kaleb should be removed from his incision on March 09. Laboratory studies including a BMP and CBC should be obtained in one week. - Patient Instructions Diet: Low Sodium Activity: As Tolerated Other/Special Instructions: Follow-up appointment with orthopedic surgery in 2 weeks. Please remove kaleb on March 09. Follow-up labs in one week including a BMP and CBC. Daily physical therapy and occupational therapy while at the alf. - Discharge Plan Prescriptions/Med Rec: Cefdinir [IJD: Cefdinir] 300 mg PO BID #10 capsule Furosemide [Lasix] 40 mg PO DAILY #30 tablet Pantoprazole [ProTONIX] 40 mg PO DAILY #30 tab.cr Tamsulosin [Flomax] 0.4 mg PO PCBREAKFAST #30 cap.er Home Medications: Home Meds Aspirin [Ecotrin] 325 mg PO BID #60 tab.ec 02/17/17 [Rx] Carbamide Peroxide [Debrox 6.5% Otic Soln] 4 drop EARLF DAILY #1 bottle [Rx] Docusate Sodium/Sennosides [Senna Plus] 1 tab PO BID PRN #60 tablet 02/17/17 [Rx ] Lisinopril [Prinivil] 20 mg PO DAILY #30 tablet 02/17/17 [Rx] Melatonin 5 mg PO BEDTIME #30 tablet 02/17/17 [Rx] Metoprolol Succinate 25 mg PO DAILY #30 tab.er.24h 02/17/17 [Rx] Acetaminophen 1,000 mg PO TID 02/28/17 [History] Cefdinir [IJD: Cefdinir] 300 mg PO BID #10 capsule 03/06/17 [Rx] Furosemide [Lasix] 40 mg PO DAILY #30 tablet 03/06/17 [Rx] Pantoprazole [ProTONIX] 40 mg PO DAILY #30 tab.cr 03/06/17 [Rx] Tamsulosin [Flomax] 0.4 mg PO PCBREAKFAST #30 cap.er 03/06/17 [Rx] oxyCODONE 5 mg PO Q4H PRN #20 tablet 03/06/17 [Rx] Forms: ED Department Discharge Referrals: PCP,None [Primary Care Provider] - - Patient Data Vitals - Most Recent: Last Vital Signs Temp 98.1 F 03/06/17 16:32 Pulse 76 03/06/17 16:32 Resp 20 03/06/17 16:32 BP 115/46 L 03/06/17 16:32 Pulse Ox 90 L 03/06/17 16:32 Weight - Most Recent: 198 lb 6.656 oz I&O - Last 24 hours: Intake & Output 03/06/17 03/06/17 03/06/17 06:59 14:59 22:59 Intake Total 1080 Output Total 400 575 Balance -400 505 Lab Results - Last 24 hrs: Laboratory Results - last 24 hr 03/06/17 03/06/17 Range/Units 05:00 05:00 WBC 6.7 (4.5-11.0) K/uL RBC 2.94 L (4.30-5.90) M/uL Hgb 8.8 L (12.0-15.0) g/dL Hct 29.1 L (40.0-54.0) % MCV 99 H (80-98) fL MCH 30 (27-31) pg MCHC 30 L (32-36) % Plt Count 296 (150-400) K/uL Sodium 144 (140-148) mmol/L Potassium 3.8 (3.6-5.2) mmol/L Chloride 105 (100-108) mmol/L Carbon Dioxide 41 H (21-32) mmol/L Anion Gap 1.8 L (5.0-14.0) mmol/L BUN 17 (7-18) mg/dL Creatinine 0.8 (0.8-1.3) mg/dL Est Cr Clr Drug Dosing 67.17 mL/min Estimated GFR (MDRD) > 60 (>60) Glucose 103 (74-106) mg/dL Calcium 8.2 L (8.5-10.1) mg/dL Med Orders - Current: Current Medications Acetaminophen (Tylenol) 650 mg PO Q4H PRN PRN Reason: Pain (Mild 1-3)/fever Last Admin: 03/06/17 00:52 Dose: 650 mg Acetaminophen (Tylenol) 650 mg RECTAL Q4H PRN PRN Reason: Mild pain/fever Albuterol (Proventil Neb Soln) 2.5 mg NEB Q4H PRN PRN Reason: Shortness Of Breath/wheezing Azithromycin (Zithromax) 500 mg PO QPM [facility] Last Admin: 03/06/17 16:50 Dose: 500 mg Cefdinir (Omnicef) 300 mg PO BID [facility] Last Admin: 03/06/17 09:13 Dose: 300 mg Furosemide (Lasix) 40 mg PO DAILY [facility] Last Admin: 03/06/17 09:13 Dose: 40 mg Haloperidol Lactate (Haldol) 2 mg IVPUSH Q8H PRN PRN Reason: Agitation Last Admin: 03/04/17 02:58 Dose: 2 mg Lisinopril (Prinivil) 20 mg PO DAILY [facility] Last Admin: 03/06/17 09:13 Dose: 20 mg Magnesium Hydroxide (Milk Of Magnesia) 30 ml PO BID PRN PRN Reason: Constipation Melatonin (Melatonin) 9 mg PO BEDTIME [facility] Last Admin: 03/05/17 20:05 Dose: 9 mg Metoprolol Succinate (Toprol Xl) 25 mg PO DAILY [facility] Last Admin: 03/06/17 09:13 Dose: 25 mg Ondansetron HCl (Zofran Odt) 4 mg PO Q6H PRN PRN Reason: Nausea able to take PO Ondansetron HCl (Zofran) 4 mg IV Q6H PRN PRN Reason: Nausea/Vomiting Pantoprazole Sodium (Protonix) 40 mg PO BIDAC [facility] Last Admin: 03/06/17 16:50 Dose: 40 mg Polyethylene Glycol (Miralax) 17 gm PO DAILY PRN PRN Reason: Constipation Tamsulosin HCl (Flomax) 0.4 mg PO PCBREAKFAST [facility] Last Admin: 03/06/17 09:13 Dose: 0.4 mg Discontinued Medications Aspirin (Ecotrin) 325 mg PO DAILY [facility] Last Admin: 03/03/17 08:52 Dose: 325 mg Furosemide (Lasix) 60 mg IVPUSH ONETIME ONE Stop: 02/28/17 12:47 Last Admin: 02/28/17 12:59 Dose: 60 mg Furosemide (Lasix) 60 mg IVPUSH ONETIME ONE Stop: 02/28/17 18:57 Last Admin: 02/28/17 19:14 Dose: 60 mg Furosemide (Lasix) 40 mg IVPUSH ONETIME ONE Stop: 03/01/17 09:01 Last Admin: 03/01/17 08:46 Dose: 40 mg Furosemide (Lasix) 40 mg IVPUSH ONETIME ONE Stop: 03/02/17 09:31 Last Admin: 03/02/17 09:27 Dose: 40 mg Potassium Chloride 20 meq/Lidocaine HCl 2 ml/ Sodium Chloride 112 mls @ 55 mls/ hr IV Q2H [facility] Stop: 03/01/17 13:29 Last Admin: 03/01/17 12:37 Dose: 55 mls/hr Potassium Chloride 20 meq/Lidocaine HCl 2 ml/ Sodium Chloride 112 mls @ 56 mls/ hr IV Q2H [facility] Stop: 03/02/17 13:59 Last Admin: 03/02/17 14:38 Dose: 56 mls/hr Azithromycin 500 mg/ Sodium (Chloride) 250 mls @ 250 mls/hr IV Q24H [facility] Last Admin: 03/04/17 16:52 Dose: 250 mls/hr Ceftriaxone Sodium 2 gm/ (Sodium Chloride) 50 mls @ 100 mls/hr IV Q24H [facility] Last Admin: 03/04/17 16:11 Dose: 100 mls/hr Melatonin (Melatonin) 6 mg PO BEDTIME [facility] Melatonin (Melatonin) 9 mg PO BEDTIME [facility] Naloxone HCl (Narcan) 0.4 mg IVPUSH ONETIME ONE Stop: 02/28/17 12:37 Last Admin: 02/28/17 12:56 Dose: 0.4 mg Pantoprazole Sodium (Protonix Iv) 40 mg IV ONETIME ONE Stop: 02/28/17 15:01 Last Admin: 02/28/17 16:05 Dose: 40 mg Pantoprazole Sodium (Protonix Iv) 40 mg IVPUSH Q12H [facility] Last Admin: 03/04/17 06:36 Dose: 40 mg Pantoprazole Sodium (Protonix Iv) 40 mg IVPUSH Q12H [facility] Last Admin: 03/05/17 14:35 Dose: Not Given Potassium Chloride (Klor-Con M20) 40 meq PO ONETIME ONE Stop: 03/01/17 08:08 Last Admin: 03/02/17 12:47 Dose: Not Given Potassium Chloride (Klor-Con M20) 40 meq PO ONETIME ONE Stop: 03/04/17 09:01 Last Admin: 03/04/17 09:34 Dose: 40 meq Potassium Chloride (Klor-Con M20) 40 meq PO BID [facility] Stop: 03/05/17 21:01 Last Admin: 03/05/17 20:05 Dose: 40 meq *Q Meaningful Use (DIS) - VTE *Q VTE Criteria *Q: VTE Pharmacological Contraindications *Q: Risk of Bleeding - Stroke *Q Stroke Criteria *Q: - AMI *Q AMI Criteria *Q:
[2017-03-06] MEDS: Melatonin 3 MG Tab PO SCH (20:35)
[2017-03-07 07:11] VITALS: BP 128/60
[2017-03-07] MEDS: Tamsulosin 0.4 MG Cap.ER PO SCH (08:04)
[2017-03-07] MEDS: Pantoprazole 40 MG Tab.CR PO SCH (08:04)
[2017-03-07] MEDS: Furosemide 40 MG Tab PO SCH (08:04)
[2017-03-07] MEDS: Metoprolol Succinate 25 MG Tab.ER PO SCH (08:05)
[2017-03-07] MEDS: Cefdinir 300 MG Cap PO SCH (08:05)
[2017-03-07] MEDS: Lisinopril 20 MG Tab PO SCH (08:05)
== END 2017-03-07 10:45 | DRG 193 ==
LOC: JP.ED 11:56 → JP.ICU 13:33 → JP.MS 03-05 13:45
PROVIDERS: ADMIT Internal Medicine; ATTEND Hospitalist
PROC: 30233N1 Transfusion of Nonautologous Red Blood Cells into Peripheral Vein, Percutaneous Approach (ICD-10-PCS; principal; 2017-02-28)
PROC: 30233N1 Transfusion of Nonautologous Red Blood Cells into Peripheral Vein, Percutaneous Approach (ICD-10-PCS; 2017-03-02)
DX: J18.9 Pneumonia, unspecified organism (principal); J96.01 Acute respiratory failure with hypoxia; J96.02 Acute respiratory failure with hypercapnia; I50.42 Chronic combined systolic (congestive) and diastolic (congestive) heart failure; D62 Acute posthemorrhagic anemia; L76.32 Postprocedural hematoma of skin and subcutaneous tissue following other procedure; K92.1 Melena; R33.9 Retention of urine, unspecified; I11.0 Hypertensive heart disease with heart failure; Z66 Do not resuscitate; N40.1 Benign prostatic hyperplasia with lower urinary tract symptoms; S72.002D Fracture of unspecified part of neck of left femur, subsequent encounter for closed fracture with routine healing; I25.10 Atherosclerotic heart disease of native coronary artery without angina pectoris; R41.0 Disorientation, unspecified; Z95.1 Presence of aortocoronary bypass graft; H91.90 Unspecified hearing loss, unspecified ear; Z79.82 Long term (current) use of aspirin
CPT/HCPCS: 36415; 36600; 51702; 71010 ×2; 80053; 81001; 82803; 83880; 84484; 85025; 86850; 86900; 86901; 86920 ×2; 86922 ×2; 93005; 93010; 96374; 96375; 99285 ×2; J1940; J2310; 36430; 70450; 70450-26; 73502-26-LT; 73502-LT; 80048; 82272; 83735; 84132; 85018; 85027; 94660; 97110-GP; 97162-GP; 97530-GP; A9270-GY; C9113; J0456; J0696; J1630; J3480; J7030; J7050; P9016